=== PATIENT | female | born 1930 | race Caucasian/White ===

== ENCOUNTER 2016-11-30 08:00 | Outpatient (CLI) | payer MEDICARE, OTHER | END 2016-11-30 08:01 | disposition home or self-care (01) | DX: N39.0 Urinary tract infection, site not specified (principal) ==

== ENCOUNTER 2016-12-03 14:36 | Outpatient (CLI) | payer MEDICARE, OTHER ==
[2016-12-03] MEDS ORDERED: IOPAMIDOL-300 50 ML VIAL PO ONE (18:49)
[2016-12-03] MEDS ORDERED: IOPAMIDOL-300 100 ML VIAL IVP ONE (18:49)
== END 2016-12-03 14:37 | disposition home or self-care (01) ==
DX: R05 Cough (principal); R91.8 Other nonspecific abnormal finding of lung field; I70.0 Atherosclerosis of aorta; Z95.2 Presence of prosthetic heart valve
CPT/HCPCS: 36415; 71260; 82565; Q9967

== ENCOUNTER 2016-12-11 10:22 | Outpatient (CLI) | payer MEDICARE, OTHER | END 2016-12-11 10:23 | disposition home or self-care (01) | DX: I35.0 Nonrheumatic aortic (valve) stenosis (principal); Z95.2 Presence of prosthetic heart valve; I05.9 Rheumatic mitral valve disease, unspecified ==

== ENCOUNTER 2017-01-05 14:45 | Outpatient (CLI) | payer MEDICARE, OTHER | END 2017-01-05 14:46 | disposition home or self-care (01) | DX: I10 Essential (primary) hypertension (principal) ==

== ENCOUNTER 2017-12-02 08:00 | Outpatient (CLI) | payer MEDICARE, OTHER ==
[2017-12-02 21:05] LABS: CC,BF RBC 1528000 /mm^3; LYMPHOCYTES %,BODY FLUID 30; MONOCYTES %,BODY FLUID 10 %
[2017-12-02 21:06] LABS: BF COLOR BLOODY; BF SOURCE SYNOVIAL
== END 2017-12-02 08:01 | disposition home or self-care (01) ==
LOC: LAB.R 08:00
PROVIDERS: ATTEND Orthopaedic Surgery
DX: M25.552 Pain in left hip (principal)
CPT/HCPCS: 89051

== ENCOUNTER 2017-12-02 13:14 | Outpatient (CLI) | payer MEDICARE, OTHER ==
[2017-12-02] MEDS ORDERED: IOTHALAMATE MEGLUMINE 50 ML VIAL ONE (13:53)
[2017-12-02] MEDS ORDERED: LIDOCAINE 1% 10 ML MDV ONE (13:54)
[2017-12-02] MEDS ORDERED: BUFFERED LIDOCAINE 10 ML SYRINGE IU ONE (15:14)
[2017-12-02] MEDS ORDERED: IOTHALAMATE MEGLUMINE 50 ML VIAL IVP ONE (15:14)
--- NOTE | 2017-12-02 16:47 | XRAY Report ---
DATE OF SERVICE: 12/02/2017 LEFT HIP ASPIRATION: 12/02/2017 COMPARISON: None. INDICATION: Left hip pain. TOTAL FLUORO TIME: 1 MINUTE 36 SECONDS. TOTAL IMAGES: ONE. TOTAL DOSE: NOT RECORDED. TECHNIQUE=FINDINGS: Risks and benefits of the procedure were discussed with the patient and she desired to proceed. A standard timeout was performed, which verified the patient's name, date of , and the left hip as the correct joint. The patient was prepped and draped in normal sterile fashion. 10 mL of buffered lidocaine were injected into the soft tissues for local anesthesia. A 20-gauge spinal needle was introduced into the joint and 0.25 mL of contrast were injected into the joint to confirm placement. Minimal aspirate was obtained. There was no blood loss during the procedure. No complications. Aspirated contents were injected into a purple top tube and sent to the laboratory for analysis. IMPRESSION: SUCCESSFUL PLACEMENT OF THE NEEDLE WITHIN THE LEFT HIP. MINIMAL ASPIRATE SENT TO THE LABORATORY. TD: 12/02/2017 17:36 CHRISTY
== END 2017-12-02 13:15 | disposition home or self-care (01) ==
LOC: DI 13:14
PROVIDERS: ATTEND Orthopaedic Surgery
DX: M25.552 Pain in left hip (principal)
CPT/HCPCS: 20610; 77002; 89051; Q9961

== ENCOUNTER 2018-01-26 08:28 | Outpatient (CLI) | payer MEDICARE, OTHER ==
[2018-01-26 13:44] LABS: CALCIUM 9.6 mg/dL (8.5-10.3); CREATININE 1.1 mg/dL (0.4-1.0)
== END 2018-01-26 08:29 | disposition home or self-care (01) ==
LOC: LAB.WCP 08:28
PROVIDERS: ATTEND Internal Medicine Cardiovascular Disease
DX: I35.0 Nonrheumatic aortic (valve) stenosis (principal)
CPT/HCPCS: 36415; 80048

== ENCOUNTER 2018-01-31 08:00 | Outpatient (CLI) | payer MEDICARE, OTHER | END 2018-01-31 08:01 | disposition home or self-care (01) | LOC: LAB.WCP 08:00 | PROVIDERS: ATTEND Family Medicine | DX: R39.11 Hesitancy of micturition (principal) | CPT/HCPCS: 87086 ==

== ENCOUNTER 2018-04-29 09:53 | Emergency (ER) | payer MEDICARE, OTHER ==
--- NOTE | 2018-04-29 10:56 | ED Physician Documentation ---
History of Present Illness - Stated complaint Stated Complaint: HEAD PX - Chief complaint Chief Complaint: Neuro - Additonal information Additional information: hx from pt 87 y/o f 5 days s/p L hip surgery on plavix and wearing thigh high compression hoes yesterday Am stood up and felt weak and fell and hit her head on bedside table no LOC but per SO was very sleepy all morning now she is more alert but still has a severe ESCALANTE denies fever baseline cough no CP no leg swelling noted to be tachy 126 in ER Review of Systems Constitutional: denies: Fever, Chills Throat: denies: Sore throat Cardiac: denies: Chest pain / pressure Respiratory: reports: Cough (not new). denies: Dyspnea Musculoskeletal: reports: Joint pain (recent hip surgery). denies: Neck pain, Extremity swelling Neurologic: reports: Generalized weakness, Headache, Head injury Endocrine: reports: Easy bruising / bleeding PD PAST MEDICAL HISTORY - Past Medical History Cardiovascular: Hypertension, High cholesterol, Murmur, Valve disorder Respiratory: Other Musculoskeletal: Osteoarthritis Derm: None - Past Surgical History Past Surgical History: Yes /[employer]ER: Hysterectomy, Mastectomy Cardiovascular: Valve replacement HEENT: Cataracts, Tonsil/Adenoidectomy - Present Medications Home Medications: Ambulatory Orders Medication Instructions Recorded Confirmed Aspirin Chewable [[place] 81 02/06/14 02/06/14 Aspirin] Atenolol 02/06/14 02/06/14 Clopidogrel [Plavix] 02/06/14 02/06/14 Rosuvastatin Calcium [Crestor] 02/06/14 02/06/14 Telmisartan 20 mg DAILY PM 04/29/18 04/29/18 - Allergies Allergies/Adverse Reactions: Allergies Allergy/AdvReac Type Severity Reaction Status Date / Time Sulfa (Sulfonamide Allergy Intermediate Rash Verified 04/29/18 10:14 Antibiotics) hydrocodone AdvReac Nausea Verified 04/29/18 10:14 - Social History Does the pt smoke?: No Smoking Status: Never smoker Does the pt drink ETOH?: No - Immunizations Immunizations are current?: Yes PD ED PE NORMAL - Vitals Vital signs reviewed: Yes (intiial HR 126 now 73) - General General: Alert and oriented X 3 - HEENT HEENT: PERRL, Other (TTP right parietal no lac or hematoma) - Neck Neck: No bony TTP - Cardiac Cardiac: RRR - Respiratory Respiratory: No respiratory distress, Clear bilaterally - Abdomen Abdomen: Soft, Non tender - Derm Derm: Normal color, Other (no erythema around incision) - Extremities Extremities: No tenderness to palpate, No edema - Neuro Neuro: Alert and oriented X 3, edge drummer 2-12 intact, No motor deficit, No sensory deficit, Normal speech Eye Opening: Spontaneous Motor: Obeys Commands Verbal: Oriented GCS Score: 15 Results - Vitals Vitals: Vital Signs - 24 hr 04/29/18 04/29/18 04/29/18 10:07 12:30 14:20 Temperature 36.4 C L Heart Rate 73 76 79 Respiratory 18 18 16 Rate Blood Pressure 213/67 H 175/84 H 217/106 H O2 Saturation 99 100 100 04/29/18 15:03 Temperature Heart Rate 83 Respiratory 18 Rate Blood Pressure 184/67 H O2 Saturation 95 Oxygen O2 Source [] Room air O2 Source Room air - EKG (time done) 1122 Rate: Rate (enter#) Rhythm: NSR Sears: Normal Intervals: Normal CA QRS: LVH, Poor R wave progression Ischemia: ST elevation c/w repol (diffuse and concave up - and trop neg with sx since yesterday AM) - Labs Labs: Laboratory Tests 04/29/18 04/29/18 04/29/18 10:40 10:40 10:40 WBC 11.7 H RBC 3.81 L Hgb 11.3 L Hct 33.0 L MCV 86.5 MCH 29.7 MCHC 34.3 RDW 14.8 Plt Count 178 MPV 8.9 Neut # (Auto) 9.3 H Lymph # (Auto) 1.2 L [place] # (Auto) 0.8 Eos # (Auto) 0.3 Baso # (Auto) 0.1 Absolute Nucleated RBC 0.00 Nucleated RBC % 0.0 Manual Slide Review Indicated Platelet Estimate NORMAL (130-450,000) Sodium 132 L Potassium 4.1 Chloride 95 L Carbon Dioxide 26 Anion Gap 11.0 BUN 17 Creatinine 0.9 Estimated GFR (MDRD) 60 L Glucose 137 H Calcium 8.7 Troponin I < 0.04 Urine Color Urine Clarity Urine pH Ur Specific [place] Urine Protein Urine Glucose (UA) Urine Ketones Urine Occult Blood Urine Nitrite Urine Bilirubin Urine Urobilinogen Ur Leukocyte Esterase Ur Microscopic Review Urine Culture Comments 04/29/18 11:05 WBC RBC Hgb Hct MCV MCH MCHC RDW Plt Count MPV Neut # (Auto) Lymph # (Auto) [place] # (Auto) Eos # (Auto) Baso # (Auto) Absolute Nucleated RBC Nucleated RBC % Manual Slide Review Platelet Estimate Sodium Potassium Chloride Carbon Dioxide Anion Gap BUN Creatinine Estimated GFR (MDRD) Glucose Calcium Troponin I Urine Color YELLOW Urine Clarity CLEAR Urine pH 6.0 Ur Specific [place] 1.010 Urine Protein NEGATIVE Urine Glucose (UA) NEGATIVE Urine Ketones NEGATIVE Urine Occult Blood NEGATIVE Urine Nitrite NEGATIVE Urine Bilirubin NEGATIVE Urine Urobilinogen 0.2 (NORMAL) Ur Leukocyte Esterase NEGATIVE Ur Microscopic Review NOT INDICATED Urine Culture Comments NOT INDICATED - Rads (name of study) CTH Radiology: See rad report (STS no fx no ICH) CT CS Radiology: See rad report (no acute) CXR Radiology: See rad report (NACPD - stable sternotomy wires, airtic valve, L masectomy, cardiomegaly, scarring) doppler Radiology: See rad report (no DVT) PD MEDICAL DECISION MAKING - ED course ED course: pt felt weak and fell CTH and CS neg for injury work up for weakness reassuring - no infection based on exam UA CXR, not anemic post op, EKG not normal but trop neg and sx occurred yesterday BP high pt needs to take her micardis - non formulary at [facility] - will dc to take at home Departure - Departure Disposition: 01 Home, Self Care Clinical Impression: Fall Qualifiers: Encounter type: initial encounter Qualified Code(s): W19.XXXA - Unspecified fall, initial encounter Head injury Qualifiers: Encounter type: initial encounter Qualified Code(s): S09.90XA - Unspecified injury of head, initial encounter High blood pressure Qualifiers: Hypertension type: unspecified Qualified Code(s): I10 - Essential (primary) hypertension Condition: Good Instructions: ED Head Injury Closed Follow-Up: Margret Christianson DO [Primary Care Provider] - Dylon Ward DO [Physician No Access] - Comments: All your tests came back fine There was no skull or spine fracture and no brain bleeding We ran tests to see why you were weak - you are not anemic, there is no infection such as pneumonia or a UTI, and the blood test for heart problems was negative I think it is OK for you to go home Your blood pressure was getting high here - we do not have your kind of blood pressure medication here at the hospital so you need to take your medication as soon as your get home. Then rest and take it easy for the rest of the weekend Discharge Date/Time: 04/29/18 15:12
[2018-04-29 10:57] LABS: BASOPHILS # (AUTO) 0.1 10^3/uL (0.0-0.1); BASOPHILS % (AUTO) 0.5 %; EOSINOPHILS # (AUTO) 0.3 10^3/uL (0.0-0.7); EOSINOPHILS % (AUTO) 2.8 %; HGB - HEMOGLOBIN 11.3 g/dL (12.0-16.0); LYMPHOCYTES # (AUTO) 1.2 10^3/uL (1.5-3.5); LYMPHOCYTES % (AUTO) 10.5 %; MEAN CORPUSCULAR HEMOGLOBIN 29.7 pg (27.0-31.0); MEAN CORPUSCULAR HGB CONC 34.3 g/dL (32.0-36.0); MEAN CORPUSCULAR VOLUME 86.5 fL (81.0-99.0); MEAN PLATELET VOLUME 8.9 fL (7.9-10.8); MONOCYTES # (AUTO) 0.8 10^3/uL (0.0-1.0); MONOCYTES % (AUTO) 6.5 %; NEUTROPHILS # (AUTO) 9.3 10^3/uL (1.5-6.6); NEUTROPHILS % (AUTO) 79.7 %; PLT - PLATELET COUNT 178 10^3/uL (130-450); RED BLOOD COUNT 3.81 10^6/uL (4.20-5.40); RED CELL DISTRIBUTION WIDTH 14.8 % (12.0-15.0); WHITE BLOOD COUNT 11.7 x10^3/uL (4.8-10.8)
[2018-04-29 11:12] LABS: BILIRUBIN,URINE NEGATIVE (NEGATIVE); GLUCOSE, URINE (UA) NEGATIVE (NEGATIVE); KETONES,URINE (UA) NEGATIVE (NEGATIVE); LEUKOCYTE ESTERASE, URINE NEGATIVE (NEGATIVE); NITRITE,URINE NEGATIVE (NEGATIVE); OCCULT BLOOD,URINE NEGATIVE (NEGATIVE); PROTEIN,URINE NEGATIVE (NEGATIVE); UROBILINOGEN,URINE 0.2 (NORMAL) E.U./dL (NORMAL)
[2018-04-29 11:13] LABS: CLARITY,URINE CLEAR (CLEAR)
[2018-04-29 11:15] LABS: PLATELET ESTIMATE, MANUAL NORMAL (130-450,000) (NORMAL)
[2018-04-29 11:26] LABS: CALCIUM 8.7 mg/dL (8.5-10.3); CREATININE 0.9 mg/dL (0.4-1.0)
--- NOTE | 2018-04-29 12:15 | XRAY Preliminary Report ---
Exam: XR CHEST 1 VIEW X-RAY IMPRESSION: No acute cardiopulmonary process [facility] SITE ID: [id number]
--- NOTE | 2018-04-29 12:15 | XRAY Report ---
EXAM: CHEST RADIOGRAPHY EXAM DATE: 04/29/2018 11:33 AM. CLINICAL HISTORY: Near syncope tachy s/p surgery. COMPARISON: Chest radiographs of 11/18/2016, and 06/06/2016. Correlation made with chest CT of 2016. TECHNIQUE: 1 view. FINDINGS: Lungs/Pleura: Stable mild bibasilar predominant interstitial opacities most consistent with scarring/ fibrosis. No pleural effusion or pneumothorax. Mediastinum: Heart size upper limits of normal, stable. Stable median sternotomy wires and prosthetic aortic valve. Other: Prior left mastectomy IMPRESSION: No acute cardiopulmonary process [facility] Referring Provider Line: [phone] SITE ID: [id number]
--- NOTE | 2018-04-29 13:11 | CT Report ---
EXAM: CT HEAD EXAM DATE: 04/29/2018 12:02 PM. CLINICAL HISTORY: Fall HI on plavix. COMPARISON: Head CT of 02/06/2014. TECHNIQUE: Multiaxial CT images were obtained from the foramen magnum to the vertex. Reformats: Coron al. IV contrast: None. In accordance with CT protocol optimization, one or more of the following dose reduction techniques w ere utilized for this exam: automated exposure control, adjustment of mA and/or KV based on patient s ize, or use of iterative reconstructive technique. FINDINGS: Parenchyma: No intraparenchymal hemorrhage. No evidence of mass, midline shift,. Unchanged encephalom alacia in the right frontoparietal lobe. Enriquez-white differentiation is distinct. Extraaxial Spaces: Normal for age. No subdural or epidural collections identified. Ventricles: Stable mild ex vacuo ventricular dilatation related to mild generalized cerebral volume l oss. Sinuses and Orbits: Imaged paranasal sinuses, orbits, and mastoids show prior ocular lens replacement s mild soft tissue swelling. Bones: No evidence of fracture or calvarial defect. Other: Mild right periorbital and right frontal scalp soft tissue swelling. Stable severe atheroscler osis of intracranial vessels and vertebral arteries. IMPRESSION: Mild right periorbital and right frontal scalp soft tissue swelling. No underlying acute intracrania l abnormality on noncontrast CT. [facility] Referring Provider Line: [phone] SITE ID: [id number]
--- NOTE | 2018-04-29 13:11 | CT Preliminary Report ---
Exam: CT HEAD W/O IMPRESSION: Mild right periorbital and right frontal scalp soft tissue swelling. No underlying acute intracrania l abnormality on noncontrast CT. [facility] SITE ID: [id number]
--- NOTE | 2018-04-29 13:25 | Ultrasound Report ---
EXAM: LEFT LOWER EXTREMITY VENOUS ULTRASOUND EXAM DATE: 04/29/2018 12:38 PM. CLINICAL HISTORY: Near syncope and tachycardia after hip surgery. COMPARISON: None. TECHNIQUE: Real-time sonographic vascular imaging was performed by the nuclear plant instrument technician through the lower extremity utilizing both color-flow and Doppler spectral analysis. Multiple arborist representative static teena ges were saved for review. FINDINGS: Common Femoral Vein (CFV): Normal. CFV-GSV Junction: Normal. Profunda Femoral Vein (PFV): Normal. Femoral Vein (FV) Prox: Normal. Femoral Vein (FV) Mid: Normal. Femoral Vein (FV) Dist: Normal. Popliteal Vein: Normal. Posterior Tibial Veins: Normal. Peroneal Veins: Normal. Other: None. IMPRESSION: No evidence for deep venous thrombosis. [facility] Referring Provider Line: [phone] SITE ID: [id number]
--- NOTE | 2018-04-29 13:25 | Ultrasound Preliminary Report ---
Exam: US DUPLEX EXT VEINS LEFT IMPRESSION: No evidence for deep venous thrombosis. [facility] SITE ID: [id number]
--- NOTE | 2018-04-29 13:25 | CT Report ---
EXAM: CT CERVICAL SPINE WITHOUT CONTRAST DATE: 04/29/2018 12:02 PM. HISTORY: Fall , neck pain. COMPARISONS: Limited comparison made with head CTs of the today and 02/06/2014, chest CT of 7. Limited correlation with neck MRA of 07/26/2011.. TECHNIQUE: Thin-section axial images were acquired of the cervical spine without contrast. Post-proce ssing: Coronal and sagittal reformats. Other: None. In accordance with CT protocol optimization, one or more of the following dose reduction techniques w ere utilized for this exam: automated exposure control, adjustment of mA and/or KV based on patient s ize, or use of iterative reconstructive technique. FINDINGS: Alignment: Straightened in sagittal alignment. Bones: Osteopenic. No fracture. Interspace Levels/Facets: Severe degenerative disk disease C3-C4 through C6-C7. Bilateral facet osteoarthritis, severe at C2-C 3 through C6-C7. Bilateral uncovertebral osteoarthritis, most severe at C3-C4 through C6-C7. Musculature: Normal. No fatty atrophy. Other: The paravertebral and prevertebral soft tissues are unremarkable. Stable mild scarring at the right lung apex. IMPRESSION: No acute abnormality of the cervical spine. [facility] Referring Provider Line: [phone] SITE ID: [id number]
--- NOTE | 2018-04-29 13:25 | CT Preliminary Report ---
Exam: CT CERVICAL SPINE W/O IMPRESSION: No acute abnormality of the cervical spine. [facility] SITE ID: [id number]
[2018-04-29 15:03] VITALS: BP 184/67
== END 2018-04-29 15:12 | disposition home or self-care (01) ==
LOC: ED 09:53
DX: S09.90XA Unspecified injury of head, initial encounter (principal); W19.XXXA Unspecified fall, initial encounter; Z98.890 Other specified postprocedural states; I10 Essential (primary) hypertension; E78.00 Pure hypercholesterolemia, unspecified; M19.90 Unspecified osteoarthritis, unspecified site; I38 Endocarditis, valve unspecified; Z79.82 Long term (current) use of aspirin; Z79.02 Long term (current) use of antithrombotics/antiplatelets
CPT/HCPCS: 36415; 70450; 71045; 72125; 80048; 81001; 81003; 83605; 84484; 85025; 87040; 87086; 93005; 99283; 99284

== ENCOUNTER 2018-08-31 08:00 | Outpatient (CLI) | payer MEDICARE, OTHER ==
[2018-08-31 12:54] LABS: ALBUMIN/GLOBULIN RATIO 1.1 (1.0-2.2); ALKALINE PHOSPHATASE 120 IU/L (42-121); ALT ALANINE AMINOTRANSFERASE 18 IU/L (10-60); AST ASPARTATE AMINOTRANSFERASE 22 IU/L (10-42); BILIRUBIN,TOTAL 0.8 mg/dL (0.2-1.0); BUN - BLOOD UREA NITROGEN 9 mg/dL (6-20); CALCIUM 9.6 mg/dL (8.5-10.3); CARBON DIOXIDE - CO2 29 mmol/L (21-32); CHLORIDE 97 mmol/L (101-111); CHOL/HDL RATIO 2.8 (<4.4); CHOLESTEROL 139 mg/dL; CREATININE 0.9 mg/dL (0.4-1.0); GFR - MDRD 59 (>89); GLUCOSE 93 mg/dL (70-100); HDL CHOLESTEROL 50 mg/dL; LDL CHOLESTEROL,CALCULATED 72 mg/dL; LDL/HDL RATIO 1.4 (<4.4); SODIUM 136 mmol/L (135-145); TOTAL PROTEIN 7.7 g/dL (6.7-8.2); VLDL CHOLESTEROL 17 mg/dL
[2018-08-31 13:08] LABS: BASOPHILS # (AUTO) 0.1 10^3/uL (0.0-0.1); BASOPHILS % (AUTO) 1.1 %; EOSINOPHILS # (AUTO) 0.4 10^3/uL (0.0-0.7); EOSINOPHILS % (AUTO) 5.9 %; HGB - HEMOGLOBIN 12.5 g/dL (12.0-16.0); LYMPHOCYTES # (AUTO) 1.6 10^3/uL (1.5-3.5); LYMPHOCYTES % (AUTO) 24.7 %; MEAN CORPUSCULAR HEMOGLOBIN 29.4 pg (27.0-31.0); MEAN CORPUSCULAR HGB CONC 34.3 g/dL (32.0-36.0); MEAN CORPUSCULAR VOLUME 85.8 fL (81.0-99.0); MEAN PLATELET VOLUME 9.3 fL (7.9-10.8); MONOCYTES # (AUTO) 0.6 10^3/uL (0.0-1.0); NEUTROPHILS # (AUTO) 3.7 10^3/uL (1.5-6.6); NEUTROPHILS % (AUTO) 59.3 %; PLT - PLATELET COUNT 197 10^3/uL (130-450); RED BLOOD COUNT 4.24 10^6/uL (4.20-5.40); RED CELL DISTRIBUTION WIDTH 14.5 % (12.0-15.0); WHITE BLOOD COUNT 6.3 x10^3/uL (4.8-10.8)
== END 2018-08-31 08:01 | disposition home or self-care (01) ==
LOC: LAB.WCP 08:00
PROVIDERS: ATTEND Physician Assistant Medical
DX: I10 Essential (primary) hypertension (principal); E78.5 Hyperlipidemia, unspecified
CPT/HCPCS: 36415; 80053; 80061; 83721; 84443; 85025

== ENCOUNTER 2018-09-04 08:00 | Outpatient (CLI) | payer MEDICARE, OTHER | END 2018-09-04 08:01 | disposition home or self-care (01) | LOC: LAB.R 08:00 | PROVIDERS: ATTEND Nurse Practitioner | DX: R39.11 Hesitancy of micturition (principal) | CPT/HCPCS: 87077; 87086; 87181 ==

== ENCOUNTER 2018-11-19 20:06 | Observation (INO) | payer MEDICARE, OTHER ==
--- NOTE | 2018-11-19 20:26 | ED Physician Documentation ---
PD HPI DYSPNEA - Stated complaint Stated Complaint: SOA,WET COUGH FEVER - Chief complaint Chief Complaint: Resp - History obtained from History obtained from: Patient, Family () - History of Present Illness Timing - onset: Other (She is 6 days out from a right total knee. While she was in the hospital she started to develop a cough which is worsened since discharge yesterday. She also has a low-grade fever. There is no shortness of breath with it.) Review of Systems Constitutional: reports: Fever, Fatigue Cardiac: denies: Chest pain / pressure, Palpitations Respiratory: reports: Cough. denies: Dyspnea GI: denies: Abdominal Pain, Nausea, Vomiting PD PAST MEDICAL HISTORY - Past Medical History Cardiovascular: Hypertension, High cholesterol, Murmur, Valve disorder Respiratory: Other Musculoskeletal: Osteoarthritis Derm: None - Past Surgical History Past Surgical History: Yes Ortho: Hip replacement /[employer]: Hysterectomy, Mastectomy Cardiovascular: Valve replacement HEENT: Cataracts, Tonsil/Adenoidectomy - Present Medications Home Medications: Ambulatory Orders Medication Instructions Recorded Confirmed Clopidogrel [Plavix] 02/06/14 02/06/14 RX: Aspirin Chewable [[place] 81 02/06/14 02/06/14 Aspirin] RX: Atenolol 02/06/14 02/06/14 Rosuvastatin Calcium [Crestor] 02/06/14 02/06/14 RX: Telmisartan 20 mg DAILY PM 04/29/18 04/29/18 - Allergies Allergies/Adverse Reactions: Allergies Allergy/AdvReac Type Severity Reaction Status Date / Time Sulfa (Sulfonamide Allergy Intermediate Rash Verified 11/19/18 20:15 Antibiotics) hydrocodone AdvReac Nausea Verified 11/19/18 20:15 - Social History Does the pt smoke?: No Smoking Status: Never smoker Does the pt drink ETOH?: No - Immunizations Immunizations are current?: Yes PD ED PE NORMAL - Vitals Vital signs reviewed: Yes - General General: Alert and oriented X 3, No acute distress, Other (Frequent bronchitic cough) - Neck Neck: Supple, no meningeal sign, No bony TTP - Cardiac Cardiac: RRR, Other (3 out of 6 decrescendo systolic murmur) - Respiratory Respiratory: No respiratory distress, Other (Rhonchorous) - Abdomen Abdomen: Non tender - Back Back: No CVA TTP, No spinal TTP - Derm Derm: Normal color, Warm and dry - Extremities Extremities: Other (RLE in compression stocking, Mild LLD edema.) - Neuro Neuro: Alert and oriented X 3, Normal speech - Psych Psych: Normal mood, Normal affect Results - Vitals Vitals: Vital Signs - 24 hr 11/19/18 20:10 Temperature 37.2 C Heart Rate 77 Respiratory 20 Rate Blood Pressure 147/100 H O2 Saturation 100 Oxygen O2 Source [With Activity] Room air O2 Source Room air - Labs Labs: Laboratory Tests 11/19/18 11/19/18 11/19/18 20:30 20:30 20:30 WBC 10.0 RBC 3.57 L Hgb 10.3 L Hct 31.1 L MCV 87.2 MCH 28.8 MCHC 33.1 RDW 14.7 Plt Count 215 MPV 8.2 Neut # (Auto) 7.1 H Lymph # (Auto) 1.1 L [place] # (Auto) 1.2 H Eos # (Auto) 0.6 Baso # (Auto) 0.1 Absolute Nucleated RBC 0.00 Nucleated RBC % 0.0 PT INR Sodium 128 L Potassium 4.4 Chloride 94 L Carbon Dioxide 25 Anion Gap 9.0 BUN 32 H Creatinine 1.0 Estimated GFR (MDRD) 53 L Glucose 127 H Calcium 8.7 Total Bilirubin 1.4 H AST 203 H ALT 175 H Alkaline Phosphatase 271 H B-Natriuretic Peptide Total Protein 7.4 Albumin 3.4 Globulin 4.0 Albumin/Globulin Ratio 0.9 L Lipase 28 Acetaminophen < 10 L 11/19/18 11/19/18 20:30 20:30 WBC RBC Hgb Hct MCV MCH MCHC RDW Plt Count MPV Neut # (Auto) Lymph # (Auto) [place] # (Auto) Eos # (Auto) Baso # (Auto) Absolute Nucleated RBC Nucleated RBC % PT 11.4 INR 1.0 Sodium Potassium Chloride Carbon Dioxide Anion Gap BUN Creatinine Estimated GFR (MDRD) Glucose Calcium Total Bilirubin AST ALT Alkaline Phosphatase B-Natriuretic Peptide 869 H Total Protein Albumin Globulin Albumin/Globulin Ratio Lipase Acetaminophen - Rads (name of study) 2v chest Radiology: EMP read contemporaneously (Chronic findings without acute pneumonia) abd sono Radiology: EMP read contemporaneously (Liver looks okay and there are no gallstones. She has a pancreatic cyst and possible right kidney lesion.) PD MEDICAL DECISION MAKING - ED course ED course: PE is considered given her postoperative status, however it is very inconsistent with her complaints which is a productive cough without shortness of breath and her vital signs. Her chest x-ray was clear. It is noted that on her labs she has elevated liver enzyme. This is a new phenomenon for her. She does not drink alcohol to any significance. We discussed how much Tylenol she is been taking. She is only had a couple of doses since leaving the hospital. She was on Tylenol in the hospital but I am sure they were not giving her more than 3-4 g/day. She has no right upper quadrant pain. I also checked a BNP because of the liver enzymes thinking it might be hepatic congestion and this was positive. Her aortic valve is 11 years old. She is never had any problems with CHF. I noticed a murmur, she was not familiar with anybody ever mentioning this in the past. Although I had previously thought PE was really not likely given hepatic congestion and evidence of right-sided heart failure this deserved further merits and a CT of the chest was done. The abdomen was included as well given the possible renal lesion on the ultrasound the ultrasound did not show any particular reason for the elevated liver enzymes. There is no Tylenol in her system. Spoke with Dr. Dinero for observation and she agrees the patient needs an echo and we need to see which way her liver enzymes are and she also like me to do blood cultures. She did note in chart review that in 2013 a loud murmur was documented so it may not be new. Departure - Departure Disposition: ED Place in Observation Clinical Impression: Congestive heart failure, Valvular disease, Elevated liver enzymes, Cough, Knee joint replacement status, Fever Condition: Serious Discharge Date/Time: 11/20/18 00:03
[2018-11-19 20:37] LABS: BASOPHILS # (AUTO) 0.1 10^3/uL (0.0-0.1); BASOPHILS % (AUTO) 0.7 %; EOSINOPHILS # (AUTO) 0.6 10^3/uL (0.0-0.7); EOSINOPHILS % (AUTO) 6.4 %; HGB - HEMOGLOBIN 10.3 g/dL (12.0-16.0); LYMPHOCYTES # (AUTO) 1.1 10^3/uL (1.5-3.5); LYMPHOCYTES % (AUTO) 10.6 %; MEAN CORPUSCULAR HEMOGLOBIN 28.8 pg (27.0-31.0); MEAN CORPUSCULAR HGB CONC 33.1 g/dL (32.0-36.0); MEAN CORPUSCULAR VOLUME 87.2 fL (81.0-99.0); MEAN PLATELET VOLUME 8.2 fL (7.9-10.8); MONOCYTES # (AUTO) 1.2 10^3/uL (0.0-1.0); MONOCYTES % (AUTO) 11.9 %; NEUTROPHILS # (AUTO) 7.1 10^3/uL (1.5-6.6); NEUTROPHILS % (AUTO) 70.4 %; PLT - PLATELET COUNT 215 10^3/uL (130-450); RED BLOOD COUNT 3.57 10^6/uL (4.20-5.40); RED CELL DISTRIBUTION WIDTH 14.7 % (12.0-15.0)
[2018-11-19 20:50] LABS: ALBUMIN 3.4 g/dL (3.2-5.5); ALBUMIN/GLOBULIN RATIO 0.9 (1.0-2.2); BILIRUBIN,TOTAL 1.4 mg/dL (0.2-1.0); CALCIUM 8.7 mg/dL (8.5-10.3); TOTAL PROTEIN 7.4 g/dL (6.7-8.2)
--- NOTE | 2018-11-19 21:06 | XRAY Report ---
Reason: cough Procedure Date: 11/19/2018 Accession Number: [id number] / [id number] Procedure: XR - Chest 2 View X-Ray CPT Code: 75296 FULL RESULT: EXAM: CHEST RADIOGRAPHY EXAM DATE: 11/19/2018 08:52 PM. CLINICAL HISTORY: Cough. COMPARISON: CHEST 2 VIEW PA/LAT 11/01/2018 9:46 AM CHEST 2 VIEW PA/LAT 06/06/2016 12:00 PM. TECHNIQUE: 2 views. FINDINGS: Lungs/Pleura: There are streaky bibasilar densities without significant change. There is linear density at the left lung base. Overall, lungs appear unchanged. No developing consolidation. Mediastinum: Heart size is normal. Trachea is midline. Previous sternotomy is noted. Other: None. IMPRESSION: 1. No significant change. No acute pneumonia. [facility]
[2018-11-19 21:51] LABS: PT - PROTHROMBIN TIME 11.4 secs (9.9-12.6)
[2018-11-19] MEDS ORDERED: IOVERSOL 320 100 ML VIAL IVP ONE ×2 (23:01→23:32)
--- NOTE | 2018-11-19 23:19 | Ultrasound Report ---
Reason: high liver enz Procedure Date: 11/19/2018 Accession Number: [id number] / [id number] Procedure: US - Abdomen Limited CPT Code: FULL RESULT: EXAM: ABDOMEN ULTRASOUND LIMITED, RUQ EXAM DATE: 11/19/2018 10:55 PM. CLINICAL HISTORY: High liver enz. COMPARISON: None. TECHNIQUE: Real-time scanning was performed with static images obtained. FINDINGS: Liver: Normal in size and echotexture. cm. Main portal vein flow: Hepatopetal. Gallbladder: Normal. No stones, wall thickening, or sonographic Medel's sign. Biliary System: CBD measures 4.7 mm. No intrahepatic or extrahepatic ductal dilatation. Other: The pancreas to the extent imaged is unremarkable. There is a cyst contiguous with the mid body of the pancreas which measures 13 mm x 12 mm x 15 mm. Right kidney is atrophic measuring 7 cm. The cortex is thin. There is increased echogenicity of the kidney. There is a questionable loculated mass measuring 18 mm along the inferior aspect of the right kidney. IMPRESSION: 1. Unremarkable liver. 2. No evidence for gallstones. 3. Cyst contiguous with the anterior body of the pancreas. 4. Questionable lesion involving the inferior pole of the right kidney. The right kidney is atrophic and the cortex is thinned. [facility]
[2018-11-19] MEDS ORDERED: SODIUM CHLORIDE FLUSH 0.9% 10 ML SYRINGE IVP PRN (23:32)
[2018-11-19] MEDS ORDERED: FUROSEMIDE 20 MG/2 ML VIAL IVP SCH (23:58)
--- NOTE | 2018-11-19 23:59 | CT Report ---
Reason: post op dyspnea Procedure Date: 11/19/2018 Accession Number: [id number] / [id number] Procedure: CT - Chest Angio (PE) CPT Code: FULL RESULT: EXAM: CT ANGIOGRAM CHEST EXAM DATE: 11/19/2018 11:45 PM. CLINICAL HISTORY: Post op dyspnea. COMPARISON: CHEST W/ 12/03/2016 4:45 PM. TECHNIQUE: Routine helical imaging was performed through the chest in the pulmonary arterial phase. IV Contrast: OPTIRAY 320 100mL. Reconstructions: Coronal 3-D MIP reconstructions.Sagittal and coronal. In accordance with CT protocol optimization, one or more of the following dose reduction techniques were utilized for this exam: automated exposure control, adjustment of mA and/or KV based on patient size, or use of iterative reconstructive technique. FINDINGS: Pulmonary Arteries: Diagnostic quality: Adequate through the segmental arteries. No evidence for acute or chronic pulmonary emboli. Respiratory motion limits evaluation of lower lobe subsegmental branches. RV/LV is within normal limits. There is no interventricular septal bowing. There is reflux of contrast material in the IVC. Lungs/Pleura: Bibasilar atelectasis. No effusion or pneumothorax. Mediastinum: Normal. No cardiac enlargement or adenopathy. Thoracic Aorta: Mild atherosclerotic calcification. Upper Abdomen: Please refer to separate CT. Other: None. IMPRESSION: Normal pulmonary CT angiogram. No pulmonary emboli. [facility]
--- NOTE | 2018-11-20 00:04 | CT Report ---
Reason: renal mass Procedure Date: 11/19/2018 Accession Number: [id number] / [id number] Procedure: CT - Abdomen W/ CPT Code: FULL RESULT: EXAM: CT ABDOMEN EXAM DATE: 11/19/2018 11:19 PM. CLINICAL HISTORY: Renal mass. COMPARISON: ABDOMEN LIMITED 11/19/2018 10:04 PM. TECHNIQUE: Routine helical CT imaging was performed through the abdomen. IV contrast: OPTIRAY 320 100mL Enteric contrast: No. Reconstruction: Coronal and sagittal. In accordance with CT protocol optimization, one or more of the following dose reduction techniques were utilized for this exam: automated exposure control, adjustment of mA and/or KV based on patient size, or use of iterative reconstructive technique. FINDINGS: Lung Bases: Please see separate CT. Liver: Normal. No masses. Gallbladder/Bile Ducts: Unremarkable. Spleen: Normal. Pancreas: Pancreatic atrophy. No focal sub-appreciated. Adrenal Glands: Normal. Kidneys: Atrophic right kidney, with cortical thinning. 2 cm enhancing nodule arising from the lower pole, suspicious for neoplasm. Unremarkable appearance of the left kidney. Normal enhancement of the right renal vein. Peritoneal Cavity/Bowel: Normal. No free fluid, free air or adenopathy. No masses or acute inflammatory process. The appendix is well visualized and normal. Vasculature: No aneurysms or other significant abnormality. Bones: No significant abnormality. Other: None. IMPRESSION: 2 cm enhancing nodule arising from the lower pole of the right kidney, suspicious for neoplasm. Right renal atrophy. Pancreatic atrophy. [facility]
[2018-11-20] MEDS ORDERED: TELMISARTAN 20 MG PO SCH (01:00)
[2018-11-20] MEDS: SODIUM CHLORIDE FLUSH 0.9% 10 ML SYRINGE IVP SCH ×2 (01:13→08:07)
[2018-11-20] MEDS ORDERED: LOSARTAN 50 MG TABLET PO SCH ×2 (01:14→21:00)
[2018-11-20] MEDS: ACETAMINOPHEN 325 MG TABLET PO PRN ×3 (01:34→12:50)
--- NOTE | 2018-11-20 01:40 | HISTORY & PHYSICAL EXAMINATION ---
DATE OF SERVICE: 11/19/2018 Physician: Jessica Dinero MD HISTORY OF PRESENT ILLNESS: This is an 88-year-old white female with a history of an aortic valve replacement with a bioprosthetic valve 11 years ago. She has a history of prior TIAs, was admitted here in 2013 for a TIA evaluation that showed multiple prior TIAs on brain imaging and an Echo was done that showed no intracardiac shunt or clot, but her aortic valve prosthesis had severe stenosis with a calculated valve area of 0.4 cm2 (and the murmur was labeled 4/6). It is not clear if there had been further intervention for that bioprosthetic stenotic valve. Two weeks ago, according to the , the patient underwent an Echo for preop clearance to undergo elective knee surgery and she had successful knee surgery six days ago. Postop in the hospital, she developed a cough and mild shortness of breath; and as she went home, she had fevers at home. She remembers that her "sodium was low an she was sent home on salt tablets". Today, she presented to the emergency room because of worsening shortness of breath. PAST MEDICAL HISTORY 1. 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 2. TIAs. 3. Recent knee replacement. ALLERGIES: SULFA AND HYDROCODONE. MEDICATIONS 1. Telmisartan 20 mg daily. 2. Crestor, unknown dose daily. 3. Plavix 75 mg daily. 4. Baby aspirin daily. 5. Atenolol, unknown dose daily. SOCIAL HISTORY: The patient is a nonsmoker, drinks no alcohol, uses no illicit drugs. FAMILY HISTORY: No inherited diseases. REVIEW OF SYSTEMS: The patient lives with her . The patient is active in her house. She was not seen by her PCP for the shortness of breath or fevers after arriving home from the knee replacement for which PT is scheduled. A comprehensive review of systems was performed and the pertinent positives are listed, the rest are negative. PHYSICAL EXAMINATION GENERAL: Elderly white female. She is in no respiratory distress at rest. VITAL SIGNS: Blood pressure 147/100, heart rate 77 in sinus rhythm, room air saturation 100%, temperature 37.2. HEENT: Unremarkable. NECK: Without JVD or carotid bruits. CHEST: Clear. HEART: Heart sounds have a 3-4/6 systolic murmur, heard best at the base. There is no gallop or RV heave. ABDOMEN: Soft, nontender. No organomegaly. No guarding or rebound. EXTREMITIES: No edema. NEUROLOGIC: Grossly intact. LABORATORY DATA: Sodium 128, potassium 4.4, BUN 32, creatinine 1.0 (The patient's baseline sodium is in the 130s and normal BUN). Bilirubin 1.4, AST 203, ALT 175, alkaline phosphatase 271 (She normally has normal liver tests). BNP 869. There is no prior BNP for comparison. Lipase level normal. White blood count 10.3 and her last one was 13. Platelet count normal at 215. INR 1.0. Serum acetaminophen level was not detected. IMAGING STUDIES: Chest x-ray: No active pulmonary disease, no pneumonia. There are streaky bibasilar densities, linear, in the left base, which have been there before. Abdominal ultrasound showed no evidence of gallstones, unremarkable liver exam, a cyst in the anterior pancreas and a lesion in the inferior pole of the right kidney. The right kidney is atrophic and the cortex is thinned. A CT of the chest and a CT of the abdomen are pending. IMPRESSION/DIAGNOSES 1. Shortness of breath. This may be from congestive heart failure given the high BNP, a viral syndrome since it was associated with fever, or it could be from hospital-acquired pneumonia, but this is not confirmed by chest x-ray or from a PE, for which she is being evaluated now, or from her new anemia. The most likely cause is CHF from taking new "salt tablets". 2. Fever. Possibly a viral syndrome, but could be a postoperative fever and even from a PE as well. 3. Elevated brain natriuretic peptide. This suggests CHF, although pulmonary edema is not seen on chest x-ray (except x-ray findings could lag behind the clinical picture). 4. Hyponatremia. This also suggests hemodilution, possibly from IV infusions during her knee replacement admission, but most likely from volume overload from CHF. 5. History of aortic valve replacement with a bioprosthetic valve. Four years ago already the gradient was elevated and it was deemed stenotic by Echo done here. The patient just had an Echo done for preop clearance; and presumably if this was stenotic, she would not have been cleared to undergo elective surgery with anesthesia. Therefore, to obtain this Echo report is important for comparison. 6. Loud systolic murmur. This could be exacerbated by her anemia, but it was noted in a 2014 hospital discharge summary and may not be new. It may change with HTN or volume overload. 7. Anemia. This is possibly from blood loss from the orthopedic surgery or hemodilution with volume overload with congestive heart failure. 8. Elevated liver function tests. This suggests passive congestion in the face of the elevated BNP. There appears to be no liver abnormality or obstructive problem to explain these elevated LFTs. 9. Elevated BUN. This is ironic because it suggests intravascular depletion; however, her BNP is elevated. This also could be a sign of gastrointestinal blood loss. 10. Recent total knee replacement. 11. Right renal mass, possible malignancy. The patient is not aware of this yet. This will need outpatient evaluation. PLAN 1. Place the patient in Observation status on telemetry. 2. Obtain sputum and blood cultures to evaluate for bacteremia. Especially concerning would be vegetations on the prosthetic valve, given the fever. 3. Give a trial of diuretics and follow her BNP, I's and O's and daily weights. 4. If PE is found by CT of the chest, then begin therapeutic anticoagulation. 5. Obtain the echo done two weeks ago for comparisons and get an echo here for LVEF and to evaluate the bioprosthetic valve and murmur. 6. Follow her CBC, as she may need a transfusion. 7. Guaiac her stool and obtain an iron panel. 8. Follow her electrolytes regarding her hyponatremia and we will start a low-salt diet, but also free water restriction. 8. The renal mass needs evaluation. DEEP VENOUS THROMBOSIS PROPHYLAXIS: Sequential compression devices unless pharmacotherapy is used if she has a PE. CODE STATUS: FULL CODE. ATTESTATION: The patient is expected to be discharged or transferred to another facility within 96 hours: Yes. TD: 11/20/2018 00:09 CHRISTY
[2018-11-20 05:16] LABS: BASOPHILS # (AUTO) 0.1 10^3/uL (0.0-0.1); BASOPHILS % (AUTO) 0.5 %; EOSINOPHILS # (AUTO) 0.4 10^3/uL (0.0-0.7); EOSINOPHILS % (AUTO) 4.4 %; HGB - HEMOGLOBIN 9.3 g/dL (12.0-16.0); LYMPHOCYTES # (AUTO) 1.4 10^3/uL (1.5-3.5); LYMPHOCYTES % (AUTO) 13.8 %; MEAN CORPUSCULAR HEMOGLOBIN 29.5 pg (27.0-31.0); MEAN CORPUSCULAR VOLUME 86.6 fL (81.0-99.0); MEAN PLATELET VOLUME 8.1 fL (7.9-10.8); MONOCYTES # (AUTO) 1.4 10^3/uL (0.0-1.0); MONOCYTES % (AUTO) 13.6 %; NEUTROPHILS # (AUTO) 6.8 10^3/uL (1.5-6.6); NEUTROPHILS % (AUTO) 67.7 %; PLT - PLATELET COUNT 192 10^3/uL (130-450); RED BLOOD COUNT 3.14 10^6/uL (4.20-5.40); RED CELL DISTRIBUTION WIDTH 14.1 % (12.0-15.0); WHITE BLOOD COUNT 10.1 x10^3/uL (4.8-10.8)
[2018-11-20 05:35] LABS: ALBUMIN/GLOBULIN RATIO 0.9 (1.0-2.2); BILIRUBIN,TOTAL 1.4 mg/dL (0.2-1.0); CALCIUM 8.4 mg/dL (8.5-10.3); CREATININE 0.9 mg/dL (0.4-1.0); MAGNESIUM 1.9 mg/dL (1.7-2.8); TOTAL PROTEIN 6.4 g/dL (6.7-8.2)
[2018-11-20] MEDS ORDERED: PANTOPRAZOLE 40 MG TABLET PO SCH (07:00)
[2018-11-20] MEDS ORDERED: CLOPIDOGREL 75 MG TABLET PO SCH (09:00)
[2018-11-20] MEDS ORDERED: ASPIRIN EC 81 MG TABLET PO SCH (09:00)
[2018-11-20] MEDS ORDERED: ATENOLOL 25 MG TABLET PO SCH (09:00)
[2018-11-20] MEDS ORDERED: POLYETHYLENE GLYCOL 3350 17 GM PACKET PO SCH (09:00)
[2018-11-20] MEDS ORDERED: SPIRONOLACTONE 25 MG TABLET PO SCH (13:35)
[2018-11-20 13:41] VITALS: BP 146/56
[2018-11-20] MEDS ORDERED: guaiFENesin 600 MG TABLET PO SCH (14:00)
[2018-11-20] MEDS ORDERED: METOPROLOL SUCCINATE 25 MG TABLET PO SCH (14:00)
--- NOTE | 2018-11-20 14:49 | Discharge Plan ---
Discharge Plan Disposition: Home, Self Care Condition: Good Prescriptions: Aspirin [Adult Aspirin Regimen] 81 mg PO DAILY #30 tablet. Cholecalciferol (Vitamin D3) [Vitamin D] 2,000 unit PO DAILY #30 capsule Clopidogrel [Plavix] 75 mg PO DAILY #30 tablet guaiFENesin [Mucinex] 600 mg PO BID PRN #30 tablet PRN Reason: Cough Metoprolol Succinate [Toprol Xl] 25 mg PO BIDWM #60 tablet Multivit,Calc,Mins/Folic Acid [One-A-Day Proactive 65 Plus Tb] 200 mcg PO DAILY #30 tablet Rosuvastatin Calcium [Crestor] 10 mg PO DAILY #30 tablet Spironolactone [Aldactone] 25 mg PO DAILY #30 tablet Telmisartan 40 mg PO DAILY #30 tablet Ubidecarenone [Coenzyme Q-10] 30 mg PO DAILY #30 capsule Diet: Cardiac Activity Restrictions: Activity as Tolerated Shower Restrictions: No Assistance Devices: Walker Additional Instructions or Follow Up instructions: You were admitted for shortness of breath, fever and a cough. Imaging showed NO infection (pneumonia). A walking oxygen study showed no need for home oxygen. I have given you something for your cough. Please use an incentive spirometer during every commercial at home or several times per hour until your cough concludes. Your cough will likely resolve as your fluid balance improves. Your liver enzymes were altered which was concerning for liver disease. Imaging including a abdominal CT with an ultrasound both studies showing a normal appearing liver. These elevated liver enzymes should be re-checked once your fluid status becomes better managed as these are expected to return to normal. This situation can be common in acute fluid overload or congestive heart failure exacerbation, which leads to a temporary impaired blood flow to the liver. Your sodium level was low (hyponatremia), which also indicated fluid overload. When there is too much liquid content in your vessels, it causes a dilution of the sodium electrolyte. Taking salt tablets is NOT indicated as this will only create too much fluid within your vessels thereby making your blood pressure too high and does not solve the problem. Over time this will lead to worsening heart function. To best manage your heart failure and preserve your current heart function the heart rate should stay steady, so I have changed your beta salome to Metoprolol Succinate (long acting). You were found to have pulmonary hypertension which caused abdominal girth edema, congestion into the lungs, and lower extremity edema. The first thing to rule out is any indication of sleep apnea as this is a fixable cause of the elevated right heart pressures. Please have your PCP order a sleep study, unless you have had one since November 2016. To best treat the pulmonary hypertension, you were started on Spironolactone. During the imaging studies, you were found to have a right kidney mass that will need follow up outpatient. Please consider cardiac rehab/pulmonary rehab of which you qualify. This is a good helping hand to prevent admissions and to catch fluid overload problems early. Many patient say that this is a great social outing! Your PCP will have to order this. Please STOP: Salt tablets Metoprolol tartrate Chlorthalidone Valsartan Atenolol Please see your PCP within one week. Your PCP will get a discharge summary as to the events, testing and conclusion from this hospital stay. Follow-Up Care: [facility] - Cardiac No Smoking: If you smoke, Please STOP! Call for help. Follow-up with: Margret Christianson DO [Primary Care Provider] -
--- NOTE | 2018-11-20 14:59 | DISCHARGE SUMMARY ---
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 Fever, unspecified (R50.9) resolved, low grade. Other specified abnormal findings of blood chemistry (R79.89) resolved. Hypo-osmolality and hyponatremia (E87.1) improved, likely due to fluid overload. 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 Cardiac murmur, unspecified (R01.1) chronic, stable. Anemia, unspecified (D64.9) chronic, stable. Abnormal results of liver function studies (R94.5) improved, likely due to liver congestion in the setting of this acute illness. Abnormal finding of blood chemistry, unspecified (R79.9) resolved. 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 Other specified disorders of kidney and ureter (N28.89) new on this admission, patient was told and given her imaging report. - HPI History of Present Illness: Georgina Wu is an 88-year old female with a past medical history of an aortic valve replacement 11 years ago. She has a history of prior TIAs, was admitted for a TIA evaluation that showed multiple TIAs on brain imaging and a echo was completed that showed no intracardiac shunt or clots. Two weeks ago the patient underwent a pre-op clearance and Dr. Tomas-Cardiology cleared her for surgery which she underwent this past Tuesday of a right knee repair. Her post op course was complicated with a cough and increased shortness of breath. She was found to be hyponatremic, and was sent home on salt tabs, but came to our ED with similar complaints only much worse shortness of breath. She was admitted for observation and records have been requested from her previous hospital stay. - HOSPITAL COURSE Hospital Course: The patient was given moderate doses of IV lasix that was changed to PO Spironolactone as she was found to have moderate to severe pulmonary HTN. She was taken off the salt tablets as this was thought to be making her fluid overload worse. She was changed to metoprolol succinate to better control her heart rates. Her medication list was simplified and new prescriptions were sent to the pharmacy. Preliminary echo results showed a normally functioning aortic valve and her right knee gave her no trouble while hospitalized with us. - ALLERGIES Allergies/Adverse Reactions: Allergies Allergy/AdvReac Type Severity Reaction Status Date / Time Sulfa (Sulfonamide Allergy Intermediate Rash Verified 11/19/18 20:15 Antibiotics) hydrocodone AdvReac Nausea Verified 11/19/18 20:15 - MEDICATIONS Home Medications: Ambulatory Orders Medication Instructions Recorded Confirmed Aspirin [Adult Aspirin Regimen] 81 mg PO DAILY #30 tablet. 11/20/18 Cholecalciferol (Vitamin D3) 2,000 unit PO DAILY #30 capsule 11/20/18 [Vitamin D] Clopidogrel [Plavix] 75 mg PO DAILY #30 tablet 11/20/18 Metoprolol Succinate [Toprol Xl] 25 mg PO BIDWM #60 tablet 11/20/18 Multivit,Calc,Mins/Folic Acid 200 mcg PO DAILY #30 tablet 11/20/18 [One-A-Day Proactive 65 Plus Tb] Rosuvastatin Calcium [Crestor] 10 mg PO DAILY #30 tablet 11/20/18 Spironolactone [Aldactone] 25 mg PO DAILY #30 tablet 11/20/18 Telmisartan 40 mg PO DAILY #30 tablet 11/20/18 Ubidecarenone [Coenzyme Q-10] 30 mg PO DAILY #30 capsule 11/20/18 guaiFENesin [Mucinex] 600 mg PO BID PRN #30 tablet 11/20/18 - PHYSICAL EXAM AT DISCHARGE General Appearance: positive: No acute distress, Alert Eyes Bilateral: positive: PERRL ENT: positive: Pharynx nml, No signs of dehydration Neck: positive: Thyroid nml, No JVD, Trachea midline Respiratory: positive: Chest non-tender, No respiratory distress, Rhonchi (bilateral low lobe crackles) Cardiovascular: positive: Regular rate & rhythm, No gallop, Systolic murmur, Decreased pulse(s) Peripheral Pulses: positive: 1+ Abdomen: positive: Non-tender, Nml bowel sounds, Other (rounded, soft) Skin: positive: No rash, Warm, Dry Extremities: positive: Non-tender, Full ROM, Pedal edema (chronic BLE edema, right knee-post op.), Joint swelling Neurologic/Psychiatric: positive: Oriented x3, CN's nml (2-12), Motor nml, Sensation nml, Mood/affect nml Reflexes: Bicep (R): 3+, Bicep (L): 3+, Ankle (R): 3+, Ankle (L): 3+ - LABS Result Diagrams: 11/20/18 05:00 11/20/18 05:00 - DIAGNOSTIC IMAGING Diagnostic Imaging Results: Final report reviewed - SEPSIS Current Stage of Sepsis: Ruled out - FOLLOW UP Follow Up: Disposition: Home, Self Care Prescriptions: Aspirin [Adult Aspirin Regimen] 81 mg PO DAILY #30 tablet. Cholecalciferol (Vitamin D3) [Vitamin D] 2,000 unit PO DAILY #30 capsule Clopidogrel [Plavix] 75 mg PO DAILY #30 tablet guaiFENesin [Mucinex] 600 mg PO BID PRN #30 tablet PRN Reason: Cough Metoprolol Succinate [Toprol Xl] 25 mg PO BIDWM #60 tablet Multivit,Calc,Mins/Folic Acid [One-A-Day Proactive 65 Plus Tb] 200 mcg PO DAILY #30 tablet Rosuvastatin Calcium [Crestor] 10 mg PO DAILY #30 tablet Spironolactone [Aldactone] 25 mg PO DAILY #30 tablet Telmisartan 40 mg PO DAILY #30 tablet Ubidecarenone [Coenzyme Q-10] 30 mg PO DAILY #30 capsule Additional Instructions or Follow Up instructions: You were admitted for shortness of breath, fever and a cough. Imaging showed NO infection (pneumonia). A walking oxygen study showed no need for home oxygen. I have given you something for your cough. Please use an incentive spirometer during every commercial at home or several times per hour until your cough concludes. Your cough will likely resolve as your fluid balance improves. Your liver enzymes were altered which was concerning for liver disease. Imaging including a abdominal CT with an ultrasound both studies showing a normal ap pearing liver. These elevated liver enzymes should be re-checked once your fluid status becomes better managed as these are expected to return to normal. This situation can be common in acute fluid overload or congestive heart failure exacerbation, which leads to a temporary impaired blood flow to the liver. Your sodium level was low (hyponatremia), which also indicated fluid overload. When there is too much liquid content in your vessels, it causes a dilution of the sodium electrolyte. Taking salt tablets is NOT indicated as this will only create too much fluid within your vessels thereby making your blood pressure too high and does not solve the problem. Over time this will lead to worsening heart function. To best manage your heart failure and preserve your current heart function the heart rate should stay steady, so I have changed your beta salome to Metoprolol Succinate (long acting). You were found to have pulmonary hypertension which caused abdominal girth edema, congestion into the lungs, and lower extremity edema. The first thing to rule out is any indication of sleep apnea as this is a fixable cause of the elevated right heart pressures. Please have your PCP order a sleep study, unless you have had one since November 2016. To best treat the pulmonary hypertension, you were started on Spironolactone. During the imaging studies, you were found to have a right kidney mass that will need follow up outpatient. Please consider cardiac rehab/pulmonary rehab of which you qualify. This is a good helping hand to prevent admissions and to catch fluid overload problems early. Many patient say that this is a great social outing! Your PCP will have to order this. Please STOP: Salt tablets Metoprolol tartrate Chlorthalidone Valsartan Atenolol Please see your PCP within one week. Your PCP will get a discharge summary as to the events, testing and conclusion from this hospital stay. - TIME SPENT Time Spent in Discharge (Minutes): 65
[2018-11-21] MEDS ORDERED: METOPROLOL SUCCINATE 25 MG TABLET PO SCH (09:00)
== END 2018-11-20 15:45 | disposition home or self-care (01) ==
LOC: ED 20:06 → OBS 23:32
PROVIDERS: ADMIT Internal Medicine; ATTEND Nurse Practitioner
DX: I11.0 Hypertensive heart disease with heart failure (principal); I50.813 Acute on chronic right heart failure; R50.82 Postprocedural fever; R05 Cough; R01.1 Cardiac murmur, unspecified; T50.905A Adverse effect of unspecified drugs, medicaments and biological substances, initial encounter; Y92.009 Unspecified place in unspecified non-institutional (private) residence as the place of occurrence of the external cause; I27.20 Pulmonary hypertension, unspecified; R74.8 Abnormal levels of other serum enzymes; E87.1 Hypo-osmolality and hyponatremia; D64.9 Anemia, unspecified; N28.89 Other specified disorders of kidney and ureter; Z96.651 Presence of right artificial knee joint; Z95.3 Presence of xenogenic heart valve; Z86.73 Personal history of transient ischemic attack (TIA), and cerebral infarction without residual deficits; Z79.899 Other long term (current) drug therapy; Z79.02 Long term (current) use of antithrombotics/antiplatelets
CPT/HCPCS: 36415; 71046; 71275; 74160; 76705; 80053; 82272; 83540; 83690; 83735; 83880; 84466; 85025; 85610; 87040; 87070; 87205; 93306; 94761; 96374; 99283; 99284; A9270; G0378; Q9967; 80307; 87275; 87276

== ENCOUNTER 2018-11-25 09:49 | Outpatient (CLI) | payer MEDICARE, OTHER ==
[2018-11-25 10:19] LABS: BASOPHILS # (AUTO) 0.1 10^3/uL (0.0-0.1); BASOPHILS % (AUTO) 0.9 %; EOSINOPHILS # (AUTO) 0.3 10^3/uL (0.0-0.7); EOSINOPHILS % (AUTO) 2.3 %; HGB - HEMOGLOBIN 9.6 g/dL (12.0-16.0); LYMPHOCYTES # (AUTO) 1.2 10^3/uL (1.5-3.5); LYMPHOCYTES % (AUTO) 10.9 %; MEAN CORPUSCULAR HEMOGLOBIN 28.9 pg (27.0-31.0); MEAN PLATELET VOLUME 7.4 fL (7.9-10.8); MONOCYTES # (AUTO) 1.2 10^3/uL (0.0-1.0); MONOCYTES % (AUTO) 11.3 %; NEUTROPHILS # (AUTO) 8.2 10^3/uL (1.5-6.6); NEUTROPHILS % (AUTO) 74.6 %; PLT - PLATELET COUNT 342 10^3/uL (130-450); RED BLOOD COUNT 3.33 10^6/uL (4.20-5.40); RED CELL DISTRIBUTION WIDTH 14.6 % (12.0-15.0)
[2018-11-25 10:33] LABS: ALBUMIN 3.6 g/dL (3.2-5.5); ALBUMIN/GLOBULIN RATIO 0.9 (1.0-2.2); CALCIUM 9.2 mg/dL (8.5-10.3); TOTAL PROTEIN 7.6 g/dL (6.7-8.2)
== END 2018-11-25 09:50 | disposition home or self-care (01) ==
LOC: LAB 09:49
PROVIDERS: ATTEND Nurse Practitioner
DX: I34.0 Nonrheumatic mitral (valve) insufficiency (principal); I10 Essential (primary) hypertension; Z95.2 Presence of prosthetic heart valve
CPT/HCPCS: 36415; 80053; 83880; 85025

== ENCOUNTER 2018-12-11 18:32 | Inpatient (IN) | payer MEDICARE, OTHER ==
[2018-12-11 19:33] LABS: BASOPHILS # (AUTO) 0.1 10^3/uL (0.0-0.1); BASOPHILS % (AUTO) 0.4 %; EOSINOPHILS # (AUTO) 0.1 10^3/uL (0.0-0.7); EOSINOPHILS % (AUTO) 0.5 %; HGB - HEMOGLOBIN 10.1 g/dL (12.0-16.0); LYMPHOCYTES # (AUTO) 0.7 10^3/uL (1.5-3.5); LYMPHOCYTES % (AUTO) 4.1 %; MEAN CORPUSCULAR HEMOGLOBIN 28.1 pg (27.0-31.0); MEAN CORPUSCULAR HGB CONC 32.5 g/dL (32.0-36.0); MEAN CORPUSCULAR VOLUME 86.3 fL (81.0-99.0); MEAN PLATELET VOLUME 7.6 fL (7.9-10.8); MONOCYTES % (AUTO) 6.1 %; NEUTROPHILS # (AUTO) 14.7 10^3/uL (1.5-6.6); NEUTROPHILS % (AUTO) 88.9 %; PLT - PLATELET COUNT 333 10^3/uL (130-450); RED BLOOD COUNT 3.59 10^6/uL (4.20-5.40); RED CELL DISTRIBUTION WIDTH 14.6 % (12.0-15.0); WHITE BLOOD COUNT 16.6 x10^3/uL (4.8-10.8)
[2018-12-11 19:45] LABS: ALBUMIN 3.8 g/dL (3.2-5.5); ALBUMIN/GLOBULIN RATIO 0.9 (1.0-2.2); BILIRUBIN,TOTAL 0.5 mg/dL (0.2-1.0); CALCIUM 9.1 mg/dL (8.5-10.3); CREATININE 1.1 mg/dL (0.4-1.0); TOTAL PROTEIN 8.2 g/dL (6.7-8.2)
[2018-12-11 20:02] LABS: BILIRUBIN,URINE NEGATIVE (NEGATIVE); GLUCOSE, URINE (UA) NEGATIVE (NEGATIVE); KETONES,URINE (UA) NEGATIVE (NEGATIVE); LEUKOCYTE ESTERASE, URINE MODERATE (NEGATIVE); NITRITE,URINE NEGATIVE (NEGATIVE); OCCULT BLOOD,URINE SMALL (NEGATIVE); PROTEIN,URINE 30 mg/dL (NEGATIVE); UROBILINOGEN,URINE 0.2 (NORMAL) E.U./dL (NORMAL)
[2018-12-11 20:05] LABS: CLARITY,URINE CLOUDY (CLEAR)
[2018-12-11 20:21] LABS: BACTERIA,URINE Moderate /HPF (None Seen); SQUAMOUS EPITHELIAL CELL,UR RARE Squamous (<= Few)
--- NOTE | 2018-12-11 20:30 | ED Physician Documentation ---
History of Present Illness - Stated complaint Stated Complaint: HIGH BLOOD PRESSURE - Chief complaint Chief Complaint: General - History obtained from History obtained from: Patient, Family - History of Present Illness Timing: Today Pain level max: 6 Pain level now: 3 Improved by: rest Worsened by: movement, palpation Associated symptoms: cough, abd/flank pain - Additonal information Additional information: c/o abdominal pain, RLQ. says this started today, patient says more like one week. She had shaking chills and then sweats this afternoon and evening. She also c/o high BP (230 SBP tonight). 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 Review of Systems Constitutional: reports: Chills, Sweats, Other (uncertain if fever: chills/sweats, but did not take temperature at home) Eyes: reports: Reviewed and negative Ears: reports: Reviewed and negative Nose: reports: Reviewed and negative Throat: reports: Reviewed and negative Cardiac: reports: Pedal edema (RLE (post-op swelling)). denies: Chest pain / pressure, Palpitations Respiratory: reports: Cough. denies: Dyspnea GI: reports: Abdominal Pain. denies: Nausea, Vomiting, Constipation, Diarrhea : reports: Frequency. 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 11/20/18 Cholecalciferol (Vitamin D3) 2,000 unit PO DAILY #30 capsule 11/20/18 [Vitamin D] Clopidogrel [Plavix] 75 mg PO DAILY #30 tablet 11/20/18 Metoprolol Succinate [Toprol Xl] 25 mg PO BIDWM #60 tablet 12/24/18 Multivit,Calc,Mins/Folic Acid 200 mcg PO DAILY #30 tablet 11/20/18 [One-A-Day Proactive 65 Plus Tb] Rosuvastatin Calcium [Crestor] 10 mg PO DAILY #30 tablet 11/20/18 Spironolactone [Aldactone] 25 mg PO DAILY #30 tablet 11/20/18 Telmisartan 40 mg PO DAILY #30 tablet 11/20/18 Ubidecarenone [Coenzyme Q-10] 30 mg PO DAILY #30 capsule 11/20/18 guaiFENesin [Mucinex] 600 mg PO BID PRN #30 tablet 11/20/18 - Allergies Allergies/Adverse Reactions: Allergies Allergy/AdvReac Type Severity Reaction Status Date / Time Sulfa (Sulfonamide Allergy Intermediate Rash Verified 11/19/18 20:15 Antibiotics) celecoxib [From Celebrex] Allergy Unknown Verified 12/07/18 10:58 pollen extracts Allergy Unknown Verified 12/07/18 10:58 propoxyphene [From Darvon] Allergy Unknown Verified 12/07/18 10:58 hydrocodone AdvReac Nausea Verified 11/19/18 20:15 - Social History Does the pt smoke?: No Smoking Status: Never smoker Does the pt drink ETOH?: No Does the pt have substance abuse?: No - Immunizations Immunizations are current?: Yes PD ED PE NORMAL - Vitals Vital signs reviewed: Yes - General General: Alert and oriented X 3, No acute distress, Well developed/nourished - HEENT HEENT: PERRL, EOMI, Moist mucous membranes - Neck Neck: Supple, no meningeal sign - Cardiac Cardiac: RRR - Respiratory Respiratory: No respiratory distress, Clear bilaterally - Abdomen Abdomen: Soft, Non distended, Other (RLQ tenderness without rebound or guarding) - Back Back: No CVA TTP - Derm Derm: Normal color, Warm and dry, No rash - Neuro Neuro: Alert and oriented X 3 PD ED PE EXPANDED - Cardiac Cardiac: Murmur Present (3/6 MANDEEP cardiac base) - Extremities Extremities: Swelling (right knee and distal to right knee is swollen. The right knee is swollen with mild increased warmth (compared to other knee) but no erythema, fluctuance, or discharge) Results - Vitals Vitals: Vital Signs - 24 hr 12/11/18 12/11/1812/11/19 18:48 19:28 20:54 Temperature 36.9 C Heart Rate 78 85 Respiratory 18 16 Rate Blood Pressure 150/88 H 162/56 H O2 Saturation 100 98 12/11/18 22:34 Temperature Heart Rate 87 Respiratory 18 Rate Blood Pressure 167/63 H O2 Saturation 99 Oxygen O2 Source [With Activity] Room air O2 Source Room air - Labs Labs: Laboratory Tests 12/11/18 12/11/18 12/11/18 19:29 19:29 19:42 WBC 16.6 H RBC 3.59 L Hgb 10.1 L Hct 31.0 L MCV 86.3 MCH 28.1 MCHC 32.5 RDW 14.6 Plt Count 333 MPV 7.6 L Neut # (Auto) 14.7 H Lymph # (Auto) 0.7 L [place] # (Auto) 1.0 Eos # (Auto) 0.1 Baso # (Auto) 0.1 Absolute Nucleated RBC 0.00 Nucleated RBC % 0.0 Sodium 123 L Potassium 5.5 H Chloride 93 L Carbon Dioxide 20 L Anion Gap 10.0 BUN 31 H Creatinine 1.1 H Estimated GFR (MDRD) 47 L Glucose 121 H Calcium 9.1 Total Bilirubin 0.5 AST 29 ALT 30 Alkaline Phosphatase 142 H Total Protein 8.2 Albumin 3.8 Globulin 4.4 H Albumin/Globulin Ratio 0.9 L Lipase 37 Urine Color YELLOW Urine Clarity CLOUDY Urine pH 7.0 Ur Specific [place] 1.015 Urine Protein 30 H Urine Glucose (UA) NEGATIVE Urine Ketones NEGATIVE Urine Occult Blood SMALL H Urine Nitrite NEGATIVE Urine Bilirubin NEGATIVE Urine Urobilinogen 0.2 (NORMAL) Ur Leukocyte Esterase MODERATE H Urine RBC 6-10 H Urine WBC >25 H Ur Squamous Epith Cells RARE Squamous Urine Bacteria Moderate H Ur Microscopic Review INDICATED Urine Culture Comments INDICATED - Rads (name of study) CT A/P Radiology: Prelim report reviewed, See rad report PD MEDICAL DECISION MAKING - ED course Complexity details: reviewed old records, reviewed results, re-evaluated patient, considered differential, d/w patient, d/w family ED course: (+) UA (c/w UTI) with findings on CT c/w pyelonephritis. She has significant leukocytosis as well as hyponatremia, mild hyperkalemia. Departure - Departure Disposition: ED Place in Observation Clinical Impression: Pyelonephritis, Hyponatremia Condition: Good Discharge Date/Time: 12/12/18 00:01
[2018-12-11] MEDS ORDERED: cefTRIAXone 1 GM in SODIUM CHLORIDE 0.9% MINIBAG 100 ML IV STA (20:51)
[2018-12-11] MEDS ORDERED: IOVERSOL 320 100 ML VIAL IVP ONE ×2 (21:11→21:16)
--- NOTE | 2018-12-11 22:26 | CT Report ---
Reason: RLQ pain Procedure Date: 12/11/2018 Accession Number: [id number] / [id number] Procedure: CT - Abdomen/Pelvis W/ CPT Code: FULL RESULT: EXAM: CT ABDOMEN AND PELVIS WITH CONTRAST. EXAM DATE: 12/11/2018 09:53 PM. CLINICAL HISTORY: Right lower quadrant pain. COMPARISONS: Abdomen with 11/19/2018 11:19 PM. TECHNIQUE: Routine helical CT imaging was performed through the abdomen and pelvis. IV contrast: 100 mL Optiray 320. Enteric contrast: No. Reconstructions: Coronal and sagittal. In accordance with CT protocol optimization, one or more of the following dose reduction techniques were utilized for this exam: automated exposure control, adjustment of mA and/or KV based on patient size, or use of iterative reconstructive technique. FINDINGS: Lung Bases: No significant findings. Liver: Normal. No masses. Gallbladder/Bile Ducts: Unremarkable. Spleen: Normal. Pancreas: Stable pancreatic atrophy and duct dilatation. No evidence of acute pancreatitis. Adrenal Glands: Normal. Kidneys: Atrophic right kidney with decreased enhancement at the lower pole at the previously described enhancing nodule. There is perinephric fluid and inflammatory stranding. No hydronephrosis. Peritoneal Cavity/Bowel: Normal. No free fluid, free air or adenopathy. No masses or acute inflammatory process. The appendix is well visualized and normal. Pelvic Organs: Normal. The bladder and visualized pelvic organs are within normal limits. Vasculature: Atherosclerotic aortoiliac disease without evidence of aneurysm. Bones: Multilevel lumbar spine disk and right hip degenerative changes. Other: None. IMPRESSION: 1. Atrophic right kidney with new inflammatory changes at the lower pole of the kidney consistent with pyelonephritis. This corresponds to the previously described enhancing nodule and clinical and imaging follow-up recommended as underlying tumor not excluded. RADIA
[2018-12-11] MEDS ORDERED: MORPHINE 2 MG/ML CARPUJECT IVP PRN (23:24)
[2018-12-11] MEDS ORDERED: ZOLPIDEM 5 MG TABLET PO PRN (23:24)
[2018-12-11] MEDS ORDERED: guaiFENesin 600 MG TABLET PO PRN (23:28)
--- NOTE | 2018-12-12 00:06 | HISTORY & PHYSICAL EXAMINATION ---
Chief Complaint - Chief Complaint Chief Complaint: Elevated blood pressure and right flank pain History of Present Illness - Admitted From Admitted From:: Emergency department - History Obtained From Records Reviewed: Emergency department records as well as previous hospital stay discharge conner History obtained from: Patient and Dr. Olea, ED physician Exam Limitations: None - History of Present Illness HPI Comment/Other: This patient is an 88-year-old female with a past medical history significant for recent TIAs, status post right knee replacement 3 weeks ago, who was recently discharged a few days postoperatively due to shortness of breath found to have hyponatremia and fluid overload. She presents today because she was feeling unwell, including flank pain, subjective fevers, and generally just feeling unwell so she took her blood pressure and found it to be 220/100. She brought herself to the emergency room to have this further evaluated thinking that her major problem was the hypertension. However, an initial urinalysis suggested a UTI, and due to the flank pain, a CT of the abdomen and pelvis was ordered which does show evidence of hydronephrosis as well as a possible inflammatory Changes in the right renal pole that had previously been found to suggest a kidney mass. In fact she has an appointment tomorrow to have this reevaluated with a follow-up CT scan. Due to the patient's comorbid conditions, the findings on the CT scan, the elevated white blood cell count that she has which is 16, a sodium level of 123 and a potassium of 5.5, Dr. Olea thought it would be best to place this patien t under observation for IV antibiotic treatment. He started a single dose of IV Rocephin prior to transferring to the hospitalist service.. 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 - Substance History Use: Uses substance without health or social issues: NONE - POLST Patient has POLST: Yes POLST Status: Full Code Meds/Allgy - Home Medications Home Medications: Ambulatory Orders Medication Instructions Recorded Confirmed Aspirin [Adult Aspirin Regimen] 81 mg PO DAILY #30 tablet. 11/20/18 Cholecalciferol (Vitamin D3) 2,000 unit PO DAILY #30 capsule 11/20/18 [Vitamin D] Clopidogrel [Plavix] 75 mg PO DAILY #30 tablet 11/20/18 Metoprolol Succinate [Toprol Xl] 25 mg PO BIDWM #60 tablet 11/20/18 Multivit,Calc,Mins/Folic Acid 200 mcg PO DAILY #30 tablet 11/20/18 [One-A-Day Proactive 65 Plus Tb] Rosuvastatin Calcium [Crestor] 10 mg PO DAILY #30 tablet 11/20/18 Spironolactone [Aldactone] 25 mg PO DAILY #30 tablet 11/20/18 Telmisartan 40 mg PO DAILY #30 tablet 11/20/18 Ubidecarenone [Coenzyme Q-10] 30 mg PO DAILY #30 capsule 11/20/18 guaiFENesin [Mucinex] 600 mg PO BID PRN #30 tablet 11/20/18 - Allergies Allergies/Adverse Reactions: Allergies Allergy/AdvReac Type Severity Reaction Status Date / Time Sulfa (Sulfonamide Allergy Intermediate Rash Verified 11/19/18 20:15 Antibiotics) celecoxib [From Celebrex] Allergy Unknown Verified 12/07/18 10:58 pollen extracts Allergy Unknown Verified 12/07/18 10:58 propoxyphene [From Darvon] Allergy Unknown Verified 12/07/18 10:58 hydrocodone AdvReac Nausea Verified 11/19/18 20:15 Review of Systems - Constitutional Constitutional: reports: Fatigue, Fever, Chills, Malaise, Weakness - Cardiovascular Cariovascular: denies: Irregular heart rate, Palpitations, Chest pain - Respiratory Respiratory: reports: Cough. denies: SOB at rest, SOB with exertion - Gastrointestinal Gastrointestinal: reports: Nausea. denies: Abdominal pain, Abdominal distention, Constipation, Diarrhea, Vomiting - Genitourinary Genitourinary: reports: Flank pain. denies: Dysuria, Frequency - Musculoskeletal Musculoskeletal: reports: Back pain, Joint pain (Right knee is moderately painful but consistent with a well healing and progressing right knee replacement) - Neurological Neurological: reports: General weakness. denies: Focal weakness - All Other Systems All Other Systems: reports: Reviewed and negative Prior Level of Functionality: Relatively independent Exam - Vital Signs Reviewed Vital Signs: Yes Vital Signs: Vital Signs x48h Temp Pulse Resp BP Pulse Ox 12/11/18 23:27 75 16 140/66 H 100 12/11/18 22:34 87 18 167/63 H 99 12/11/18 20:54 85 16 162/56 H 98 12/11/18 19:28 100 12/11/18 18:48 36.9 C 78 18 150/88 H Vital Signs - 24 hr 12/11/18 12/11/18 12/11/18 18:48 19:28 20:54 Temperature 36.9 C Heart Rate 78 85 Respiratory 18 16 Rate Blood Pressure 150/88 H 162/56 H O2 Saturation 100 98 12/11/18 12/11/18 22:34 23:27 Temperature Heart Rate 87 75 Respiratory 18 16 Rate Blood Pressure 167/63 H 140/66 H O2 Saturation 99 100 Oxygen O2 Source [With Activity] Room air O2 Source Room air - Physical Exam General Appearance: positive: No acute distress Eyes Bilateral: positive: Normal inspection ENT: positive: ENT inspection nml Neck: positive: Nml inspection Respiratory: positive: Chest non-tender, No respiratory distress, Breath sounds nml Cardiovascular: positive: Regular rate & rhythm, No murmur, No gallop Peripheral Pulses: positive: 2+ Abdomen: positive: Non-tender, No organomegaly Back: positive: CVA tenderness (R). negative: CVA tenderness (L) Skin: positive: Color nml, Other (There is moderate circumferential edema of the right knee without erythema. It is mildly warm to touch) Extremities: positive: Joint swelling (See above, some knee swelling consistent with recent knee replacement surgery) Sepsis Event Note (H) - Evaluation Current Stage of Sepsis: Ruled out Conclusion/Plan - Problem List (1) Pyelonephritis Conclusion/Plan: Patient CT scan most consistent with acute pyelonephritis which is fortunate given that this may help clarify the previous concern for a possible renal mass. In any case, I agree with Dr. Olea management and placing the patient in observation under IV fluid management, possibly pending clinical improvement versus final report on the urine culture for sensitivities. In the meantime, patient will continue IV fluids for gentle hydration, Rocephin IV, and close mo nitoring. (2) Hyponatremia Conclusion/Plan: Reviewing her chart demonstrates that the hyponatremia is relatively constant. She will receive gentle IV fluid hydration to help correct this however this is not presenting with any significant complications and it is unlikely she will benefit from rapid correction of the sodium level. (3) Hyperkalemia Conclusion/Plan: Mild hyperkalemia of 5.5 without any EKG changes or symptoms. Will provide IV fluid hydration and recheck in the morning (4) H/O aortic valve replacement Conclusion/Plan: History of aortic valve replacement but based on her very recent echocardiogram done last month, she does not have evidence of left heart failure. She does have some pulmonary hypertension and this may explain some of the fluid overload she recently had. We will continue her home medications and watch closely for any further sequelae. (5) Cough Conclusion/Plan: She states that she has a cough and her review of systems however her lung exam is normal. She is recently been seen for this and had a chest x-ray and since then she states that has been improving and responding pretty well to ov [id number] Mucinex. Given that she has a relatively benign exam, normal oxygen saturations, and she will be on IV antibiotics in any case for the UTI I will hold off on further imaging and would recommend only if she has any clinical changes tomorrow to pursue further chest imaging. (6) Knee joint replacement status Conclusion/Plan: Knee replacement seems to be healing well. There is no evidence of joint infection or other compromise. Qualifiers: Laterality: right Qualified Code(s): Z96.651 - Presence of right artificial knee joint - Lab Results Lab results reviewed: Yes Fish Bones: 12/11/18 19:29 12/11/18 19:29 - Diagnostic Imaging Results Diagnostic Imaging Results: positive: Final report reviewed Core Measures - Anticipated LOS I expect patient to be DC'd or transferred within 96 hours.: Yes - DVT/VTE - Prophylaxis VTE/DVT Device ordered at admit?: Yes
[2018-12-12] MEDS: ACETAMINOPHEN 325 MG TABLET PO PRN ×3 (01:26→20:56)
[2018-12-12] MEDS: SODIUM CHLORIDE FLUSH 0.9% 10 ML SYRINGE IVP SCH ×4 (01:51→23:49)
[2018-12-12] MEDS: SODIUM CHLORIDE 0.9% 1,000 ML IV SCH ×2 (01:51→14:04)
[2018-12-12] MEDS: oxyCODONE 5 MG TABLET PO PRN ×2 (02:00→20:55)
[2018-12-12] MEDS ORDERED: IOVERSOL 320 100 ML VIAL IVP ONE (05:08)
[2018-12-12 05:36] LABS: HGB - HEMOGLOBIN 9.4 g/dL (12.0-16.0); MEAN CORPUSCULAR HGB CONC 32.5 g/dL (32.0-36.0); MEAN CORPUSCULAR VOLUME 86.1 fL (81.0-99.0); MEAN PLATELET VOLUME 7.5 fL (7.9-10.8); RED BLOOD COUNT 3.35 10^6/uL (4.20-5.40); RED CELL DISTRIBUTION WIDTH 14.3 % (12.0-15.0); WHITE BLOOD COUNT 17.7 x10^3/uL (4.8-10.8)
[2018-12-12 05:43] LABS: CALCIUM 8.7 mg/dL (8.5-10.3); CREATININE 1.3 mg/dL (0.4-1.0)
[2018-12-12] MEDS: CLOPIDOGREL 75 MG TABLET PO SCH (08:33)
[2018-12-12] MEDS: METOPROLOL SUCCINATE 25 MG TABLET PO SCH ×2 (08:33→18:21)
[2018-12-12] MEDS: ASPIRIN EC 81 MG TABLET PO SCH (08:33)
[2018-12-12] MEDS: CHOLECALCIFEROL 1,000 UNIT TABLET PO SCH (08:33)
[2018-12-12] MEDS: POLYETHYLENE GLYCOL 3350 17 GM PACKET PO SCH (08:33)
[2018-12-12] MEDS ORDERED: NON FORMULARY MED (Rosuvastatin Calcium [Crestor] 10 MG) PO SCH (09:00)
[2018-12-12] MEDS ORDERED: TELMISARTAN 40 MG PO SCH (09:00)
[2018-12-12] MEDS ORDERED: LOSARTAN 50 MG TABLET PO SCH (09:00)
[2018-12-12] MEDS ORDERED: SPIRONOLACTONE 25 MG TABLET PO SCH (09:00)
[2018-12-12] MEDS: ONDANSETRON 4 MG/2 ML VIAL IVP PRN ×2 (16:17→22:34)
[2018-12-12] MEDS ORDERED: hydrALAZINE INJ 20 MG/ML VIAL IVP PRN (20:34)
[2018-12-12] MEDS: cefTRIAXone 1 GM in SODIUM CHLORIDE 0.9% MINIBAG 100 ML IV SCH (20:38)
[2018-12-12] MEDS ORDERED: ATORVASTATIN 40 MG TABLET PO SCH (21:00)
[2018-12-12] MEDS: SODIUM CHLORIDE FLUSH 0.9% 10 ML SYRINGE IVP PRN (22:41)
[2018-12-13] MEDS: SODIUM CHLORIDE 0.9% 1,000 ML IV SCH (04:06)
[2018-12-13 05:04] LABS: HGB - HEMOGLOBIN 8.6 g/dL (12.0-16.0); MEAN CORPUSCULAR HEMOGLOBIN 28.2 pg (27.0-31.0); MEAN CORPUSCULAR VOLUME 85.4 fL (81.0-99.0); MEAN PLATELET VOLUME 7.7 fL (7.9-10.8); RED BLOOD COUNT 3.05 10^6/uL (4.20-5.40); RED CELL DISTRIBUTION WIDTH 14.9 % (12.0-15.0); WHITE BLOOD COUNT 13.5 x10^3/uL (4.8-10.8)
[2018-12-13 05:11] LABS: CREATININE 1.7 mg/dL (0.4-1.0)
[2018-12-13] MEDS: METOPROLOL SUCCINATE 25 MG TABLET PO SCH ×2 (10:01→16:28)
[2018-12-13] MEDS: CLOPIDOGREL 75 MG TABLET PO SCH (10:01)
[2018-12-13] MEDS: CHOLECALCIFEROL 1,000 UNIT TABLET PO SCH (10:01)
[2018-12-13] MEDS: ASPIRIN EC 81 MG TABLET PO SCH (10:02)
[2018-12-13] MEDS: ACETAMINOPHEN 325 MG TABLET PO PRN ×2 (10:02→21:56)
[2018-12-13] MEDS: POLYETHYLENE GLYCOL 3350 17 GM PACKET PO SCH (10:02)
[2018-12-13] MEDS: MULTIVITAMIN TABLET PO SCH (10:02)
[2018-12-13] MEDS: oxyCODONE 5 MG TABLET PO PRN ×2 (10:02→21:56)
[2018-12-13] MEDS: SODIUM CHLORIDE FLUSH 0.9% 10 ML SYRINGE IVP SCH ×2 (10:03→17:38)
--- NOTE | 2018-12-13 10:04 | PROVIDER PROGRESS NOTE ---
Subjective - Prog Note Date Prog Note Date: 12/13/18 Prog Note Time: 10:03 - Subjective Pt reports feeling: Improved Subjective: Georgina worries about staying in the hospital as she has a dermatology appointment on . Her was at the bedside and they were updated about her worsening kidney function. She denies new symptoms such as chest pain, nausea, vomiting, diarrhea, a rash, a new cough, or shortness of breath. Current Medications - Current Medications Current Medications: Active Medications: Acetaminophen (Tylenol) 650 mg PO Q4HR PRN Aspirin (Ecotrin) 81 mg PO DAILY ADAM Atorvastatin Calcium (Lipitor) 40 mg PO QPM ADAM Calcium Carbonate/Glycine (Tums) 500 mg PO TID PRN Cholecalciferol (Vitamin D3) 2,000 unit PO DAILY ADAM Clopidogrel Bisulfate (Plavix) 75 mg PO DAILY ADAM Guaifenesin (Mucinex) 600 mg PO BID PRN Hydralazine HCl (Apresoline Inj) 10 mg IVP Q4H PRN Ceftriaxone Sodium 1 gm/ (Sodium Chloride) 100 mls @ 200 mls/hr IV Q24H ADAM Sodium Bicarbonate 100 meq/ (Dextrose) 1,100 mls @ 100 mls/hr IV .Q11H ADAM Metoprolol Succinate (Toprol Xl) 25 mg PO BIDWM ADAM Morphine Sulfate (Morphine (Carpuject)) 2 mg IVP Q2HR PRN Multivitamins (Theragran) 1 tab PO DAILYWM ADAM Ondansetron HCl (Zofran Inj) 4 mg IVP Q6HR PRN Oxycodone HCl (Roxicodone) 5 mg PO Q4HR PRN Pantoprazole Sodium (Protonix) 40 mg PO DAILY PRN Polyethylene Glycol (Miralax) 17 gm PO DAILY ADAM Zolpidem Tartrate (Ambien) 5 mg PO QPM PRN HOME meds: Metoprolol Succinate 50 mg PO BID 12/12/18 Pantoprazole [Protonix] 40 mg PO DAILY PRN 12/12/18 Objective - Vital Signs/Intake & Output Reviewed Vital Signs: Yes Vital Signs: Vital Signs x48h Temp Pulse Resp BP Pulse Ox 12/13/18 07:45 37.1 C 80 18 134/95 H 98 12/13/18 06:49 37.0 C 80 18 170/65 H 98 Intake & Output: Intake & Output 12/10/18 12/11/18 12/12/18 12/13/18 23:59 23:59 23:59 23:59 Intake Total 100 1886.25 1660 Output Total 210 200 Balance 100 1676.25 1460 - Objective General Appearance: positive: No acute distress, Alert Eyes Bilateral: positive: PERRL Eyes: OU Conjunctivae pale ENT: positive: Pharynx nml, No signs of dehydration Neck: positive: Thyroid nml, No JVD, Trachea midline Respiratory: positive: Chest non-tender, No respiratory distress, Breath sounds nml Cardiovascular: positive: Regular rate & rhythm, No gallop, Systolic murmur Peripheral Pulses: 1+ Radial (R), 1+ Radial (L) Abdomen: positive: Non-tender, Nml bowel sounds Back: positive: Nml inspection Skin: positive: No rash, Warm, Dry Extremities: positive: Non-tender, Full ROM, Pedal edema, Joint swelling Neurologic/Psychiatric: positive: Oriented x3, CN's nml (2-12), Motor nml, Sensation nml, Weakness, Depressed mood/affect Reflexes: Bicep (R): 3+, Bicep (L): 3+ - Lab Results Fish Bones: 12/13/18 04:35 12/13/18 12:55 Other Labs: Lab Results x24hrs 12/13/18 12/13/18 12/13/18 Range/Units 04:35 04:35 04:35 WBC 13.5 H (4.8-10.8) x10^3/uL RBC 3.05 L (4.20-5.40) 10^6/uL Hgb 8.6 L (12.0-16.0) g/dL Hct 26.0 L (37.0-47.0) % MCV 85.4 (81.0-99.0) fL MCH 28.2 (27.0-31.0) pg MCHC 33.0 (32.0-36.0) g/dL RDW 14.9 (12.0-15.0) % Plt Count 230 (130-450) 10^3/uL MPV 7.7 L (7.9-10.8) fL Sodium 125 L (135-145) mmol/L Potassium 5.6 H (3.5-5.0) mmol/L Chloride 99 L (101-111) mmol/L Carbon Dioxide 17 L (21-32) mmol/L Anion Gap 9.0 (6-13) BUN 35 H (6-20) mg/dL Creatinine 1.7 H (0.4-1.0) mg/dL Estimated GFR (MDRD) 28 L (>89) Glucose 128 H (70-100) mg/dL Calcium 8.0 L (8.5-10.3) mg/dL B-Natriuretic Peptide 2100 H (5-100) pg/mL ABX Reporting Has patient been on IV antibiotics over the past 48 hours?: Yes Sepsis Event Note (H) - Evaluation Current Stage of Sepsis: Ruled out Assessment/Plan - Problem List (1) AIDA (acute kidney injury) Impression: The patient has a baseline creatinine of 1.0 and on admission it was 1.1, thought to be due to dehydration, now 1.8. A nephrology phone consult was attempted by leaving [address] Abreu, and by contacting [facility]. Nursing reported that the patient was retaining 400-500 ml of urine which may be the cause of this kidney injury. Since lunch she has had 1150 out, which is much improved from the low urine noted via pure wick and incontinence. She has been on 75ml of NS, that has now been on hold to give sodium bi-carb. Her appetite has improved and she is thought to drastically improve after this urinary retention has been solved. Plan: Continue indwelling miller to prevent kidney injury, monitor labs, and await a call back from nephrology. (2) Pyelonephritis Impression: An abdominal CT scan was performed on admission as she had complaints of right flank pain and fevers. It is most consistent with acute pyelonephritis, although it is recommended that she be watched as her underlying right kidney nodule is now obscured with the inflammation of the kidney. She has been on IV rocephin and this is the appropriate treatment based on urine sensitivities. Plan: Continue IV rocephin, await nephrology call back. Consider re-imaging if no improvement. (3) Hyponatremia Impression: Reviewing her chart demonstrates that the hyponatremia is relatively constant. She started out at 123, then she went to 125, now 123 again. She complains of a dry mouth on exam. Her imaging confirmed acute pyelonephritis with her right kidney being the main culprit. She has been receiving gentle IV fluid hydration and her diuretics are on hold. Plan: Continue IV hydration, sodium bi-carb x 2 amps, routine labs. Await urine sodium, osmolality, and a call back from nephrology. (4) Hyperkalemia Impression: The patient had ongoing hyperkalemia of 5.6 that came down to 5.0 with continued IV fluids. She has not had any EKG changes or symptoms. A call to nephrology has been made to Dr. Abreu and now to [facility] with no sucess in a call back. Since this is improved, I will defer until tomorrow. Plan: Continue IV hydration and routine labs. (5) Urinary retention Impression: The patient had some inaccurate I/O charting, so a bladder scan revealed urinary retention with values of 400-500 ml of urine. An indwelling miller has been placed and she has since had 1150 out. This may be a symptom of her acute infection, or an ongoing problem. Plan: Continue miller, routine labs. (6) Nodule of kidney Impression: The patient was first noted to have a 2 cm enhancing nodule of her right kidney during her last stay on 11/19/18. On this admission, inflammatory changes can be seen, which may be distorting the appearance of the previously appreciated nodule. She will still need follow up imaging. It is doubtful that this acute illness may be caused by the nodule. Plan: Recommend out patient follow up. 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 She is prescribed metoprolol, Telimisartan, and spironolactone at home. Diuretics are on hold during this acute illness. Plan: Continue to monitor daily weights, I/O and routine labs.
[2018-12-13 13:51] LABS: ALBUMIN 3.1 g/dL (3.2-5.5); ALBUMIN/GLOBULIN RATIO 0.8 (1.0-2.2); BILIRUBIN,TOTAL 0.5 mg/dL (0.2-1.0); CREATININE 1.8 mg/dL (0.4-1.0); MAGNESIUM 1.9 mg/dL (1.7-2.8)
[2018-12-13] MEDS ORDERED: PANTOPRAZOLE 40 MG TABLET PO PRN (14:45)
[2018-12-13] MEDS: SODIUM BICARBONATE 100 MEQ in DEXTROSE 5% 1,000 ML IV SCH (16:39)
[2018-12-13] MEDS: PANTOPRAZOLE 40 MG VIAL IVP SCH (19:38)
[2018-12-13] MEDS: hydrALAZINE INJ 20 MG/ML VIAL IVP SCH (20:22)
[2018-12-13] MEDS: cefTRIAXone 1 GM in SODIUM CHLORIDE 0.9% MINIBAG 100 ML IV SCH (20:25)
[2018-12-13] MEDS: ONDANSETRON 4 MG/2 ML VIAL IVP PRN (21:23)
[2018-12-13] MEDS: SODIUM CHLORIDE FLUSH 0.9% 10 ML SYRINGE IVP PRN (21:24)
[2018-12-14] MEDS ORDERED: BENZOCAINE/MENTHOL LOZENGE MM PRN (01:26)
[2018-12-14] MEDS: hydrALAZINE INJ 20 MG/ML VIAL IVP SCH ×3 (01:53→14:56)
[2018-12-14] MEDS: SODIUM CHLORIDE FLUSH 0.9% 10 ML SYRINGE IVP SCH ×4 (01:53→23:53)
[2018-12-14] MEDS: CALCIUM CARBONATE CHEW 500 MG TABLET PO PRN ×2 (02:01→10:15)
[2018-12-14] MEDS: SODIUM BICARBONATE 100 MEQ in DEXTROSE 5% 1,000 ML IV SCH (04:58)
[2018-12-14 05:42] LABS: HGB - HEMOGLOBIN 8.7 g/dL (12.0-16.0); MEAN CORPUSCULAR HEMOGLOBIN 28.6 pg (27.0-31.0); MEAN CORPUSCULAR HGB CONC 33.8 g/dL (32.0-36.0); MEAN CORPUSCULAR VOLUME 84.4 fL (81.0-99.0); MEAN PLATELET VOLUME 7.9 fL (7.9-10.8); RED BLOOD COUNT 3.06 10^6/uL (4.20-5.40); RED CELL DISTRIBUTION WIDTH 15.2 % (12.0-15.0)
[2018-12-14 05:44] LABS: CALCIUM 8.1 mg/dL (8.5-10.3); CREATININE 1.6 mg/dL (0.4-1.0)
[2018-12-14] MEDS ORDERED: METOPROLOL SUCCINATE 25 MG TABLET PO SCH ×2 (09:15→17:00)
--- NOTE | 2018-12-14 09:17 | PROVIDER PROGRESS NOTE ---
Subjective - Prog Note Date Prog Note Date: 12/14/18 Prog Note Time: 09:15 - Subjective Pt reports feeling: Improved Subjective: Georgina complains of a new bloody nose that started this morning. She also has ongoing poor appetite, coarse breathing, mild nausea, and is now constipated. She denies chest pain, chest pressure, a new rash, a productive cough, or increased shortness of breath. Current Medications - Current Medications Current Medications: Active Medications: Acetaminophen (Tylenol) 650 mg PO Q4HR PRN Aspirin (Ecotrin) 81 mg PO DAILY [facility] Calcium Carbonate/Glycine (Tums) 500 mg PO TID PRN Cholecalciferol (Vitamin D3) 2,000 unit PO DAILY [facility] Clopidogrel Bisulfate (Plavix) 75 mg PO DAILY [facility] Docusate Sodium (Colace 250mg Capsule) 250 - 500 mg PO DAILY [facility] Guaifenesin (Mucinex) 600 mg PO BID PRN Hydralazine HCl (Apresoline Inj) 10 mg IVP Q6H [facility] Ceftriaxone Sodium 1 gm/ (Sodium Chloride) 100 mls @ 200 mls/hr IV Q24H [facility] Metoprolol Succinate (Toprol Xl) 50 mg PO BIDWM ADAM Morphine Sulfate (Morphine (Carpuject)) 2 mg IVP Q2HR PRN Multivitamins (Theragran) 1 tab PO DAILYWM [facility] Ondansetron HCl (Zofran Inj) 4 mg IVP Q6HR PRN Oxycodone HCl (Roxicodone) 5 mg PO Q4HR PRN Oxymetazoline HCl (Afrin) 2 sprays AVEL BID ADAM Pantoprazole Sodium (Protonix) 20 mg IVP BID [facility] Polyethylene Glycol (Miralax) 17 gm PO DAILY [facility] Senna (Senokot) 8.6 - 17.2 mg PO DAILY [facility] Throat Lozenges (Cepacol) 1 lozenge MM Q2HR PRN Objective - Vital Signs/Intake & Output Reviewed Vital Signs: Yes Vital Signs: Vital Signs x48h Temp Pulse Resp BP BP Pulse Ox 12/14/18 07:45 36.7 C 86 16 155/57 H 95 12/14/18 03:17 157/56 H 12/14/18 02:25 144/68 H 12/14/18 02:18 139/59 H 12/14/18 02:15 156/63 H Intake & Output: Intake & Output 12/11/18 12/12/18 12/13/18 12/14/18 23:59 23:59 23:59 23:59 Intake Total 100 1886.25 4296.667 873.333 Output Total 210 1450 450 Balance 100 1676.25 2846.667 423.333 - Objective General Appearance: positive: No acute distress, Alert Eyes Bilateral: positive: PERRL ENT: positive: Pharynx nml, No signs of dehydration Neck: positive: Thyroid nml, No JVD, Trachea midline Respiratory: positive: Chest non-tender, No respiratory distress, Wheezes (expiratory wheezes.) Cardiovascular: positive: Regular rate & rhythm, Tachycardia, Systolic murmur, Decreased pulse(s) Peripheral Pulses: 1+ Radial (R), 1+ Radial (L) Abdomen: positive: Non-tender, Nml bowel sounds, Other (soft, rounded) Back: positive: Nml inspection Skin: positive: No rash, Warm, Dry, Pallor Extremities: positive: Non-tender, Pedal edema (trace), Joint swelling, Other (right knee healing well, no open skin post surgical knee) Neurologic/Psychiatric: positive: Oriented x3, CN's nml (2-12), Motor nml, Sensation nml, Mood/affect nml Reflexes: Bicep (R): 3+, Bicep (L): 3+ - Lab Results Fish Bones: 12/14/18 05:20 12/14/18 05:20 Other Labs: Lab Results x24hrs 12/14/18 12/14/18 12/14/18 Range/Units 05:20 05:20 05:20 WBC 9.0 (4.8-10.8) x10^3/uL RBC 3.06 L (4.20-5.40) 10^6/uL Hgb 8.7 L (12.0-16.0) g/dL Hct 25.8 L (37.0-47.0) % MCV 84.4 (81.0-99.0) fL MCH 28.6 (27.0-31.0) pg MCHC 33.8 (32.0-36.0) g/dL RDW 15.2 H (12.0-15.0) % Plt Count 210 (130-450) 10^3/uL MPV 7.9 (7.9-10.8) fL Sodium 125 L (135-145) mmol/L Potassium 5.0 (3.5-5.0) mmol/L Chloride 91 L (101-111) mmol/L Carbon Dioxide 20 L (21-32) mmol/L Anion Gap 14.0 H (6-13) BUN 37 H (6-20) mg/dL Creatinine 1.6 H (0.4-1.0) mg/dL Estimated GFR (MDRD) 31 L (>89) Glucose 161 H (70-100) mg/dL Calcium 8.1 L (8.5-10.3) mg/dL Magnesium (1.7-2.8) mg/dL Total Bilirubin (0.2-1.0) mg/dL AST (10-42) IU/L ALT (10-60) IU/L Alkaline Phosphatase (42-121) IU/L B-Natriuretic Peptide 2082 H (5-100) pg/mL Total Protein (6.7-8.2) g/dL Albumin (3.2-5.5) g/dL Globulin (2.1-4.2) g/dL Albumin/Globulin Ratio (1.0-2.2) TSH (0.34-5.60) uIU/mL Urine Sodium mmol/L 12/13/18 12/13/18 12/13/18 Range/Units 14:35 12:55 12:55 WBC (4.8-10.8) x10^3/uL RBC (4.20-5.40) 10^6/uL Hgb (12.0-16.0) g/dL Hct (37.0-47.0) % MCV (81.0-99.0) fL MCH (27.0-31.0) pg MCHC (32.0-36.0) g/dL RDW (12.0-15.0) % Plt Count (130-450) 10^3/uL MPV (7.9-10.8) fL Sodium 123 L (135-145) mmol/L Potassium 5.0 (3.5-5.0) mmol/L Chloride 95 L (101-111) mmol/L Carbon Dioxide 18 L (21-32) mmol/L Anion Gap 10.0 (6-13) BUN 36 H (6-20) mg/dL Creatinine 1.8 H (0.4-1.0) mg/dL Estimated GFR (MDRD) 27 L (>89) Glucose 162 H (70-100) mg/dL Calcium 8.0 L (8.5-10.3) mg/dL Magnesium 1.9 (1.7-2.8) mg/dL Total Bilirubin 0.5 (0.2-1.0) mg/dL AST 79 H (10-42) IU/L ALT 64 H (10-60) IU/L Alkaline Phosphatase 148 H (42-121) IU/L B-Natriuretic Peptide (5-100) pg/mL Total Protein 7.0 (6.7-8.2) g/dL Albumin 3.1 L (3.2-5.5) g/dL Globulin 3.9 (2.1-4.2) g/dL Albumin/Globulin Ratio 0.8 L (1.0-2.2) TSH 2.89 (0.34-5.60) uIU/mL Urine Sodium 29.0 mmol/L ABX Reporting Has patient been on IV antibiotics over the past 48 hours?: No Sepsis Event Note (H) - Evaluation Current Stage of Sepsis: Ruled out Assessment/Plan - Problem List (1) AIDA (acute kidney injury) Impression: The patient has a baseline creatinine of 1.0 and on admission that became worse with a creatinine of 1.8. Today this has improved at 1.6. A nephrology phone consult with Dr. Abreu occurred on 12/13/18 who suggested maintaining the indwelling miller, gentle IV fluids, and keep holding diuretics. Her appetite has NOT improved, although states she generally feels improved. Plan: Continue indwelling miller to prevent kidney injury, monitor labs and hold IV fluids to day given respiratory congestion. (2) Pyelonephritis Impression: An abdominal CT scan was performed on admission as she had complaints of right flank pain and fevers. It is most consistent with acute pyelonephritis, although it is recommended that she be watched as her underlying right kidney nodule is now obscured with the inflammation of the kidney. She has been on IV rocephin and this is the appropriate treatment based on urine sensitivities. Plan: Continue IV rocephin, hold IV fluids today, maintain indwelling miller. (3) Hyponatremia Impression: Reviewing her chart demonstrates that the hyponatremia is relatively constant. Serum sodium today is 125, stable. Her imaging confirmed acute pyelonephritis with her right kidney being the main culprit. She now has no fluids running as she has become congested with expiratory wheezing. Dr. Abreu was contacted yesterday and noted that this hyponatremia is likely a long-standing problem and may reflect fluid status. Plan: Routine labs. Contact nephrology if further problems arise. (4) Hyperkalemia Impression: The patient had ongoing hyperkalemia of 5.6 that came down to 5.0. She has not had any EKG changes or symptoms. Plan: Routine labs and hold spironolactone. (5) Urinary retention Impression: The patient had high bladder scan residuals, so an indwelling miller was placed yesterday. This may be a symptom of her acute infection, or an ongoing problem. Plan: Continue miller, routine labs. (6) Nodule of kidney Impression: The patient was first noted to have a 2 cm enhancing nodule of her right kidney during her last stay on 11/19/18. On this admission, inflammatory changes can be seen, which may be distorting the appearance of the previously appreciated nodule. She will still need follow up imaging. It is doubtful that this acute illness may be caused by the nodule. Plan: Recommend out patient follow up. 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 She is prescribed metoprolol, Telimisartan, and spironolactone at home. Spironolactone and the ARB remain on hold during this acute illness and given her AIDA. Today, since being on fluids since admission, her exam reveals her to be slightly fluid overloaded. Her breathing is more labored, she has expiratory wheezing, and she may have increased abdominal edema. Plan: Continue to monitor daily weights, I/O, apply RENETTA hose, and routine labs. (8) Epistaxis Impression: The patient has a mild bloody nose as blood was noted on her towel. She states that this happens sometimes and takes daily Plavix. Plan: Afrin spray x6 doses and 3 days. Monitor for bleeding. (9) Left hip pain Impression: The patient notes left hip discomfort since the time of admission. She has previously had a Left TKA, but this was several years ago. She has had urinary retention and today complains of constipation, so this may be exacerbated by the extra bowel contents and a recent full bladder. She has been using a K-pad, wit h some relief. Plan: PT to evaluate, encourage ambulation. (10) Constipation Impression: The patient has been in bed for the majority of her stay, and today this is her primary complaint. She has been taking Miralax daily, with no results. On exam her abdomen is rounded, without masses and soft. She has good bowel tones. Plan: Encourage ambulation, give lactulose, or prune juice. Qualifiers: Constipation type: slow transit constipation Qualified Code(s): K59.01 - Slow transit constipation
[2018-12-14] MEDS: CHOLECALCIFEROL 1,000 UNIT TABLET PO SCH (10:14)
[2018-12-14] MEDS: POLYETHYLENE GLYCOL 3350 17 GM PACKET PO SCH (10:15)
[2018-12-14] MEDS: ASPIRIN EC 81 MG TABLET PO SCH (10:15)
[2018-12-14] MEDS: SENNA 8.6 MG TABLET PO SCH (10:15)
[2018-12-14] MEDS: MULTIVITAMIN TABLET PO SCH (10:16)
[2018-12-14] MEDS: OXYMETAZOLINE NASAL SPRAY NAS SCH ×2 (10:16→20:48)
[2018-12-14] MEDS: CLOPIDOGREL 75 MG TABLET PO SCH (10:16)
[2018-12-14] MEDS: PANTOPRAZOLE 40 MG VIAL IVP SCH (10:16)
[2018-12-14] MEDS: SODIUM CHLORIDE FLUSH 0.9% 10 ML SYRINGE IVP PRN ×4 (10:16→14:24)
[2018-12-14] MEDS: DOCUSATE SODIUM 250 MG CAPSULE PO SCH (10:16)
[2018-12-14] MEDS: ONDANSETRON 4 MG/2 ML VIAL IVP PRN (14:23)
[2018-12-14] MEDS: hydrALAZINE 10 MG TABLET PO SCH (17:11)
[2018-12-14] MEDS: METOPROLOL SUCCINATE 50 MG TABLET PO SCH (17:11)
[2018-12-14] MEDS: ACETAMINOPHEN 325 MG TABLET PO PRN (17:15)
[2018-12-14] MEDS: cefTRIAXone 1 GM in SODIUM CHLORIDE 0.9% MINIBAG 100 ML IV SCH (20:48)
[2018-12-14] MEDS ORDERED: SODIUM CHLORIDE FLUSH 0.9% 10 ML SYRINGE ONE (20:48)
[2018-12-15] MEDS: SODIUM CHLORIDE FLUSH 0.9% 10 ML SYRINGE IVP PRN ×2 (00:03→00:04)
[2018-12-15 05:18] LABS: BASOPHILS # (AUTO) 0.1 10^3/uL (0.0-0.1); BASOPHILS % (AUTO) 0.6 %; EOSINOPHILS # (AUTO) 0.2 10^3/uL (0.0-0.7); EOSINOPHILS % (AUTO) 2.2 %; HGB - HEMOGLOBIN 8.3 g/dL (12.0-16.0); LYMPHOCYTES # (AUTO) 1.3 10^3/uL (1.5-3.5); LYMPHOCYTES % (AUTO) 15.7 %; MEAN CORPUSCULAR HGB CONC 33.1 g/dL (32.0-36.0); MEAN CORPUSCULAR VOLUME 84.9 fL (81.0-99.0); MEAN PLATELET VOLUME 7.7 fL (7.9-10.8); MONOCYTES # (AUTO) 1.1 10^3/uL (0.0-1.0); MONOCYTES % (AUTO) 12.9 %; NEUTROPHILS # (AUTO) 5.7 10^3/uL (1.5-6.6); NEUTROPHILS % (AUTO) 68.6 %; PLT - PLATELET COUNT 235 10^3/uL (130-450); RED BLOOD COUNT 2.97 10^6/uL (4.20-5.40); RED CELL DISTRIBUTION WIDTH 15.1 % (12.0-15.0); WHITE BLOOD COUNT 8.3 x10^3/uL (4.8-10.8)
[2018-12-15 05:32] LABS: ALBUMIN 2.8 g/dL (3.2-5.5); ALBUMIN/GLOBULIN RATIO 0.8 (1.0-2.2); BILIRUBIN,TOTAL 0.6 mg/dL (0.2-1.0); CALCIUM 8.6 mg/dL (8.5-10.3); CREATININE 1.3 mg/dL (0.4-1.0); TOTAL PROTEIN 6.4 g/dL (6.7-8.2)
[2018-12-15] MEDS ORDERED: PANTOPRAZOLE 40 MG TABLET PO SCH (07:00)
[2018-12-15] MEDS: POLYETHYLENE GLYCOL 3350 17 GM PACKET PO SCH (08:21)
[2018-12-15] MEDS: SODIUM CHLORIDE FLUSH 0.9% 10 ML SYRINGE IVP SCH (08:21)
[2018-12-15] MEDS: SENNA 8.6 MG TABLET PO SCH (08:21)
[2018-12-15] MEDS: DOCUSATE SODIUM 250 MG CAPSULE PO SCH (08:21)
[2018-12-15] MEDS: hydrALAZINE 10 MG TABLET PO SCH (08:22)
[2018-12-15] MEDS: MULTIVITAMIN TABLET PO SCH (08:22)
[2018-12-15] MEDS: METOPROLOL SUCCINATE 50 MG TABLET PO SCH (08:22)
[2018-12-15] MEDS: ASPIRIN EC 81 MG TABLET PO SCH (08:22)
[2018-12-15] MEDS: CHOLECALCIFEROL 1,000 UNIT TABLET PO SCH (08:22)
[2018-12-15] MEDS: CLOPIDOGREL 75 MG TABLET PO SCH (08:22)
[2018-12-15] MEDS ORDERED: SPIRONOLACTONE 25 MG TABLET PO SCH (09:00)
--- NOTE | 2018-12-15 09:22 | DISCHARGE SUMMARY ---
Discharge Summary Admit Date: 12/11/18 Discharge Date: 12/15/18 Discharging Provider: MELANY Piña Primary Care Provider: Margret Christianson Code Status: Attempt Resuscitation Condition at Discharge: Good Discharge Disposition: Home, Self Care - DIAGNOSES Admission Diagnoses: Tubulo-interstitial nephritis, not spcf as acute or chronic (N12) Hypo-osmolality and hyponatremia (E87.1) Hyperkalemia (E87.5) Presence of prosthetic heart valve (Z95.2) Cough (R05) Presence of unspecified artificial knee joint (Z96.659) Discharge Diagnoses with Status of Each Condition: Pyelonephritis (N12) improved, now has clear appearing urine. Final urine culture sensitivities show several antibiotic choices, continue Augmentin at home x10 days. AIDA (acute kidney injury) (N17.9) improved, nearly at baseline. 1.3 on discharge. Will need labs on Tuesday12/18/18 to ensure a resolution of this condition. Indwelling miller will continue at home. Hyponatremia (E87.1) chronic, likely related to fluid status. Urinary retention (R33.9) now with an indwelling miller, will need urology follow up. Indwelling Miller catheter present (Z96.0) due to ongoing urinary retention with one failed voiding trial. Hyperkalemia (E87.5) resolved, restarted Spironolactone at 1/2 her usual dose. (12.5 mg daily) Nodule of kidney (N28.89) chronic, will still need further follow up since the inflammatory residual caused by this pyelonephritis likely obscured an accurate follow up imaging. Diastolic CHF with preserved left ventricular function, NYHA class 2 (I50.30) chronic, signs of fluid overload were seen as she had increased BLE/abdominal edema, expiratory wheezing and increased shortness of breath-all mild. Spironolactone resumed at 1/2 her home dose. Left hip pain (M25.552) chronic, likely due to prolonged bed rest related to her acute illness, now resolved. Constipation (K59.00) chronic, encouraged regular bowel patterns. Epistaxis (R04.0) resolved, continued on her home Plavix while inpatient. Dementia (F03.90) chronic, this was apparent in her ongoing short term memory loss and her delayed comprehension, stable. - HPI History of Present Illness: HPI per Dr. Oakes: This patient is an 88-year-old female with a past medical history significant for recent TIAs, status post right knee replacement 3 weeks ago, who was recently discharged a few days postoperatively due to shortness of breath found to have hyponatremia and fluid overload. She presents today because she was feeling unwell, including flank pain, subjective fevers, and generally just feeling unwell so she took her blood pressure and found it to be 220/100. She brought herself to the emergency room to have this further evaluated thinking that her major problem was the hypertension. However, an initial urinalysis sug gested a UTI, and due to the flank pain, a CT of the abdomen and pelvis was ordered which does show evidence of hydronephrosis as well as a possible inflammatory Changes in the right renal pole that had previously been found to suggest a kidney mass. In fact she has an appointment tomorrow to have this reevaluated with a follow-up CT scan. Due to the patient's comorbid conditions, the findings on the CT scan, the elevated white blood cell count that she has which is 16, a sodium level of 123 and a potassium of 5.5, Dr. Olea thought it would be best to place this patient under observation for IV antibiotic treatment. He started a single dose of IV Rocephin prior to transferring to the hospitalist service.. - CONSULTS | PROCEDURES Consultations: Dr. Abreu-nephrology - HOSPITAL COURSE Hospital Course: The patient was treated for her pyelonephritis with IV Rocephin, and was given Augmentin. By the next morning after her admission, her creatinine began to become worse at 1.3 (baseline creatinine was 1.1), reaching a max of 1.8, despite gentle IV fluids, and holding her telmisartan and spironolactone from home. Dr. Abreu with [facility] was called and he recommended exactly the course that was taken and was encouraged that she would continue to improve as long as urinary retention was treated with an indwelling miller. On the day of discharge her creatinine was down to 1.3, and she showed signs of liver congestion similar to her last admission, so she was started back on Spironolactone 12.5 mg daily. She failed a voiding trial with a post void residual ~250 ml after efforts on the toilet in which she felt as if she "emptied out". She was hypertensive during her stay, so was started on hydralazine as this was not nephrotoxic. I contacted her PCP, Eula Christianson and spoke with her directly to alert her of the medication changes, the need for follow up labs and the fact that she continued to retain urine and the miller was re-inserted. I explained/reviewed all the above with the patient and her , including giving them an updated med list. Nursing instructed both the patient and her , Caden on the proper home miller care. The patient was medically stable and anxious to return home. She had moved her bowels, was breathing well, did not require oxygen and new prescriptions were sent to the pharmacy. - ALLERGIES Allergies/Adverse Reactions: Allergies Allergy/AdvReac Type Severity Reaction Status Date / Time Sulfa (Sulfonamide Allergy Intermediate Rash Verified 11/19/18 20:15 Antibiotics) celecoxib [From Celebrex] Allergy Unknown Verified 12/07/18 10:58 pollen extracts Allergy Unknown Verified 12/07/18 10:58 propoxyphene [From Darvon] Allergy Unknown Verified 12/07/18 10:58 hydrocodone AdvReac Nausea Verified 11/19/18 20:15 - MEDICATIONS Home Medications: Ambulatory Orders Medication Instructions Recorded Confirmed Aspirin [Adult Aspirin Regimen] 81 mg PO DAILY #30 tablet. 11/20/18 12/12/18 Cholecalciferol (Vitamin D3) 2,000 unit PO DAILY #30 capsule 11/20/18 12/12/18 [Vitamin D3] Clopidogrel [Plavix] 75 mg PO DAILY #30 tablet 11/20/18 12/12/18 Multivit,Calc,Mins/Folic Acid 200 mcg PO DAILY #30 tablet 11/20/18 12/12/18 [One-A-Day Proactive 65 Plus Tb] Rosuvastatin Calcium [Crestor] 10 mg PO DAILY #30 tablet 11/20/18 12/12/18 Ubidecarenone [Coenzyme Q-10] 30 mg PO DAILY #30 capsule 11/20/18 12/12/18 guaiFENesin [Mucinex] 600 mg PO BID PRN #30 tablet 11/20/18 12/12/18 Pantoprazole [Protonix] 40 mg PO DAILY PRN 12/12/18 12/12/18 Amox/Clav 875/125 [Augmentin] 1 each PO Q12H #20 tablet 12/15/18 Metoprolol Succinate 25 mg PO BID #60 12/15/18 12/12/18 Saccharomyces Boulardii [Florastor] 250 mg PO BIDWM #60 capsule 12/15/18 Spironolactone [Aldactone] 12.5 mg PO DAILY #15 tablet 12/15/18 hydrALAZINE [Apresoline] 10 mg PO TIDWM #90 tablet 12/15/18 - PHYSICAL EXAM AT DISCHARGE General Appearance: positive: No acute distress, Alert Eyes Bilateral: positive: PERRL ENT: positive: Pharynx nml, No signs of dehydration Neck: positive: Thyroid nml, No JVD, Trachea midline Respiratory: positive: Chest non-tender, Breath sounds nml Cardiovascular: positive: Regular rate & rhythm, Systolic murmur Peripheral Pulses: positive: 1+ Abdomen: positive: Non-tender, Nml bowel sounds, Other (rounded, soft) Back: positive: Nml inspection Skin: positive: No rash, Warm, Dry, Pallor Extremities: positive: Non-tender, Pedal edema, Joint swelling Neurologic/Psychiatric: positive: Oriented x3, CN's nml (2-12), Motor nml, Sensation nml, Mood/affect nml Reflexes: Bicep (R): 3+, Bicep (L): 3+ - LABS Result Diagrams: 12/15/18 05:00 12/15/18 05:00 - DIAGNOSTIC IMAGING Diagnostic Imaging Results: Final report reviewed Diagnostic Imaging Results Comments: EXAM: CT ABDOMEN AND PELVIS WITH CONTRAST EXAM DATE: 12/11/2018 09:53 PM. IMPRESSION: 1. Atrophic right kidney with new inflammatory changes at the lower pole of the kidney consistent with pyelonephritis. This corresponds to the previously described enhancing nodule and clinical and imaging follow-up recommended as underlying tumor not excluded. - SEPSIS Current Stage of Sepsis: Ruled out - FOLLOW UP Follow Up: Disposition: Home Condition: Good Prescriptions: Amox/Clav 875/125 [Augmentin] 1 each PO Q12H #20 tablet hydrALAZINE [Apresoline] 10 mg PO TIDWM #90 tablet Saccharomyces Boulardii [Florastor] 250 mg PO BIDWM #60 capsule Spironolactone [Aldactone] 12.5 mg PO DAILY #15 tablet Additional Instructions or Follow Up instructions: You were admitted with a kidney infection based on imaging, your reports of fevers, chills, right flank/back pain and urinary symptoms. A urine sample was sent to the lab and was found to be positive for e. coli, which is a very common culprit. There were thankfully several sensitive antibiotics to continue treatment at home. Please continue Amoxicillin/clavulanate (Augmentin) for the next 10 days. This was chosen as it has the lease kidney toxic effects. Please continue with a probiotic for about a month to help replenish healthy gut bacteria. You were found to be having kidney dysfunction (failure) determined by labs. You were given IV fluids and your home Telmisartan, and Spironolactone was placed on hold. Dr. Abreu, Nephrology was contacted as to the best way to ensure a resolution of your kidney failure. He suggested to keep the bladder decompressed, keep up with gentle IV fluids, and watch how you are doing physically. You were found to have urinary retention, so an indwelling miller was inserted. You underwent a voiding trial, and were found to be retaining urine. A new catheter was placed and you are set up to see Dr. Christianson on Tuesday. Also, please make sure your bowels are regular and do not become constipated since this can cause bladder dysfunction. Your kidney labs are likely to improve after gentle IV fluids and holding some of your home medications. To control your blood pressure you were given a medication called Hydralazine, which has no effect on your kidneys and works by dilating your vessels to lower your blood pressure. Since you have had this injury to your kidneys, please STOP: Telmisartan and only take 1/2 of the Spironolactone. All other medications have been left the same. Please see your PCP for a blood draw on Tuesday12/18/18 @ 3pm- [address]. I spoke to Dr. Christianson and she is expecting you. You may need a urology follow up. Please report back to the ED if you have recurrent right back pain, or have more fevers or chills. I have given you a new medication list with the above changes. - TIME SPENT Time Spent in Discharge (Minutes): 50
[2018-12-15] MEDS: OXYMETAZOLINE NASAL SPRAY NAS SCH (10:10)
[2018-12-15 13:21] VITALS: BP 176/75
== END 2018-12-15 14:15 | disposition home or self-care (01) | DRG 690 ==
LOC: ED 18:32 → OBS 23:25 → OBSVTOIN 12-12 10:14 → MS2 12-12 14:27
PROVIDERS: ADMIT Nurse Practitioner; ATTEND Nurse Practitioner
DX: N12 Tubulo-interstitial nephritis, not specified as acute or chronic (principal); I10 Essential (primary) hypertension; E78.00 Pure hypercholesterolemia, unspecified; R01.1 Cardiac murmur, unspecified; E87.1 Hypo-osmolality and hyponatremia; I50.32 Chronic diastolic (congestive) heart failure; K21.9 Gastro-esophageal reflux disease without esophagitis; M19.90 Unspecified osteoarthritis, unspecified site; Z96.651 Presence of right artificial knee joint; Z96.649 Presence of unspecified artificial hip joint; Z90.710 Acquired absence of both cervix and uterus; Z90.10 Acquired absence of unspecified breast and nipple; E87.5 Hyperkalemia; N13.30 Unspecified hydronephrosis; Z88.2 Allergy status to sulfonamides; N17.9 Acute kidney failure, unspecified; Z79.82 Long term (current) use of aspirin; R33.9 Retention of urine, unspecified; I11.0 Hypertensive heart disease with heart failure; K59.01 Slow transit constipation; M25.552 Pain in left hip; N28.89 Other specified disorders of kidney and ureter; R04.0 Epistaxis; Z86.73 Personal history of transient ischemic attack (TIA), and cerebral infarction without residual deficits; Z95.2 Presence of prosthetic heart valve
CPT/HCPCS: 36415; 74177; 80048; 80053; 81001; 81003; 83690; 83735; 83880; 83930; 83935; 84300; 84443; 85025; 85027; 87077; 87086; 87181; 96365; 99284

== ENCOUNTER 2018-12-25 08:00 | Outpatient (CLI) | payer MEDICARE, OTHER ==
[2018-12-25 18:57] LABS: BASOPHILS # (AUTO) 0.1 10^3/uL (0.0-0.1); BASOPHILS % (AUTO) 0.9 %; EOSINOPHILS # (AUTO) 0.1 10^3/uL (0.0-0.7); EOSINOPHILS % (AUTO) 1.3 %; HGB - HEMOGLOBIN 9.5 g/dL (12.0-16.0); LYMPHOCYTES # (AUTO) 1.1 10^3/uL (1.5-3.5); LYMPHOCYTES % (AUTO) 13.9 %; MEAN CORPUSCULAR HEMOGLOBIN 28.1 pg (27.0-31.0); MEAN CORPUSCULAR HGB CONC 32.3 g/dL (32.0-36.0); MEAN PLATELET VOLUME 7.7 fL (7.9-10.8); MONOCYTES # (AUTO) 0.8 10^3/uL (0.0-1.0); MONOCYTES % (AUTO) 9.7 %; NEUTROPHILS # (AUTO) 6.1 10^3/uL (1.5-6.6); NEUTROPHILS % (AUTO) 74.2 %; PLT - PLATELET COUNT 362 10^3/uL (130-450); RED BLOOD COUNT 3.37 10^6/uL (4.20-5.40); RED CELL DISTRIBUTION WIDTH 16.1 % (12.0-15.0); WHITE BLOOD COUNT 8.2 x10^3/uL (4.8-10.8)
[2018-12-25 19:24] LABS: ALBUMIN 3.4 g/dL (3.2-5.5); ALBUMIN/GLOBULIN RATIO 0.9 (1.0-2.2); BILIRUBIN,TOTAL 0.7 mg/dL (0.2-1.0); CALCIUM 9.1 mg/dL (8.5-10.3); CREATININE 0.8 mg/dL (0.4-1.0); TOTAL PROTEIN 7.4 g/dL (6.7-8.2)
[2018-12-25 19:42] LABS: FERRITIN 137.9 ng/mL (11.0-306.8)
== END 2018-12-25 23:59 | disposition home or self-care (01) ==
LOC: LAB.WCP 08:00
PROVIDERS: ATTEND Family Medicine
DX: E87.1 Hypo-osmolality and hyponatremia (principal); D64.9 Anemia, unspecified
CPT/HCPCS: 36415; 80053; 82607; 82728; 83930; 84300; 85025

== ENCOUNTER 2019-01-07 18:01 | Outpatient (CLI) | payer MEDICARE, OTHER | END 2019-01-07 18:02 | disposition critical access hospital (66) | LOC: EMS 18:01 | PROVIDERS: ATTEND Surgery | DX: R47.89 Other speech disturbances (principal) | CPT/HCPCS: A0425; A0429 ==

== ENCOUNTER 2019-01-07 18:15 | Inpatient (IN) | payer MEDICARE, OTHER ==
[2019-01-07] MEDS ORDERED: niCARdipine 20 MG/200 ML 20 MG/200 ML BAG IV STA (18:32)
--- NOTE | 2019-01-07 18:33 | ED Physician Documentation ---
PD HPI FOCAL NEURO - Stated complaint Stated Complaint: SPEECH DIFFICULTY - HZ OF TIA'S - Chief complaint Chief Complaint: Neuro - History obtained from History obtained from: Patient - History of Present Illness Timing - onset: Other (This is an 88-year-old woman with history of hypertension and TIA is on both aspirin and Plavix whose had episodic garbled speech today without headache but some nausea. She is also noted to have very high blood pressures. She denies any other new weakness, numbness, or tingling. No chest pain.) Review of Systems Ten Systems: 10 systems reviewed and negative Constitutional: reports: Reviewed and negative Throat: reports: Reviewed and negative Cardiac: reports: Reviewed and negative PD PAST MEDICAL HISTORY - Past Medical History Past Medical History: Yes Cardiovascular: Hypertension, High cholesterol, Murmur, Valve disorder Respiratory: Other Neuro: TIA Endocrine/Autoimmune: None GI: None, GERD : None HEENT: Dental implants Psych: None Musculoskeletal: Osteoarthritis Derm: None - Past Surgical History Past Surgical History: Yes Ortho: Hip replacement, Knee replacement /[employer]: Hysterectomy, Mastectomy Cardiovascular: Valve replacement HEENT: Cataracts, Tonsil/Adenoidectomy Derm: Skin grafts, Skin cancer surgery - Present Medications Home Medications: Ambulatory Orders Medication Instructions Recorded Confirmed RX: Aspirin [Adult Aspirin Regimen] 81 mg PO DAILY #30 tablet. 11/20/18 01/07/19 RX: Multivit,Calc,Mins/Folic Acid 200 mcg PO DAILY #30 tablet 11/20/18 01/07/19 [One-A-Day Proactive 65 Plus Tb] RX: Rosuvastatin Calcium [Crestor] 10 mg PO DAILY #30 tablet 11/20/18 01/07/19 RX: Pantoprazole [Protonix] 40 mg PO DAILY PRN 12/12/18 01/07/19 RX: Metoprolol Succinate 25 mg PO BID #60 12/15/18 01/07/19 RX: Spironolactone [Aldactone] 12.5 mg PO DAILY #15 tablet 12/15/18 01/07/19 Saccharomyces Boulardii [Florastor] 250 mg PO BIDWM #60 capsule 12/15/18 01/07/19 RX: Telmisartan 20 mg PO DAILY 01/07/19 01/07/19 RX: hydrALAZINE [Apresoline] 20 mg PO TIDWM 01/07/19 01/07/19 - Allergies Allergies/Adverse Reactions: Allergies Allergy/AdvReac Type Severity Reaction Status Date / Time Sulfa (Sulfonamide Allergy Intermediate Rash Verified 01/07/19 20:11 Antibiotics) celecoxib [From Celebrex] Allergy Unknown Verified 01/07/19 20:11 pollen extracts Allergy Unknown Verified 01/07/19 20:11 propoxyphene [From Darvon] Allergy Unknown Verified 01/07/19 20:11 hydrocodone AdvReac Nausea Verified 01/07/19 20:11 - Social History Does the pt smoke?: No Smoking Status: Never smoker Does the pt drink ETOH?: No Does the pt have substance abuse?: No - Immunizations Immunizations are current?: Yes - POLST Patient has POLST: Yes POLST Status: Full Code PD ED PE NORMAL - Vitals Vital signs reviewed: Yes - General General: Alert and oriented X 3, No acute distress - HEENT HEENT: PERRL, EOMI - Neck Neck: Supple, no meningeal sign, No bony TTP - Cardiac Cardiac: RRR, No murmur - Respiratory Respiratory: No respiratory distress, Clear bilaterally - Abdomen Abdomen: Normal bowel sounds, Soft, Non tender - Back Back: No CVA TTP, No spinal TTP - Derm Derm: Normal color, Warm and dry - Extremities Extremities: No edema, No calf tenderness / cord - Neuro Neuro: Alert and oriented X 3, machine hand 2-12 intact, Normal speech Eye Opening: Spontaneous Motor: Obeys Commands Verbal: Oriented GCS Score: 15 NIHSS - Time Time: 18:30 - Level of Consciousness Level of consciousness: (0) Alert, Keenly responsive LOC Questions: (0) Answers both Q's correct LOC Commands: (0) Performs both correctly - Gaze Best Gaze: (0) Normal - Visual Visual: (0) No loss - Facial Palsy Facial Palsy: (0) Normal, symmetrical movement - Motor Arms (both separate) Motor Arm (right): (0) No drift Motor Arm (left): (0) No drift - Motor Legs (both separate) Motor Leg (right): (0) No drift Motor Leg (left): (0) No drift - Limb Ataxia Limb Ataxia: (0) Absent - Sensory Sensory: (0) Normal - Best Language Best Language: (0) No aphasia - Dysarthria Dysarthria: (0) Normal - Extinction and Inattention (formally neg Extinction and inattention: (0) No abnormality - Total Score/Results Total Score/Result: 0 Results - Vitals Vitals: Vital Signs - 24 hr 01/07/19 01/07/19 01/07/19 18:21 18:42 18:47 Temperature 36.6 C Heart Rate 90 86 87 Respiratory 14 23 18 Rate Blood Pressure 240/94 H 223/96 H 183/77 H O2 Saturation 97 98 100 01/07/19 01/07/19 01/07/19 18:53 18:57 19:04 Temperature Heart Rate 84 85 82 Respiratory 19 20 22 Rate Blood Pressure 176/64 H 159/67 H 163/83 H O2 Saturation 97 97 96 01/07/19 01/07/19 19:24 19:50 Temperature 36.6 C Heart Rate 85 92 Respiratory 18 18 Rate Blood Pressure 166/65 H 151/67 H O2 Saturation 96 97 Oxygen O2 Source [With Activity] Room air O2 Source Room air - EKG (time done) 1843 Rate: Rate (enter#) (81) Rhythm: NSR, LAE QRS: LVH Ischemia: Other (She has significant strain pattern with mild inferior ST elevation and anterior ST elevation with abnormal anterior Q waves. The morphology is similar to but worse than the last EKG on file dated April 29, 2018, likely because of her uncontrolled blood pressure.) Computer interpretation: Agree with computer - Labs Labs: Laboratory Tests 01/07/19 01/07/19 01/07/19 18:25 18:25 18:25 WBC 11.5 H RBC 3.35 L Hgb 9.3 L Hct 28.8 L MCV 85.9 MCH 27.9 MCHC 32.4 RDW 16.1 H Plt Count 359 MPV 7.6 L Neut # (Auto) 8.7 H Lymph # (Auto) 1.5 [place] # (Auto) 1.2 H Eos # (Auto) 0.1 Baso # (Auto) 0.1 Absolute Nucleated RBC 0.01 Nucleated RBC % 0.0 PT 11.3 INR 1.0 Sodium 124 L Potassium 5.0 Chloride 95 L Carbon Dioxide 19 L Anion Gap 10.0 BUN 36 H Creatinine 1.1 H Estimated GFR (MDRD) 47 L Glucose 117 H Calcium 8.9 Total Bilirubin 0.5 AST 72 H ALT 77 H Alkaline Phosphatase 119 Troponin I Total Protein 7.8 Albumin 3.8 Globulin 4.0 Albumin/Globulin Ratio 1.0 Lipase 40 01/07/19 18:25 WBC RBC Hgb Hct MCV MCH MCHC RDW Plt Count MPV Neut # (Auto) Lymph # (Auto) [place] # (Auto) Eos # (Auto) Baso # (Auto) Absolute Nucleated RBC Nucleated RBC % PT INR Sodium Potassium Chloride Carbon Dioxide Anion Gap BUN Creatinine Estimated GFR (MDRD) Glucose Calcium Total Bilirubin AST ALT Alkaline Phosphatase Troponin I < 0.04 Total Protein Albumin Globulin Albumin/Globulin Ratio Lipase - Rads (name of study) CT head Radiology: EMP read contemporaneously (Encephalomalacia in the right frontal lobe and right cerebellum similar to prior without acute disease) PD MEDICAL DECISION MAKING - ED course Complexity details: re-evaluated patient (Nurse called me into the room about 730 because she was having spasms in her buttock. She was tender in the left gluteus and had trouble straightening her hip because of it. Review of the labs shows prerenal azotemia and low sodium so this may be due to dehydration for which she was administered IV fluids and oxycodone.) ED course: This is an 88-year-old woman with history of TIAs and CVA who appears to be on fairly maximal medical therapy who seems to be having Waxing and waning crescendo TIAs today associated with malignant hypertension which is treated with a nicardipine drip. Spoke with Dr Wu for obs at 2004 While in the department she also developed some cough and had expiratory wheezing. Her pulse oximetries remained unchanged. A DuoNeb and chest x-ray were ordered. - Critical Care Time(min): 40 Time Includes: Direct patient care, Review records, Reassess patient, Document care, Coordinate care, Medical consult, Family consult for tx dec Data interpretation: Labs, Pulse ox Procedures included in critical care time: Peripheral IV Procedures excluded from critical care time: EKG Departure - Departure Disposition: ED Place in Observation Clinical Impression: H/O aortic valve replacement, TIA (transient ischemic attack), Malignant hypertension Condition: Serious
[2019-01-07 18:40] LABS: BASOPHILS # (AUTO) 0.1 10^3/uL (0.0-0.1); BASOPHILS % (AUTO) 0.8 %; EOSINOPHILS # (AUTO) 0.1 10^3/uL (0.0-0.7); EOSINOPHILS % (AUTO) 0.6 %; HGB - HEMOGLOBIN 9.3 g/dL (12.0-16.0); LYMPHOCYTES # (AUTO) 1.5 10^3/uL (1.5-3.5); LYMPHOCYTES % (AUTO) 12.6 %; MEAN CORPUSCULAR HEMOGLOBIN 27.9 pg (27.0-31.0); MEAN CORPUSCULAR HGB CONC 32.4 g/dL (32.0-36.0); MEAN CORPUSCULAR VOLUME 85.9 fL (81.0-99.0); MEAN PLATELET VOLUME 7.6 fL (7.9-10.8); MONOCYTES # (AUTO) 1.2 10^3/uL (0.0-1.0); MONOCYTES % (AUTO) 10.2 %; NEUTROPHILS # (AUTO) 8.7 10^3/uL (1.5-6.6); NEUTROPHILS % (AUTO) 75.8 %; PLT - PLATELET COUNT 359 10^3/uL (130-450); RED BLOOD COUNT 3.35 10^6/uL (4.20-5.40); RED CELL DISTRIBUTION WIDTH 16.1 % (12.0-15.0); WHITE BLOOD COUNT 11.5 x10^3/uL (4.8-10.8)
[2019-01-07 18:50] LABS: ALBUMIN 3.8 g/dL (3.2-5.5); BILIRUBIN,TOTAL 0.5 mg/dL (0.2-1.0); CALCIUM 8.9 mg/dL (8.5-10.3); CREATININE 1.1 mg/dL (0.4-1.0); TOTAL PROTEIN 7.8 g/dL (6.7-8.2)
[2019-01-07 19:04] LABS: PT - PROTHROMBIN TIME 11.3 secs (9.9-12.6)
[2019-01-07] MEDS ORDERED: SODIUM CHLORIDE 0.9% 1,000 ML IV ONE (19:39)
[2019-01-07] MEDS ORDERED: oxyCODONE 5 MG TABLET PO STA (19:39)
--- NOTE | 2019-01-07 19:45 | CT Report ---
Reason: TIA sx Procedure Date: 01/07/2019 Accession Number: [id number] / [id number] Procedure: CT - Head W/O CPT Code: FULL RESULT: EXAM: CT HEAD EXAM DATE: 01/07/2019 07:14 PM. CLINICAL HISTORY: Altered mental status. High blood pressure. COMPARISON: Head CT dated 04/29/2018. TECHNIQUE: Multiaxial CT images were obtained from the foramen magnum to the vertex. Reformats: Sagittal and coronal. IV contrast: None. In accordance with CT protocol optimization, one or more of the following dose reduction techniques were utilized for this exam: automated exposure control, adjustment of mA and/or KV based on patient size, or use of iterative reconstructive technique. FINDINGS: Parenchyma: No intraparenchymal hemorrhage. No evidence of mass, midline shift, or CT findings of infarction. Encephalomalacia in the right frontal lobe redemonstrated and similar to the prior examination. 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 Extraaxial Spaces: Normal for age. No subdural or epidural collections identified. Ventricles: Normal in size and position. Sinuses and Orbits: Imaged paranasal sinuses, orbits, and mastoids show no significant abnormality. Bones: No evidence of fracture or calvarial defect. Other: None. IMPRESSION: 1. No acute intracranial abnormality. 2. 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 RADIA
[2019-01-07] MEDS ORDERED: ONDANSETRON 4 MG/2 ML VIAL IVP PRN (20:05)
[2019-01-07] MEDS ORDERED: ONDANSETRON ODT 4 MG TABLET TL PRN (20:05)
[2019-01-07] MEDS ORDERED: PANTOPRAZOLE 40 MG TABLET PO PRN (20:08)
--- NOTE | 2019-01-07 20:28 | HISTORY & PHYSICAL EXAMINATION ---
Chief Complaint - Chief Complaint Chief Complaint: garbled speech and confusion off and on today History of Present Illness - Admitted From Admitted From:: Home/ER - History Obtained From Records Reviewed: [facility] History obtained from: , Dr. Rodriguez, [facility] Exam Limitations: her confusion - History of Present Illness HPI Comment/Other: This elderly female lives in her own home with her . She has a history of hypertension and previous evaluations for TIAs and is on aspirin but no longer on Plavix. She began having episodic garbled speech today without headache, focal deficits, ataxia, but did have nausea. She was noted to have a very high blood pressure. She denied chest pain, shortness of breath, edema. There is been no recent change in cardiovascular endurance. She was just admitted November 19 - November 20, 2018 for shortness of breath and fever after a knee replacement on 11/14/18. She received IV Lasix then changed to p.o. spironolactone because she had moderate to severe pulmonary hypertension. She was taken off salt tablets as this was making her fluid overload worse. She was changed to metoprolol succinate from metoprolol tartrate. Her echo at that point showed a normally functioning prosthetic valve in her right knee gave her no problems while hospitalized. She then returned December 12 - December 15, 2018 for right flank pain. Found to have pyelonephritis. She was again hyponatremic. Serum osmolality was 273. Urine osmolality was 380 and urine sodium was 29. She continued to have diastolic congestive heart failure with signs of fluid overload and was again tr eated with Lasix. With that admission CT the abdomen showed hydronephrosis as well as inflammatory changes in the right renal pole. There was suggestions of a possible kidney mass. Nephrology consult was done over the phone and he recommended holding her ARB and spironolactone temporarily. During that stay she was identified as being hypertensive and started hydralazine. At discharge the telmisartan was stopped and she was only to be on half of a spironolactone. She was also discharged on a Biggs catheter. She was seen by her primary care provider on December 18. Attempt at removing the Biggs catheter was done, but she could not urinate so it was reinserted and she was referred to urology. Her liver function studies were noted to be elevated, hyponatremia was noted. Dr. Christianson felt it could be from medication. She was also noted to have worsening anemia and had occult blood positive stools. She was referred to general surgery for colonoscopy. Her medication list was updated and the telmisartan was removed. The spironolactone and metoprolol were updated. There is no mention of hydralazine. She then called her primary care provider office on December 22, rather her husb and did. Blood pressure was often above 200 systolic, rarely below 155. She was strongly encouraged to go to the emergency room but she really did not want to go. She was then seen in the office December 25. She had 2 out of 3 cards were positive for fecal occult blood. Noted was an endoscopy with a Schatzki ring in 2016 at [facility] and a barium swallow. Because of her history of TIAs in the past she was on Plavix and aspirin and Plavix was stopped with aspirin continued. 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 Beltran. Because her blood pressures were between 170-180, her telmisartan was resumed. Hydralazine is now noted on her medical record as well as spironolactone and metoprolol. Repeat serum osmolality was 270. Repeat urine sodium was 85. The called the office on December 29 and said that his stopped taking all of her medications because she was nauseated. By then she had been seen by urology for the right kidney mass and urinary retention. They were able to complete a voiding trial in their office and she was given the prescription alfulsozine then. She was able to eat when she stopped taking her medication, and was able to sleep better at night. Blood pressure was noted to be at 187. So they talked her into going back on her medications except for the alfulsozine. By then she was struggling with right lower edema and continued high blood pressure. She was seen in the office January 02. She was reinstructed on her medications and her medications were reviewed in detail. In the office she was 124/70. She was supposed to follow-up with orthopedics as well January 03 for her right tota l knee replacement 6 weeks follow-up. She presented to the emergency room today and was seen by Dr. Rodriguez. Initial blood pressure was 240/94. She was afebrile, pulse rate of 98, 14 respiration, and 97% saturated on room air. Other than being an elderly lady, she has a negative Cardiologic and neurologic exam in the ER. EKG showed strain pattern with mild inferior ST elevation and anterior ST elevation with abnormal anterior Q waves. Similar to but worse in the last EKG April 29, 2018. She is chronic anemia of 9.3, chronic elevated white cell count of 11.5. Troponin is. Hyponatremia at 124, elevated liver enzymes with AST 72 and ALT 77. History - Past Medical History Cardiovascular: reports: Hypertension, High cholesterol, Atrial fibrillation (brief post op episode after AoVR), Murmur, Valve disorder (Aortic stenosis and mitral regurgitation. Last echocardiogram November 20, 2018. LVEF 60-65%. Grade 3 diastolic dysfunction. Right ventricle normal in size and function. Normally functioning bioprosthetic valve in the aortic position with peak velocity of less than 3 m/s. Moderately abnormal right heart pressures. RVSP at rest 61 mmHg.) Respiratory: reports: Asthma Neuro: reports: CVA, TIA (with carotid endarterectomy 1994. 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 dopplers done regularly and neg. N/V/dizziness 07/25/11. MRA w segmental stenosis,prox intradural segmet of right vertebral. 50%. Carotids open. MRI showed some old disease in crebellar hemispheres bilaterally as well as what was seen on CT. 02/07/14 weak LLE and admitted for TIA. MRI unchanged. Seen by Neurology 03/14/14 and no changed made. To be on Statin, ASA, Plavix. ), Other (Left lower quadrant hemianopsia and repeat MRI 10/20/11 compared to TIA MRI 06/2011 and no change) Endocrine/Autoimmune: reports: Other (Raynaud's phenomena) GI: reports: GERD (and dysphagia starting ~ 2010. Food stuck. Seen by [facility] Chris Barba MD. EGD 08/26/17 w sidely open patent Schatzki ring, Barium swallow w Z enker's diverticulum, small HH w prom B ring.), Hemorrhoids, Other (Fecal occult blood positive stools November 2018. 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 Mastecomy and AC chemo.) : reports: Other (Right renal mass associated with pyelonephritis November 2018) HEENT: reports: Chronic vision loss, Dental implants Psych: reports: None Musculoskeletal: reports: Osteoarthritis (Status post right total knee replacement November 14, 2018. Has also had total Left hip 2001 with failed joint, abcess 04/2018.), Rheumatoid arthritis (started . Worsened by 2015. Seen by Dr. Mueller ~2000, maybe tx w MTX. Managed w joint injections. then [facility] 04/2018. 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 Otherwise nml) Ortho: reports: Hip replacement, Knee replacement /SCHOOL CAFETERIA COOK: reports: Hysterectomy (and bso ), Mastectomy Cardiovascular: reports: Valve replacement (AoVR w 21 mm Serrato II porcine 10/23/07), Other (Stress Test 01/26/07: No defects. ECHO w severe . Mild TR. ) HEENT: reports: Cataracts (right eye 10/16/12), Tonsil/Adenoidectomy, Other (Blepharoplasty 11/25/15) Derm: reports: Skin grafts, Skin cancer surgery - Family & Social History Family History: Mother: , Father: Family History Comment/Other: Mom of complications of a stroke at the age of 94. She also had previous cardiac arrhythmia, and severe hypertension. Dad at 76 of pneumonia after getting the flu. Brother has high blood pressure and peripheral neuropathy but is otherwise healthy. 3 children. 2 daughters and a son. They are all completely healthy. Living arrangement: At home Living Situation: With spouse/s.o. Social History Notes: She was born in [place]. her after meeting him at the University. He is a banker. He was drafted to [email or web address] and she lived in [place] while he was in [facility]. 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 [place] moved to the [place] about [place] years ago and have been living in their own home in [place] since that time.They spend their canales in [facility] where a lot of her joint pain and asthma goes away. She never smoked. She rarely drinks alcohol. - Substance History Use: Uses substance without health or social issues: NONE Abuse: Recurrent use of substance despite neg consequences: NONE Dependence: Experiences withdrawal or developed tolerances: NONE - POLST Patient has POLST: No POLST Status: Full Code Meds/Allgy - Home Medications Home Medications: Ambulatory Orders Medication Instructions Recorded Confirmed Aspirin [Adult Aspirin Regimen] 81 mg PO DAILY #30 tablet. 11/20/18 01/07/19 Multivit,Calc,Mins/Folic Acid 200 mcg PO DAILY #30 tablet 11/20/18 01/07/19 [One-A-Day Proactive 65 Plus Tb] Rosuvastatin Calcium [Crestor] 10 mg PO DAILY #30 tablet 11/20/18 01/07/19 Pantoprazole [Protonix] 40 mg PO DAILY PRN 12/12/18 01/07/19 Metoprolol Succinate 25 mg PO BID #60 12/15/18 01/07/19 Saccharomyces Boulardii [Florastor] 250 mg PO BIDWM #60 capsule 12/15/18 01/07/19 Spironolactone [Aldactone] 12.5 mg PO DAILY #15 tablet 12/15/18 01/07/19 Telmisartan 20 mg PO DAILY 01/07/19 01/07/19 hydrALAZINE [Apresoline] 20 mg PO TIDWM 01/07/19 01/07/19 - Allergies Allergies/Adverse Reactions: Allergies Allergy/AdvReac Type Severity Reaction Status Date / Time Sulfa (Sulfonamide Allergy Intermediate Rash Verified 01/07/19 20:11 Antibiotics) celecoxib [From Celebrex] Allergy Unknown Verified 01/07/19 20:11 pollen extracts Allergy Unknown Verified 01/07/19 20:11 propoxyphene [From Darvon] Allergy Unknown Verified 01/07/19 20:11 hydrocodone AdvReac Nausea Verified 01/07/19 20:11 Review of Systems - Constitutional Constitutional: reports: Fatigue, Poor appetite. denies: Fever, Chills, Malaise, Weakness, Diaphoresis, Night sweats - Eyes Eyes: denies: Pain, Irritation, Amaurosis, Blurred vision, Spots in vision, Field loss, Vision loss - Ears, Nose & Throat Ears, Nose & Throat: reports: Hearing loss. denies: Ear pain, Hearing aids, Tinnitus, Vertigo, Nasal pain, Nasal discharge, Dentures, Sore throat, Hoarseness - Cardiovascular Cariovascular: reports: Edema (right leg There is been persistent since her right knee replacement, not seeming to get better.). denies: Irregular heart rate, Palpitations, Chest pain, Lightheadedness, Syncope, Exertional dyspnea - Respiratory Respiratory: reports: Wheezing (Does much worse on [facility]. When she is in she will plan for the summer, all of her joint pain, and her respiratory symptoms seem to go away. She has been wheezing off and on for the last 6 weeks.), SOB at rest (this last month), SOB with exertion (this last month). denies: Cough, Sputum production, Snoring, Hemoptysis, Orthopnea, Apnea, Stridor - Gastrointestinal Gastrointestinal: reports: Nausea, Reflux/heartburn, Poor appetite. denies: Abdominal pain, Abdominal distention, Constipation, Diarrhea, Change in bowel habits, Rectal bleeding, Vomiting, Bile emesis, Bloating - Genitourinary Genitourinary: reports: Incontinence. denies: Dysuria, Frequency, Urgency, Hematuria - Musculoskeletal Musculoskeletal: reports: Joint pain. denies: Muscle aches, Stiffness, Gout - Integumentary Integumentary: reports: Lesions (Being followed by dermatology because she has so many skin cancers). denies: Rash, Pruritis, Dryness, Lumps - Neurological Neurological: reports: General weakness, Memory problems, Slurred speech (Today). denies: Focal weakness, Headache, Dizziness, Numbness, Pre-existing deficit, Abnormal gait, Seizures - Psychiatric Psychiatric: denies: Depression, Anxiety, Suicidal - Endocrine Endocrine: denies: Polyuria, Polydypsia, Polyphagia - Hematologic/Lymphatic Hematologic/Lymphatic: reports: Anemia. denies: Bruising Prior Level of Functionality: She lives with her . She is still independent with activities of daily living and is able to dress herself, feed herself, but is relying more more on her . She occasionally uses a cane out of the house. She is about 6 or 7 steps to climb from the main living level up to their bedroom. She is able to do so independently. She has not driven for over a year since her left hip revision. She still pays her own bills, balances her own checkbook. Has not really cooks for over a month and a half because of her knee replacement. Exam - Vital Signs Reviewed Vital Signs: Yes Vital Signs: Vital Signs x48h Temp Pulse Resp BP Pulse Ox 01/07/19 19:50 92 18 151/67 H 97 01/07/19 19:24 36.6 C 85 18 166/65 H 96 01/07/19 19:04 82 22 163/83 H 96 01/07/19 18:57 85 20 159/67 H 97 01/07/19 18:53 84 19 176/64 H 97 01/07/19 18:47 87 18 183/77 H 100 01/07/19 18:42 86 23 223/96 H 98 01/07/19 18:21 36.6 C 90 14 240/94 H 97 - Physical Exam General Appearance: positive: No acute distress, Mild distress, Other (Elderly, slightly vague white female who looks stated age, and has mild increased respiratory effort throughout the entire exam. Cheeks are red and flushed.) Eyes Bilateral: positive: PERRL, EOMI ENT: positive: Pharynx nml, Dry mucous membranes (She has to constantly be drinking water during the exam because her mouth is so dry.) Neck: positive: No JVD. negative: Stiff neck, Carotid bruit Respiratory: positive: Chest non-tender, Wheezes, Other (Mild increased respiratory effort while talking to me. Able to complete full sentences but has to take a gasping breath in between. No use of accessory muscles.). negative: Rales, Rhonchi Cardiovascular: positive: Regular rate & rhythm, Systolic murmur, Other (Chest wall with changes of breast cancer treatment left breast). negative: Gallop/S4, Friction rub Peripheral Pulses: positive: 1+ Abdomen: positive: Non-tender, No organomegaly, Nml bowel sounds, No distention Skin: positive: Warm, Dry. negative: No rash, Diaphoresis, Pallor Extremities: positive: Other (Right knee is slightly contracted. Still boggy around the kneecap. Her leg is diffusely mildly edematous from the knee all the way down to the right foot. Left leg is completely normal. There is no warmth, redness or heat to any joint.). negative: Nml appearance (She has metacarpal and proximal interphalangeal joint proximal mainly in the index fingers of both hands, right greater than left. Diffuse stiffness in the hips, shoulder joints. Not grossly deformed.) Neurologic/Psychiatric: positive: Oriented x3, Facial droop (The right side. Head wrinkles, right nasolabial fold much less prominent than on the left side. Eyelid closure is much weaker on the right than the left.). negative: CN's nml (2-12) (Slightly deaf with a facial droop), Motor nml (She has slight left arm and left hand weakness in comparison to the right. She says that is chronic from her previous stroke in 1993.) Reflexes: Bicep (R): 2+, Bicep (L): 1+, Knee (R): 0, Knee (L): 1+, Ankle (R): 0, Ankle (L): 0 Babinski Reflex: Right: Down, Left: Down Conclusion/Plan - Problem List (1) TIA (transient ischemic attack) Conclusion/Plan: This is an elderly woman who is had neurologic events dating all the way back to 1993. A stroke resulted in the right carotid endarterectomy. And is noted in her past medical history she has had several admissions for TIAs with multiple MRIs, multiple MR angiograms of head and neck, echocardiograms, CTs of the head. None of them have shown any new strokes. The only pathology I can see identified is vertebral artery stenosis of slightly greater than 50%. She is been seen by neurology. He did not recommend any new medication changes. It appears that we are dealing with ischemic disease and she is on maximal medical therapy. The only difference is that her Plavix was stopped in the last couple of weeks. The main current problem is hypertensive urgency As well as her garbled speech And from what I can tell is a slight right facial droop. At this point in time her speech problem has resolved.She has chronic left arm weakness from previous stroke. Plan: Observation in ICU because of Dagoberto ashton Frequent neuro checks I am dubious about this but another MRI would be in order I will not be ordering carotids or echo since all of these are up-to-date Resume Plavix Continue aspirin Continue statin (2) Malignant hypertension Conclusion/Plan: In a lady who has documented peripheral vascular disease. Could she have renal artery stenosis? Blood pressure seem to have been climbing over the last few months. Multiple medication changes have been difficult to follow through on when I read the medical record myself. I can only imagine how difficult it is for the patient and her . Plan: Renal artery Dopplers Reiterate the medication list to make sure she is compliant ICU placement because she she is on a Cardene drip and drips are not allowed on MedSurg or observation unit Resume oral medications as soon as possible. I had ordered medications to be taken from home but her went home and does not plan on coming back tonight. She has already started to respond so quickly that I wonder if comp liance is an issue even though she and her state that she is compliant. I would also recommend outpatient Nephrology opinion for control of her BP. (3) Diastolic CHF with preserved left ventricular function, NYHA class 2 Conclusion/Plan: Resume her usual spironolactone. She is dyspneic on exertion. Plan: Resume spironolactone in the morning BMP and BNP in the morning. (4) Renal mass, right Conclusion/Plan: Unknown nature. Although Dr. Christianson does note that the voiding issue was taken care of, there is no note about the renal mass issue. At this point in time there is no inpatient need for follow-up. She will follow-up with Dr. Christianson in urology for this issue. (5) Acute renal failure superimposed on stage 2 chronic kidney disease Conclusion/Plan: This is a woman who is having repeated barotrauma from hypertension. But she also had hydronephrosis with her pyelonephritis admission. Creatinine is currently elevated again. How much of visit due to diuretic effect or severe hypertension effect. Plan: IV fluids Follow through with outpatient renal consult for control of blood pressure and continued evaluation of renal artery hypertension if present Qualifiers: Acute renal failure type: unspecified Qualified Code(s): N17.9 - Acute kidney failure, unspecified; N18.2 - Chronic kidney disease, stage 2 (mild) (6) Iron deficiency anemia Conclusion/Plan: With fecal occult blood positive stool. Patient is in the process of being referred to general surgery for a colonoscopy. (7) Dysphagia Conclusion/Plan: Respiratory therapy saw her for her wheezing. And will giving her her nebulizer she noted the patient choking on water. She is already had a swallow evaluation and has been seen by ENT at [facility] in the fall 2017. It is not felt to be residual stroke. Plan: Speech therapy evaluation in the morning Qualifiers: Dysphagia type: pharyngoesophageal phase Qualified Code(s): R13.14 - Dysphagia, pharyngoesophageal phase (8) Wheezing Conclusion/Plan: In a patient who has reactive airways disease as well as diastolic congestive heart failure. I do not hear crackles, she does not have JVD, and she states that this is the wheezing she always has in the winter. But nevertheless, she i s wheezing in the face of severely elevated blood pressures.CT angiogram of the chest was done for postoperative dyspnea November 19, 2018. She had bibasilar atelectasis, no pulmonary emboli. Plan: Albuterol via nebulizer Inhaled long-acting bronchodilator to be started If no response, consider a short burst of steroids, I do not think antibiotics are necessary (9) Leg edema, right Conclusion/Plan: In a patient who has had a knee replacement dating to October. This is been chronic and presentation on physical exams here in the hospital as well as with her primary care provider office. Homans negative, no redness or tenderness in the calf or knee.The last venous Doppler ICA is on the left extremity because of near syncope and tachycardia after her hip surgery in April 2018. I do not see a venous Doppler for her right leg.Again, pulmonary angiogram was negative in October 2018 for PE. Plan: Venous Doppler right leg (10) Full code status Conclusion/Plan: Advance care planning conversation held under separate dictation (11) Elevated liver enzymes Conclusion/Plan: Abdominal ultrasound was done for the elevated liver enzymes November 19, 2018. Gallbladder was normal. No stones. Common bile duct was 4.7 mm. No intrahepatic or extrahepatic ductal dilatation. There was a cyst contiguous with the mid body of the pancreas. A questionable loculated mass along the inferior aspect of the right kidney. There was no evidence of fatty liver infiltration or cirrhosis. Because of pulmonary hypertension, she could have passive liver congestion. However she does not have bilateral leg edema. Her liver is not enlarged on exam.Primary care provider feels her elevated liver enzymes are due to medication. Plan: Acute hepatitis panel in the morning (12) Hyponatremia Conclusion/Plan: Her sodium was normal up until January 2018. Since then she has been persistently hyponatremic. She went to 133 in January 2018, was 128 by October 2018, 125 by November 2018 and 124 today. She is previously on salt tablets. Those were discontinued. In the past she was on chlorthalidone that was discontinued. Serum and urine osmolality have been done. Both have been low serum osmolality of 273 and 270 with urine osmolality being 29 December 13, and 85 December 25. She has not been on a serotonin reuptake inhibitor. She is on spironolactone. - Lab Results Fish Bones: 01/07/19 18:25 01/07/19 18:25 - Diagnostic Imaging Results Diagnostic Imaging Results: positive: Final report reviewed Diagnostic Imaging Results Comments: CHEST RADIOGRAPHY EXAM DATE: 01/07/2019 09:04 PM. CLINICAL HISTORY: Dyspnea COMPARISON: CHEST 2 VIEW 11/19/2018 8:46 PM. TECHNIQUE: 1 view. FINDINGS: Lungs/Pleura: There is perihilar reticular opacity. No evidence of lobar infiltrate or large effusion. No pneumothorax. Mediastinum: There is cardio mentally. Patient has undergone median sternotomy. There is thoracic aortic calcification. Other: None. IMPRESSION: 1. There is cardiomegaly. 2. Reticular opacity within the lungs could represent edema. 3. No evidence of lobar infiltrate or large effusion. 4. There is no evidence of pneumothorax. CT HEAD EXAM DATE: 01/07/2019 07:14 PM. CLINICAL HISTORY: Altered mental status. High blood pressure. COMPARISON: Head CT dated 04/29/2018. TECHNIQUE: Multiaxial CT images were obtained from the foramen magnum to the vertex. Reformats: Sagittal and coronal. IV contrast: None. In accordance with CT protocol optimization, one or more of the following dose reduction techniques were utilized for this exam: automated exposure control, adjustment of mA and/or KV based on patient size, or use of iterative reconstructive technique. FINDINGS: Parenchyma: No intraparenchymal hemorrhage. No evidence of mass, midline shift, or CT findings of infarction. Encephalomalacia in the right frontal lobe redemonstrated and similar to the prior examination. 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 Extraaxial Spaces: Normal for age. No subdural or epidural collections identified. Ventricles: Normal in size and position. Sinuses and Orbits: Imaged paranasal sinuses, orbits, and mastoids show no significant abnormality. Bones: No evidence of fracture or calvarial defect. Other: None. IMPRESSION: 1. No acute intracranial abnormality. 2. 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 EXAM: CT ABDOMEN AND PELVIS WITH CONTRAST. EXAM DATE: 12/11/2018 09:53 PM. CLINICAL HISTORY: Right lower quadrant pain. COMPARISONS: Abdomen with 11/19/2018 11:19 PM. TECHNIQUE: Routine helical CT imaging was performed through the abdomen and pelvis. IV contrast: 100 mL Optiray 320. Enteric contrast: No. Reconstructions: Coronal and sagittal. In accordance with CT protocol optimization, one or more of the following dose reduction techniques were utilized for this exam: automated exposure control, adjustment of mA and/or KV based on patient size, or use of iterative reconstructive technique. FINDINGS: Lung Bases: No significant findings. Liver: Normal. No masses. Gallbladder/Bile Ducts: Unremarkable. Spleen: Normal. Pancreas: Stable pancreatic atrophy and duct dilatation. No evidence of acute pancreatitis. Adrenal Glands: Normal. Kidneys: Atrophic right kidney with decreased enhancement at the lower pole at the previously described enhancing nodule. There is perinephric fluid and inflammatory stranding. No hydronephrosis. Peritoneal Cavity/Bowel: Normal. No free fluid, free air or adenopathy. No masses or acute inflammatory process. The appendix is well visualized and normal. Pelvic Organs: Normal. The bladder and visualized pelvic organs are within normal limits. Vasculature: Atherosclerotic aortoiliac disease without evidence of aneurysm. Bones: Multilevel lumbar spine disk and right hip degenerative changes. Other: None. IMPRESSION: 1. Atrophic right kidney with new inflammatory changes at the lower pole of the kidney consistent with pyelonephritis. This corresponds to the previously described enhancing nodule and clinical and imaging follow-up recommended as underlying tumor not excluded. - EKG Results EKG Interpreted Independently: No EKG Comparison: Unchanged from prior EKG Core Measures - Anticipated LOS I expect patient to be DC'd or transferred within 96 hours.: Yes - DVT/VTE - Prophylaxis VTE/DVT Device ordered at admit?: Yes
[2019-01-07] MEDS ORDERED: IPRATROPIUM/ALBUTEROL 3 ML NEB INH STA (20:52)
[2019-01-07] MEDS ORDERED: hydrALAZINE 10 MG TABLET PO SCH (21:00)
[2019-01-07] MEDS ORDERED: METOPROLOL SUCCINATE 25 MG TABLET PO SCH (21:00)
--- NOTE | 2019-01-07 21:24 | XRAY Report ---
Reason: wheezing Procedure Date: 01/07/2019 Accession Number: [id number] / [id number] Procedure: XR - Chest 1 View X-Ray CPT Code: 46811 FULL RESULT: EXAM: CHEST RADIOGRAPHY EXAM DATE: 01/07/2019 09:04 PM. CLINICAL HISTORY: Dyspnea COMPARISON: CHEST 2 VIEW 11/19/2018 8:46 PM. TECHNIQUE: 1 view. FINDINGS: Lungs/Pleura: There is perihilar reticular opacity. No evidence of lobar infiltrate or large effusion. No pneumothorax. Mediastinum: There is cardio mentally. Patient has undergone median sternotomy. There is thoracic aortic calcification. Other: None. IMPRESSION: 1. There is cardiomegaly. 2. Reticular opacity within the lungs could represent edema. 3. No evidence of lobar infiltrate or large effusion. 4. There is no evidence of pneumothorax. RADIA
[2019-01-07] MEDS: ACETAMINOPHEN 325 MG TABLET PO PRN (21:41)
[2019-01-07] MEDS: SODIUM CHLORIDE 0.9% 1,000 ML IV SCH (21:42)
[2019-01-07] MEDS: SODIUM CHLORIDE FLUSH 0.9% 10 ML SYRINGE IVP SCH (23:35)
[2019-01-07] MEDS ORDERED: niCARdipine 20 MG/200 ML 20 MG/200 ML BAG IV SCH (23:45)
--- NOTE | 2019-01-07 23:50 | ADVANCE CARE PLANNING NOTE ---
Advance Care Planning - Date/Time Date: 01/07/19 Time: 23:00 - Purpose of encounter Text: Patient would like to be full code. There has been no discussion regarding her wishes and I want to delineate if she understands her request - Parties in attendance Parties in attendance: Patient and hospitalist - Decisional capacity Decisional capacity of: Patient is intact. While she is vague at times, has occasional word finding problems, she is lucid and speech and desires and consistent in her story - Subjective/Patient's story Subjective/Patient's story: She was born in [place], and loves living in the part of [facility]. Met her while they were at University and has been for 65 years. For 5 years he was in [place], and [place]. [place] have lived here ever since and there [place] home in [place]. She says they have a view of [facility], the [facility], and she would live anywhere else. Her first taste of illness was in the when she was diagnosed with rheumatoid arthritis. She vaguely remembers seeing Dr. rizo and being on me thotrexate but thought she really did not need the treatment and did not seek treatment other than injections in various joints for the next 2 decades. She has had a left hip replacement, a right knee replacement, and started feeling like she was having more more joint complaints this last fall. The last time she remembers feeling really good was in September when they were like to land in the heat of the area really help. Once they return to the [place] by late September into October her joints have been painful ever since. She had a right knee replacement in October. And she just has not bounced back. The other thing that is been plaguing her is asthma. She is just been more dyspneic on exertion, more fatigued and wheezing much more. She has had several admissions in November.Some have been for pyelonephritis, others for TIAs, uncontrolled hypertension. The uncontrolled hypertension is resulted in some shortness of breath and diastolic heart failure. She has had several interventions and multiple specialty visits for urology, cardiology, and now is awaiting a referral to gastroenterology or general surgery for colonoscopy. She was relatively independent until her knee replacement. Her has been doing more more of the work. She feels like she just needs to get through this and she will be fine. Other than left hand weakness, she does not really think she has any neurological deficits. This dates back to a carotid endarterectomy 1993. 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 She is astounded because she feels like she has no deficits that are that severe as seen on MRI and CT of the head. Her main discomfort centers around joints. In her lungs. She otherwise feels like her heart, abdomen are in good condition. She loves living in her home in [place]. Also [place]. She is extremely proud of her children and grandchildren and could go on for "hours of talking them up" in her to light of them. Her daughter and son-in-law spent last week with her and they are wonderful cooks. She misses having them around. - Objective/Medical story Objective/Medical Story: This is a [place] lady who has hypertension, high cholesterol, and aortic valve repair, a carotid endarterectomy, rheumatoid arthritis, gastroesophageal reflux disease, and dysphagia. Most recently she has had a right knee replacement in October and has had multiple encounters with healthcare system. 5 days after knee replacement she was admitted for pulmonary hypertension with diastolic heart failure. Readmitted in November with pyelonephritis. Has had problems with urinary retention requiring a Biggs, revisions of her high blood pressure medication because of severely elevated blood pressure, new diagnosis of iron deficiency anemia, new diagnosis of a possible right kidney mass. She now presents today because she was short of breath, and blood pressure was over 200 systolic. Initial blood pressure was 240/94. She was afebrile, pulse rate of 98, 14 re spiration, and 97% saturated on room air. Other than being an elderly lady, she has a negative Cardiologic and neurologic exam in the ER. EKG showed strain pattern with mild inferior ST elevation and anterior ST elevation with abnormal anterior Q waves. Similar to but worse in the last EKG April 29, 2018. She is chronic anemia of 9.3, chronic elevated white cell count of 11.5. Troponin is. Hyponatremia at 124, elevated liver enzymes with AST 72 and ALT 77. - Goals of Care Goals of care determinations: At this point in time she feels like her baseline health status is acceptable to her. She wants to remain alive as long as possible as long as it is with his healthcare status. If she becomes ill, and gradually becomes more disabled and needs help, they have the finances that they can hire 24/7 care and still live in their own homes. She would like to live at home as long as possible for as long as possible. She does not foresee the need of ever having to live in a correction facility. Resuscitation was discussed. Chest compressions, intubation, cardioversion were all described to her. Survivability of such a event statistically was discussed with her. And if she were to survive the event, the disability that may follow was also described to her. Patient would still like to be a full code. If after resuscitation she is si gnificantly disabled and now bedbound and completely dependent on someone for her activities of late daily living she would like to be transition to palliative care and then hospice. - Plan Plan: Complete evaluation and treatment for this acute episode of care for a TIA and malignant hypertension. Her goal is to control her blood pressure, and return her home to independent living. With follow-up with her primary care provider. She is at maximal medical management with regards to statins, aspirin. We will will restart Plavix. Resume her usual antihypertensives. Make sure she is compliant. - Code Status Code Status: Attempt Resuscitation - Time Spent on Advance Care Planning Time spent on advance care plannin minutes
[2019-01-08] MEDS: oxyCODONE 5 MG TABLET PO PRN ×2 (00:03→18:38)
[2019-01-08] MEDS: ACETAMINOPHEN 325 MG TABLET PO PRN (02:43)
[2019-01-08] MEDS: ALBUTEROL NEB 2.5 MG/3 ML INH PRN ×3 (04:22→19:57)
[2019-01-08 05:29] LABS: CALCIUM 8.5 mg/dL (8.5-10.3); CREATININE 1.6 mg/dL (0.4-1.0); MAGNESIUM 2.1 mg/dL (1.7-2.8); PHOSPHORUS 3.8 mg/dL (2.5-4.6)
[2019-01-08] MEDS: FORMOTEROL FUMARATE NEB 20 MCG/2 ML INH SCH ×2 (07:37→19:57)
[2019-01-08] MEDS: SODIUM CHLORIDE 0.9% 1,000 ML IV SCH ×2 (07:59→09:22)
[2019-01-08] MEDS ORDERED: TELMISARTAN 20 MG PO SCH (09:00)
[2019-01-08] MEDS ORDERED: CLOPIDOGREL 75 MG TABLET PO SCH (09:00)
[2019-01-08] MEDS ORDERED: ASPIRIN EC 81 MG TABLET PO SCH (09:00)
[2019-01-08] MEDS ORDERED: NON FORMULARY MED (Rosuvastatin Calcium [Crestor] 10 MG) PO SCH (09:00)
[2019-01-08] MEDS ORDERED: ATORVASTATIN 40 MG TABLET PO SCH (09:00)
[2019-01-08] MEDS: TAMSULOSIN 0.4 MG CAPSULE PO SCH (09:19)
[2019-01-08 10:15] LABS: BILIRUBIN,URINE NEGATIVE (NEGATIVE); GLUCOSE, URINE (UA) NEGATIVE (NEGATIVE); KETONES,URINE (UA) NEGATIVE (NEGATIVE); LEUKOCYTE ESTERASE, URINE SMALL (NEGATIVE); NITRITE,URINE NEGATIVE (NEGATIVE); OCCULT BLOOD,URINE NEGATIVE (NEGATIVE); PROTEIN,URINE 30 mg/dL (NEGATIVE); UROBILINOGEN,URINE 0.2 (NORMAL) E.U./dL (NORMAL)
[2019-01-08 10:16] LABS: CLARITY,URINE HAZY (CLEAR)
[2019-01-08 10:48] LABS: BACTERIA,URINE Many /HPF (None Seen); CASTS, URINE 0-2 Hyaline Casts /LPF; RBC,URINE 0-5 /HPF (0-5); SQUAMOUS EPITHELIAL CELL,UR FEW Squamous (<= Few); WBC CLUMPS,URINE PRESENT; YEAST,URINE PRESENT
[2019-01-08 11:18] LABS: CREATININE,URINE 29.7 mg/dL; MICROALBUM/CREATININE RATIO,UR 831.6 ug/mg (<30.0); MICROALBUMIN,URINE 24.7 mg/dL (0-300.0)
[2019-01-08] MEDS: hydrALAZINE 25 MG TABLET PO SCH ×2 (12:54→17:09)
[2019-01-08] MEDS: SODIUM CHLORIDE FLUSH 0.9% 10 ML SYRINGE IVP SCH ×2 (12:55→18:57)
[2019-01-08] MEDS: SODIUM BICARBONATE 650 MG TABLET PO SCH ×2 (14:52→21:35)
[2019-01-08] MEDS: METHOCARBAMOL 500 MG TABLET PO PRN ×2 (15:58→21:47)
--- NOTE | 2019-01-08 16:22 | PROVIDER PROGRESS NOTE ---
Subjective - Prog Note Date Prog Note Date: 01/08/19 Prog Note Time: 16:12 - Subjective Pt reports feeling: Improved (Patient is adament that she is not confused has garbled speech only) Current Medications - Current Medications Current Medications: Active Medications Acetaminophen (Tylenol) 650 mg PO Q4HR PRN PRN Reason: Pain 1 to 4 Last Admin: 01/08/19 02:43 Dose: 650 mg Albuterol () 2.5 mg INH RTQ4H PRN PRN Reason: Wheezing Last Admin: 01/08/19 07:37 Dose: 2.5 mg Aspirin (Ecotrin) 81 mg PO DAILY [facility] Last Admin: 01/08/19 09:19 Dose: 81 mg Ferrous Sulfate (Feosol) 325 mg PO DAILYWM [facility] Formoterol Fumarate (Perforomist) 20 mcg INH RTBID [facility] Last Admin: 01/08/19 07:37 Dose: 20 mcg Hydralazine HCl (Apresoline) 50 mg PO TIDWM [facility] Last Admin: 01/08/19 12:54 Dose: 50 mg Sodium Chloride (Normal Saline 0.9%) 1,000 mls @ 75 mls/hr IV .[id number] [facility] Stop: 01/09/19 11:40 Last Admin: 01/08/19 09:22 Dose: 75 mls/hr Methocarbamol (Robaxin) 500 mg PO Q6HR PRN PRN Reason: Spasms Last Admin: 01/08/19 15:58 Dose: 500 mg Metoprolol Succinate (Toprol Xl) 25 mg PO BID [facility] Ondansetron HCl (Zofran Inj) 4 mg IVP Q6HR PRN PRN Reason: Nausea / Vomiting Last Admin: 01/07/19 23:35 Dose: 4 mg Ondansetron HCl (Zofran Odt) 4 mg TL Q6HR PRN PRN Reason: Nausea / Vomiting Oxycodone HCl (Roxicodone) 5 mg PO Q4HR PRN PRN Reason: Pain 5 to 7 Last Admin: 01/08/19 00:03 Dose: 5 mg Pantoprazole Sodium (Protonix) 40 mg PO DAILY PRN PRN Reason: Heartburn Sodium Bicarbonate (Sodium Bicarbonate) 650 mg PO TID [facility] Last Admin: 01/08/19 14:52 Dose: 650 mg Sodium Chloride (Normal Saline Flush 0.9%) 10 ml IVP 0100,0900,1700 [facility] Last Admin: 01/08/19 12:55 Dose: 10 ml Sodium Chloride (Normal Saline Flush 0.9%) 10 ml IVP PRN PRN PRN Reason: NEEDED PER PROVIDER ORDERS Tamsulosin HCl (Flomax) 0.4 mg PO DAILY [facility] Last Admin: 01/08/19 09:19 Dose: 0.4 mg Pantoprazole [Protonix] 40 mg PO DAILY PRN 12/12/18 Telmisartan 20 mg PO DAILY 01/07/19 hydrALAZINE [Apresoline] 20 mg PO TIDWM 01/07/19 Cholecalciferol (Vitamin D3) [Vitamin D] 2,000 unit PO DAILY 01/08/19 Ferrous Sulfate 325 mg PO DAILYWM 01/08/19 guaiFENesin [Guaifenesin] 400 mg PO Q4H PRN 01/08/19 Objective - Vital Signs/Intake & Output Reviewed Vital Signs: Yes Vital Signs: Vital Signs x48h Temp Pulse Resp BP Pulse Ox 01/08/19 15:00 74 23 159/72 H 99 01/08/19 13:00 37 C 71 16 133/81 H 99 01/08/19 12:00 66 11 L 168/73 H 99 01/08/19 11:00 75 15 98 01/08/19 10:00 28 H 147/96 H 97 01/08/19 09:00 37.3 C 77 17 150/75 H 99 01/08/19 08:46 74 18 109/52 L 95 Intake & Output: Intake & Output 01/05/19 01/06/19 01/07/19 01/08/19 23:59 23:59 23:59 23:59 Intake Total 1893.023 2283 Output Total 735 Balance 1207.561 3978 - Objective General Appearance: positive: No acute distress, Alert, Anxious Eyes Bilateral: positive: Normal inspection, PERRL, EOMI, Conjunctivae nml. negative: No scleral icterus ENT: positive: ENT inspection nml, Pharynx nml, No signs of dehydration Neck: positive: Nml inspection, Thyroid nml, No JVD, Trachea midline. negative: Thyromegaly, Carotid bruit Respiratory: positive: Chest non-tender, No respiratory distress, Breath sounds nml Cardiovascular: positive: Regular rate & rhythm, No murmur, No gallop. negative: Irregularly irregular, PMI displaced laterally, JVD present, Systolic murmur, Diastolic murmur, Gallop/S4 Peripheral Pulses: 2+ Dorsalis pedis (R), 2+ Dorsalis pedis (L) Abdomen: positive: Non-tender, No organomegaly, Nml bowel sounds, No distention. negative: Tenderness Skin: positive: Color nml, No rash, Warm Extremities: positive: Non-tender, Full ROM, Nml appearance, Pedal edema, Other (RLE edema). negative: Calf tenderness, Joint swelling, Isabella's sign/cords Neurologic/Psychiatric: positive: Oriented x3, CN's nml (2-12), Slurred/abnml speech. negative: Facial droop, Depressed mood/affect - Lab Results Fish Bones: 01/07/19 18:25 01/08/19 04:55 Other Labs: Lab Results x24hrs 01/08/19 01/08/19 01/08/19 Range/Units 09:45 09:45 04:55 WBC (4.8-10.8) x10^3/uL RBC (4.20-5.40) 10^6/uL Hgb (12.0-16.0) g/dL Hct (37.0-47.0) % MCV (81.0-99.0) fL MCH (27.0-31.0) pg MCHC (32.0-36.0) g/dL RDW (12.0-15.0) % Plt Count (130-450) 10^3/uL MPV (7.9-10.8) fL Neut # (Auto) (1.5-6.6) 10^3/uL Lymph # (Auto) (1.5-3.5) 10^3/uL [place] # (Auto) (0.0-1.0) 10^3/uL Eos # (Auto) (0.0-0.7) 10^3/uL Baso # (Auto) (0.0-0.1) 10^3/uL Absolute Nucleated RBC x10^3/uL Nucleated RBC % /100WBC PT (9.9-12.6) secs INR (0.8-1.2) Sodium (135-145) mmol/L Potassium (3.5-5.0) mmol/L Chloride (101-111) mmol/L Carbon Dioxide (21-32) mmol/L Anion Gap (6-13) BUN (6-20) mg/dL Creatinine (0.4-1.0) mg/dL Estimated GFR (MDRD) (>89) Glucose (70-100) mg/dL Uric Acid 5.8 (2.6-7.2) mg/dL Calcium (8.5-10.3) mg/dL Phosphorus (2.5-4.6) mg/dL Magnesium (1.7-2.8) mg/dL Total Bilirubin (0.2-1.0) mg/dL AST (10-42) IU/L ALT (10-60) IU/L Alkaline Phosphatase (42-121) IU/L Troponin I (<0.49) ng/mL B-Natriuretic Peptide (5-100) pg/mL Total Protein (6.7-8.2) g/dL Albumin (3.2-5.5) g/dL Globulin (2.1-4.2) g/dL Albumin/Globulin Ratio (1.0-2.2) Lipase (22-51) U/L Urine Color YELLOW Urine Clarity HAZY (CLEAR) Urine pH 6.0 (5.0-7.5) PH Ur Specific [place] 1.010 (1.002-1.030) Urine Protein 30 H (NEGATIVE) mg/dL Urine Glucose (UA) NEGATIVE (NEGATIVE) mg/dL Urine Ketones NEGATIVE (NEGATIVE) mg/dL Urine Occult Blood NEGATIVE (NEGATIVE) Urine Nitrite NEGATIVE (NEGATIVE) Urine Bilirubin NEGATIVE (NEGATIVE) Urine Urobilinogen 0.2 (NORMAL) (NORMAL) E.U./dL Ur Leukocyte Esterase SMALL H (NEGATIVE) Urine RBC 0-5 (0-5) /HPF Urine WBC >25 H (0-5) /HPF Urine WBC Clumps PRESENT Ur Squamous Epith Cells FEW Squamous (<= Few) Urine Bacteria Many H (None Seen) /HPF Urine Casts 0-2 Hyaline Casts /LPF Urine Yeast PRESENT Urine Culture Comments INDICATED Urine Creatinine 29.7 mg/dL Urine Microalbumin 24.7 (0-300.0) mg/dL Microalb/Creat Ratio 831.6 H (<30.0) ug/mg MRSA Surveill Initial (NEGATIVE) 01/08/19 01/08/19 01/08/19 Range/Units 04:55 04:55 04:55 WBC (4.8-10.8) x10^3/uL RBC (4.20-5.40) 10^6/uL Hgb (12.0-16.0) g/dL Hct (37.0-47.0) % MCV (81.0-99.0) fL MCH (27.0-31.0) pg MCHC (32.0-36.0) g/dL RDW (12.0-15.0) % Plt Count (130-450) 10^3/uL MPV (7.9-10.8) fL Neut # (Auto) (1.5-6.6) 10^3/uL Lymph # (Auto) (1.5-3.5) 10^3/uL [place] # (Auto) (0.0-1.0) 10^3/uL Eos # (Auto) (0.0-0.7) 10^3/uL Baso # (Auto) (0.0-0.1) 10^3/uL Absolute Nucleated RBC x10^3/uL Nucleated RBC % /100WBC PT (9.9-12.6) secs INR (0.8-1.2) Sodium 127 L (135-145) mmol/L Potassium 5.8 H (3.5-5.0) mmol/L Chloride 100 L (101-111) mmol/L Carbon Dioxide 17 L (21-32) mmol/L Anion Gap 10.0 (6-13) BUN 37 H (6-20) mg/dL Creatinine 1.6 H (0.4-1.0) mg/dL Estimated GFR (MDRD) 31 L (>89) Glucose 139 H (70-100) mg/dL Uric Acid (2.6-7.2) mg/dL Calcium 8.5 (8.5-10.3) mg/dL Phosphorus 3.8 (2.5-4.6) mg/dL Magnesium 2.1 (1.7-2.8) mg/dL Total Bilirubin (0.2-1.0) mg/dL AST (10-42) IU/L ALT (10-60) IU/L Alkaline Phosphatase (42-121) IU/L Troponin I 0.04 (<0.49) ng/mL B-Natriuretic Peptide 3024 H (5-100) pg/mL Total Protein (6.7-8.2) g/dL Albumin (3.2-5.5) g/dL Globulin (2.1-4.2) g/dL Albumin/Globulin Ratio (1.0-2.2) Lipase (22-51) U/L Urine Color Urine Clarity (CLEAR) Urine pH (5.0-7.5) PH Ur Specific [place] (1.002-1.030) Urine Protein (NEGATIVE) mg/dL Urine Glucose (UA) (NEGATIVE) mg/dL Urine Ketones (NEGATIVE) mg/dL Urine Occult Blood (NEGATIVE) Urine Nitrite (NEGATIVE) Urine Bilirubin (NEGATIVE) Urine Urobilinogen (NORMAL) E.U./dL Ur Leukocyte Esterase (NEGATIVE) Urine RBC (0-5) /HPF Urine WBC (0-5) /HPF Urine WBC Clumps Ur Squamous Epith Cells (<= Few) Urine Bacteria (None Seen) /HPF Urine Casts /LPF Urine Yeast Urine Culture Comments Urine Creatinine mg/dL Urine Microalbumin (0-300.0) mg/dL Microalb/Creat Ratio (<30.0) ug/mg MRSA Surveill Initial (NEGATIVE) 01/07/19 01/07/19 01/07/19 Range/Units 21:30 18:25 18:25 WBC (4.8-10.8) x10^3/uL RBC (4.20-5.40) 10^6/uL Hgb (12.0-16.0) g/dL Hct (37.0-47.0) % MCV (81.0-99.0) fL MCH (27.0-31.0) pg MCHC (32.0-36.0) g/dL RDW (12.0-15.0) % Plt Count (130-450) 10^3/uL MPV (7.9-10.8) fL Neut # (Auto) (1.5-6.6) 10^3/uL Lymph # (Auto) (1.5-3.5) 10^3/uL [place] # (Auto) (0.0-1.0) 10^3/uL Eos # (Auto) (0.0-0.7) 10^3/uL Baso # (Auto) (0.0-0.1) 10^3/uL Absolute Nucleated RBC x10^3/uL Nucleated RBC % /100WBC PT (9.9-12.6) secs INR (0.8-1.2) Sodium 124 L (135-145) mmol/L Potassium 5.0 (3.5-5.0) mmol/L Chloride 95 L (101-111) mmol/L Carbon Dioxide 19 L (21-32) mmol/L Anion Gap 10.0 (6-13) BUN 36 H (6-20) mg/dL Creatinine 1.1 H (0.4-1.0) mg/dL Estimated GFR (MDRD) 47 L (>89) Glucose 117 H (70-100) mg/dL Uric Acid (2.6-7.2) mg/dL Calcium 8.9 (8.5-10.3) mg/dL Phosphorus (2.5-4.6) mg/dL Magnesium (1.7-2.8) mg/dL Total Bilirubin 0.5 (0.2-1.0) mg/dL AST 72 H (10-42) IU/L ALT 77 H (10-60) IU/L Alkaline Phosphatase 119 (42-121) IU/L Troponin I < 0.04 (<0.49) ng/mL B-Natriuretic Peptide (5-100) pg/mL Total Protein 7.8 (6.7-8.2) g/dL Albumin 3.8 (3.2-5.5) g/dL Globulin 4.0 (2.1-4.2) g/dL Albumin/Globulin Ratio 1.0 (1.0-2.2) Lipase 40 (22-51) U/L Urine Color Urine Clarity (CLEAR) Urine pH (5.0-7.5) PH Ur Specific [place] (1.002-1.030) Urine Protein (NEGATIVE) mg/dL Urine Glucose (UA) (NEGATIVE) mg/dL Urine Ketones (NEGATIVE) mg/dL Urine Occult Blood (NEGATIVE) Urine Nitrite (NEGATIVE) Urine Bilirubin (NEGATIVE) Urine Urobilinogen (NORMAL) E.U./dL Ur Leukocyte Esterase (NEGATIVE) Urine RBC (0-5) /HPF Urine WBC (0-5) /HPF Urine WBC Clumps Ur Squamous Epith Cells (<= Few) Urine Bacteria (None Seen) /HPF Urine Casts /LPF Urine Yeast Urine Culture Comments Urine Creatinine mg/dL Urine Microalbumin (0-300.0) mg/dL Microalb/Creat Ratio (<30.0) ug/mg MRSA Surveill Initial NEGATIVE (NEGATIVE) 01/07/19 01/07/19 Range/Units 18:25 18:25 WBC 11.5 H (4.8-10.8) x10^3/uL RBC 3.35 L (4.20-5.40) 10^6/uL Hgb 9.3 L (12.0-16.0) g/dL Hct 28.8 L (37.0-47.0) % MCV 85.9 (81.0-99.0) fL MCH 27.9 (27.0-31.0) pg MCHC 32.4 (32.0-36.0) g/dL RDW 16.1 H (12.0-15.0) % Plt Count 359 (130-450) 10^3/uL MPV 7.6 L (7.9-10.8) fL Neut # (Auto) 8.7 H (1.5-6.6) 10^3/uL Lymph # (Auto) 1.5 (1.5-3.5) 10^3/uL [place] # (Auto) 1.2 H (0.0-1.0) 10^3/uL Eos # (Auto) 0.1 (0.0-0.7) 10^3/uL Baso # (Auto) 0.1 (0.0-0.1) 10^3/uL Absolute Nucleated RBC 0.01 x10^3/uL Nucleated RBC % 0.0 /100WBC PT 11.3 (9.9-12.6) secs INR 1.0 (0.8-1.2) Sodium (135-145) mmol/L Potassium (3.5-5.0) mmol/L Chloride (101-111) mmol/L Carbon Dioxide (21-32) mmol/L Anion Gap (6-13) BUN (6-20) mg/dL Creatinine (0.4-1.0) mg/dL Estimated GFR (MDRD) (>89) Glucose (70-100) mg/dL Uric Acid (2.6-7.2) mg/dL Calcium (8.5-10.3) mg/dL Phosphorus (2.5-4.6) mg/dL Magnesium (1.7-2.8) mg/dL Total Bilirubin (0.2-1.0) mg/dL AST (10-42) IU/L ALT (10-60) IU/L Alkaline Phosphatase (42-121) IU/L Troponin I (<0.49) ng/mL B-Natriuretic Peptide (5-100) pg/mL Total Protein (6.7-8.2) g/dL Albumin (3.2-5.5) g/dL Globulin (2.1-4.2) g/dL Albumin/Globulin Ratio (1.0-2.2) Lipase (22-51) U/L Urine Color Urine Clarity (CLEAR) Urine pH (5.0-7.5) PH Ur Specific [place] (1.002-1.030) Urine Protein (NEGATIVE) mg/dL Urine Glucose (UA) (NEGATIVE) mg/dL Urine Ketones (NEGATIVE) mg/dL Urine Occult Blood (NEGATIVE) Urine Nitrite (NEGATIVE) Urine Bilirubin (NEGATIVE) Urine Urobilinogen (NORMAL) E.U./dL Ur Leukocyte Esterase (NEGATIVE) Urine RBC (0-5) /HPF Urine WBC (0-5) /HPF Urine WBC Clumps Ur Squamous Epith Cells (<= Few) Urine Bacteria (None Seen) /HPF Urine Casts /LPF Urine Yeast Urine Culture Comments Urine Creatinine mg/dL Urine Microalbumin (0-300.0) mg/dL Microalb/Creat Ratio (<30.0) ug/mg MRSA Surveill Initial (NEGATIVE) - Diagnostic Imaging Diagnostic Imaging Results: positive: Final report reviewed ABX Reporting Has patient been on IV antibiotics over the past 48 hours?: No Assessment/Plan - Problem List (1) Acute lacunar stroke Impression: Hx TIA's in past. Would continue with ASA at 325 mg po daily and would hold Plavix due to GIB. MRI brain has confirmed a 3mm punctuate ischemic area at the left precentral gyrus. Would convert to inpatient and keep for possible rehab. BP control with hydralazine and metoprolol to avoid precipitous drops in BP to prevent "watershed" effects, statin to continue. PT/OT to follow. (2) Diastolic CHF with preserved left ventricular function, NYHA class 2 Impression: CXR shows some mild pulmonary edema and currently non-hypoxemic. Last echo done per her primary industry analyst. Would continue with med mgmt for now. EF preserved with an elevated BNP with pulmonary HTN. Afterload reduction indicated. Would hold off on diuretics for now. (3) Acute renal failure superimposed on stage 2 chronic kidney disease Impression: Acute renal insufficiency as it pertains to her diuretic use with pre-renal azotemia. Correct lytes, DON NOT give ARB, KEREN-inh, NSAIDS, or Aldactone or any nephrotoxic agents for now, perfuse kidneys with gentle diuresis. Obtain BESSIE and arterial kidney doppler to evaluate for MARCE in the setting of refractory HTN. Qualifiers: Acute renal failure type: unspecified Qualified Code(s): N17.9 - Acute kidney failure, unspecified; N18.2 - Chronic kidney disease, stage 2 (mild) (4) H/O aortic valve replacement Impression: Bioprostheic valve which does not require AC, and is allowed to perform MRI study. (5) Hyponatremia Impression: Hypervolemic Hyponatremia with elevated BNP, low serum osmolality, and with hx Diastolic HF. Would fluid restrict but will hold off as she would need to recover renal function first. (6) Iron deficiency anemia Impression: Hx GIB and iron def anemia, check occult blood, iron studies to follow and may give IV iron or epo if indicated. Relative contraindication for ASA, but currently with CVA and would benefit more due to increase risk of future CVA if not given antiplatelet agent. Qualifiers: Iron deficiency anemia type: unspecified iron deficiency Qualified Code(s): D50.9 - Iron deficiency anemia, unspecified (7) Leg edema, right Impression: US to evaluate Right DVT which unlikely. (8) Malignant hypertension Impression: Controlled now with the uptitration of hydralazine and maintaining Toprol XL at 25 mg po bid with parameters. Evaluation of MARCE pending. Alternatively may w/u secondary causes such pheochromocytoma as a differential if she fails current regimen and Arterial Kidney study is unremarkable. 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 May add lorrie, currently with FC to gravity. (10) Hyperkalemia Impression: Sec to diuretics Aldactone and being on an ARB (Telmisartan) along with some mild metabolic acidosis. Would continue gentle hydration with IVF's and avoid K- sparing diuretics. May give Kayexelate, insulin, or albuterol +/- calcium gluconate with dextrose if continues to increase>6.0 and hyperacute T-waves are seen.
--- NOTE | 2019-01-08 16:25 | MRI Report ---
Reason: new r facial droop, garbled speech, htn Procedure Date: 01/08/2019 Accession Number: [id number] / [id number] Procedure: MRI - Brain W/O CPT Code: FULL RESULT: EXAM: MRI BRAIN WITHOUT CONTRAST EXAM DATE: 01/08/2019 02:38 PM. CLINICAL HISTORY: Facial droop. COMPARISON: MRI brain 02/07/2014. CT head 01/07/2019. TECHNIQUE: Multiplanar, multisequence T1-weighted and fluid-sensitive MR sequences of the brain were performed. Sequences optimized for routine evaluation. Other: None. IV Contrast: None. FINDINGS: Encephalomalacia and gliosis are seen involving the precentral and postcentral gyrus on the right in the distribution of posterior division right MCA. There are subcortical and deep white matter FLAIR hyperintensities in the cerebral hemisphere white matter bilaterally. No ventriculomegaly is seen. Small T2 hyperintensities are seen in each cerebellum. These are greater in size and number on the right. There is an expected flow void in the major intracranial vessels at the skull base. There is an infected flow void in the superior sagittal sinus. No abnormal magnetic susceptibility is present in the brain parenchyma. No mass is present in either orbit. The superior ophthalmic vein on the right is enlarged relative to the left. This could reflect anatomic variation. IMPRESSION: 1. A tiny acute infarct is seen in the precentral gyrus on the left 2. Encephalomalacia and gliosis is seen from a prior remote right partial MCA distribution infarct. 3. Small vessel ischemic change is seen throughout the cerebral hemisphere white matter. 4. Remote infarcts are seen in each cerebellum. 5. No intracranial mass is identified. [facility] The call report notification system was initiated by Dr. Meek Frias at 04:11 PM on 01/08/2019. The above findings were discussed with Dr. Benz by Dr. Meek Frias at 04:22 PM on 01/08/2019.
[2019-01-08 17:48] LABS: % IRON SATURATION 7 % (20-50); IRON 26 ug/dL (28-170); TOTAL IRON BINDING CAPACITY 351 ug/dL (250-450); TRANSFERRIN 251 mg/dL (192-382)
--- NOTE | 2019-01-08 17:51 | Ultrasound Report ---
Reason: right leg edema after knee replacement Procedure Date: 01/08/2019 Accession Number: [id number] / [id number] Procedure: US - Duplex Ext Veins Right CPT Code: FULL RESULT: EXAM: RIGHT LOWER EXTREMITY VENOUS ULTRASOUND EXAM DATE: 01/08/2019 05:13 PM. CLINICAL HISTORY: Right leg edema after knee replacement. COMPARISON: None. TECHNIQUE: Real-time sonographic vascular imaging was performed by the charge coordinator through the lower extremity utilizing both color-flow and Doppler spectral analysis. Multiple real estate representative static images were saved for review. FINDINGS: Common Femoral Vein (CFV): Normal. CFV-GSV Junction: Normal. Profunda Femoral Vein (PFV): Normal. Femoral Vein (FV) Prox: Normal. Femoral Vein (FV) Mid: Normal. Femoral Vein (FV) Dist: Normal. Popliteal Vein: Normal. Posterior Tibial Veins: Normal. Peroneal Veins: Normal. Other: None. IMPRESSION: No evidence for deep venous thrombosis. [facility]
[2019-01-08] MEDS: guaiFENesin 600 MG TABLET PO PRN (19:20)
--- NOTE | 2019-01-08 20:36 | Ultrasound Report ---
Reason: new renal failure and K of 5.6 Procedure Date: 01/08/2019 Accession Number: [id number] / [id number] Procedure: US - Retroperitoneal CPT Code: FULL RESULT: EXAM: RENAL ULTRASOUND. EXAM DATE: 01/08/2019 04:04 PM. CLINICAL HISTORY: New renal failure and K of 5.6. COMPARISON: Abdomen/pelvis with 12/11/2018 9:30 PM. TECHNIQUE: Real-time scanning was performed with static images obtained. FINDINGS: Right Kidney: 7.2 x 3.4 x 3.5 cm. Hyperechoic echotexture. There is a 10 mm simple cyst at the upper pole. No lower pole mass seen corresponding to previously described CT abnormality. There are no perinephric fluid collections. Left Kidney: 10.8 x 4.4 x 5.1 cm. Lobulated contours. No stone, mass or hydronephrosis. Overall echotexture is normal. Bladder: Decompressed noting Biggs balloon catheter. Other: None. IMPRESSION: 1. Atrophic, hyperechoic right kidney. No hydronephrosis. Lower pole abnormality described on the comparison CT not visualized by ultrasound. 2. Normal left kidney. [facility]
--- NOTE | 2019-01-08 20:40 | Ultrasound Report ---
Reason: severe hypertension difficult to control Procedure Date: 01/08/2019 Accession Number: [id number] / [id number] Procedure: US - Arterial Visceral Complete CPT Code: FULL RESULT: EXAM: RENAL ARTERY DOPPLER ULTRASOUND. EXAM DATE: 01/08/2019 04:18 PM. CLINICAL HISTORY: Severe hypertension difficult to control. COMPARISON: 01/08/2019 renal ultrasound. TECHNIQUE: Real-time sonographic vascular imaging was performed by the skelp processor through the renal arterial system with a linear transducer utilizing color-flow, Doppler flow, and spectral analysis. Multiple district representative static images were saved for review. FINDINGS: Atrophic right kidney measuring 7.2 x 3.4 x 3.5 cm. The left kidney measures 10.8 x 4.4 x 5.1 cm. No hydronephrosis. Right renal vasculature not examined and there is limited assessment of the left renal artery due to patient factors. Prox Aorta PSV: 118 cm/sec. RRV Patent: Yes. Left Kidney: 10.8 x 4.4 x 5.1 cm. Echotexture: Within normal limits. Left Segmental Artery: Upper pole: PSV 33 cm/sec, RI 0.81. Mid pole: PSV 14 cm/sec, RI 0.78. Lower pole: PSV 15 cm/sec, RI 0.76. Left Renal Artery: Mid: PSV 95 cm/sec, RA/AO 0.8. Distal: PSV 62 cm/sec, RA/AO 0.5. LRV Patent: Yes. IMPRESSION: 1. Suboptimal visualization of the origin and proximal left renal artery. No significant stenosis distally. 2. Right renal vessels not evaluated. [facility]
[2019-01-08] MEDS: METOPROLOL SUCCINATE 25 MG TABLET PO SCH (21:35)
[2019-01-09] MEDS: SODIUM CHLORIDE FLUSH 0.9% 10 ML SYRINGE IVP SCH ×3 (01:33→22:23)
[2019-01-09] MEDS: SODIUM CHLORIDE 0.9% 1,000 ML IV SCH (01:35)
[2019-01-09 05:39] LABS: BASOPHILS % (AUTO) 0.4 %; EOSINOPHILS % (AUTO) 0.3 %; LYMPHOCYTES # (AUTO) 0.8 10^3/uL (1.5-3.5); LYMPHOCYTES % (AUTO) 9.6 %; MEAN CORPUSCULAR HEMOGLOBIN 28.3 pg (27.0-31.0); MEAN CORPUSCULAR HGB CONC 32.7 g/dL (32.0-36.0); MEAN CORPUSCULAR VOLUME 86.5 fL (81.0-99.0); MEAN PLATELET VOLUME 7.5 fL (7.9-10.8); MONOCYTES # (AUTO) 0.8 10^3/uL (0.0-1.0); MONOCYTES % (AUTO) 8.6 %; NEUTROPHILS # (AUTO) 7.1 10^3/uL (1.5-6.6); NEUTROPHILS % (AUTO) 81.1 %; PLT - PLATELET COUNT 269 10^3/uL (130-450); RED BLOOD COUNT 2.82 10^6/uL (4.20-5.40); RED CELL DISTRIBUTION WIDTH 16.2 % (12.0-15.0); WHITE BLOOD COUNT 8.8 x10^3/uL (4.8-10.8)
[2019-01-09 05:53] LABS: CHOL/HDL RATIO 2.8 (<4.4); CHOLESTEROL 128 mg/dL; HDL CHOLESTEROL 46 mg/dL; LDL CHOLESTEROL,CALCULATED 72 mg/dL; LDL/HDL RATIO 1.6 (<4.4); VLDL CHOLESTEROL 10 mg/dL
[2019-01-09 06:02] LABS: ALBUMIN 3.4 g/dL (3.2-5.5); CALCIUM 8.6 mg/dL (8.5-10.3); CREATININE 1.9 mg/dL (0.4-1.0); PHOSPHORUS 4.5 mg/dL (2.5-4.6)
[2019-01-09] MEDS: SODIUM BICARBONATE 650 MG TABLET PO SCH ×3 (06:12→22:23)
[2019-01-09] MEDS: ALBUTEROL NEB 2.5 MG/3 ML INH PRN ×3 (07:42→21:25)
[2019-01-09] MEDS: FORMOTEROL FUMARATE NEB 20 MCG/2 ML INH SCH ×2 (07:42→21:25)
[2019-01-09] MEDS ORDERED: INSULIN REGULAR HUMAN 100 UNIT/1 ML 10 ML MDV IVP STA (07:57)
[2019-01-09] MEDS ORDERED: DEXTROSE 50% ABBOJECT 25 GM/50 ML SYRINGE IVP ONE (07:58)
[2019-01-09] MEDS ORDERED: FERROUS SULFATE 325 MG TABLET PO SCH (08:00)
[2019-01-09] MEDS: hydrALAZINE 25 MG TABLET PO SCH ×3 (08:45→17:56)
[2019-01-09] MEDS: METOPROLOL SUCCINATE 25 MG TABLET PO SCH ×2 (08:46→22:23)
[2019-01-09] MEDS: ASPIRIN EC 325 MG TABLET PO SCH (08:46)
[2019-01-09] MEDS: CHOLECALCIFEROL 1,000 UNIT TABLET PO SCH (08:46)
[2019-01-09] MEDS: TAMSULOSIN 0.4 MG CAPSULE PO SCH (08:54)
[2019-01-09] MEDS: POLYETHYLENE GLYCOL 3350 17 GM PACKET PO SCH (10:13)
[2019-01-09] MEDS: guaiFENesin 600 MG TABLET PO PRN (11:18)
[2019-01-09 11:47] LABS: CALCIUM 8.8 mg/dL (8.5-10.3); CREATININE 1.7 mg/dL (0.4-1.0)
[2019-01-09] MEDS: SODIUM CHLORIDE FLUSH 0.9% 10 ML SYRINGE IVP PRN ×2 (12:27→17:58)
--- NOTE | 2019-01-09 12:28 | PROVIDER PROGRESS NOTE ---
Assessment/Plan - Problem List (1) Acute lacunar stroke Assessment/Plan: MRI confirmed a L lacunar stroke. Prior CVAs also seen. Patient to start PT today and may want PT after DCh. She wants explanation reg arding PT with Home Health. She describes that she never really finished PT after the elective R knee surgery done 6 weeks ago. Allow permissive HTN, BPs in 170's - 180's, to perfuse the brain. She just had Echo and carotid Dopplers recently without findings that need intervention. Continue ASA daily. Plavix is on hold due to suspicion for GI blood loss anemia. (2) Acute renal failure superimposed on stage 2 chronic kidney disease Qualifiers: Acute renal failure type: unspecified Qualified Code(s): N17.9 - Acute kidney failure, unspecified; N18.2 - Chronic kidney disease, stage 2 (mild) Assessment/Plan: Imaging for MARCE showed that the R kidney is atrophic, therefore she is probably working with 1 kidney, the L one. She was getting iv fluids at 75 cc/hr, which need to be stopped due to SOB and pleural effusion, by clinical exam. I had a long discussion with the patient and her at bedside, regarding needing Nephrology evaluation and management after Dch. I will ask for records from the Urologist who she saw once, and was told she had urinary retention vs obstruction. Will adjust diet to low K. Follow BMP daily. (3) Urinary retention Assessment/Plan: The details of this are unclear. She describes needing a Biggs for 1 week as an outpatient until she was seen by Urology, Dr Knight at [facility]. Apparently he put her on 2 meds, one of which caused N/V, the other is Flomax, and she has a F/U appointment to him in 1 week. Neithrr she nor the know what her diagnosis was. I will request the office visit notes to be FAXed here to determine what the Impression and Plan were. Plan to remove Biggs as soon as is possible, unless she needs it again for urinary bladder decompression due to an obstruction, perhaps. (4) Hyperkalemia Assessment/Plan: K was 5 at admission >> 5.8 >> 6 today. Will treat with Insulin iv and D50. Continue po Bicarb dosing. Follow serum potassium more frequently. Continue telemetry. (5) Malignant hypertension Assessment/Plan: BP improved. Her ARB and Spironolactone were stopped due to AIDA on CKD. Hydralazine and Amlodipine are keeping BP 170's. (6) Diastolic CHF with preserved left ventricular function, NYHA class 2 Assessment/Plan: She has mikld leg edema, a R pleural effusion by exam and is Hyponatremic. Will stop iv saline at 75 cc/hr and start free water restriction. (7) H/O aortic valve replacement Assessment/Plan: The bioprosthetic aortic valve has normal function, despite a loud murmur, when it was checked just by Echo 1-2 mos ago. (8) Hyponatremia Assessment/Plan: This has been a recurrent problem for this patient. About 2 mos ago, it was treated with salt tablets at another hospital which led to volume overload. Currently she is volume overloaded by exam. Will stop iv saline hydration at 75 cc/hr and start Free Water restriction. Monitor BMP daily. (9) Iron deficiency anemia Qualifiers: Iron deficiency anemia type: unspecified iron deficiency Qualified Code(s): D50.9 - Iron deficiency anemia, unspecified Assessment/Plan: The anemia may be adding to her SOB and the heart murmur. Labs show Iron deficiency with low Fe and TIBC. A guaic test of stool has been ordered and still pending. Ferrous sulfate was contimued from her home med list, but I will change it to Ferrous Gluconate, which is more readily absorbed and metabolized. Monitor CBC daily, as she may need a blood transfusion if Hgb <7 and she is SOB, symptomatic. (10) Knee joint replacement status Qualifiers: Laterality: right Qualified Code(s): Z96.651 - Presence of right artificial knee joint Assessment/Plan: The patient describes starting outpatient PT after the knee surgery (6 weeks ago), but was not able to benefit from it and finish due to frequent set backs like ER visits and hospitalizations. She still has some post-op pain there and takes pain meds. - Current Meds Current Meds: Current Medications Generic Name Dose Route Start Last Admin Trade Name Freq PRN Reason Stop Dose Admin Acetaminophen 650 mg 01/07/19 20:05 01/08/19 02:43 Tylenol PO 650 mg Q4HR PRN Administration Pain 1 to 4 Albuterol 2.5 mg 01/08/19 01:55 01/09/19 07:42 INH 2.5 mg RTQ4H PRN Administration Wheezing Aspirin 325 mg 01/09/19 09:00 01/09/19 08:46 Ecotrin PO 325 mg DAILY ADAM Administration Cholecalciferol 2,000 unit 01/09/19 09:00 01/09/19 08:46 Vitamin D3 PO 2,000 unit DAILY ADAM Administration Ferrous Sulfate 325 mg 01/09/19 08:00 01/09/19 08:45 Feosol PO 325 mg DAILYWM ADAM Administration Formoterol Fumarate 20 mcg 01/08/19 07:00 01/09/19 07:42 Perforomist INH 20 mcg RTBID ADAM Administration Guaifenesin 600 mg 01/08/19 16:34 01/09/19 11:18 Mucinex PO 600 mg BID PRN Administration CONGESTION Hydralazine HCl 50 mg 01/08/19 12:00 01/09/19 08:45 Apresoline PO 50 mg TIDWM ADAM Administration Methocarbamol 500 mg 01/08/19 06:47 01/08/19 21:47 Robaxin PO 500 mg Q6HR PRN Administration Spasms Metoprolol Succinate 25 mg 01/08/19 09:05 01/09/19 08:46 Toprol Xl PO 25 mg BID [facility] Administration Ondansetron HCl 4 mg 01/07/19 20:05 01/07/19 23:35 Zofran Inj IVP 4 mg Q6HR PRN Administration Nausea / Vomiting Oxycodone HCl 5 mg 01/07/19 20:05 01/08/19 18:38 Roxicodone PO 5 mg Q4HR PRN Administration Pain 5 to 7 Polyethylene Glycol 17 gm 01/09/19 10:00 01/09/19 10:13 Miralax PO 17 gm DAILY [facility] Administration Sodium Bicarbonate 650 mg 01/08/19 14:00 01/09/19 06:12 Sodium Bicarbonate PO 650 mg TID [facility] Administration Sodium Chloride 10 ml 01/08/19 01:00 01/09/19 10:14 Normal Saline Flush 0.9% IVP Not Given 0100,0900,1700 [facility] Tamsulosin HCl 0.4 mg 01/08/19 09:00 01/09/19 08:54 Flomax PO 0.4 mg DAILY ADAM Administration - Lab Result Fish Bone Diagrams: 01/09/19 04:48 01/09/19 11:36 - Additional Planning My Orders: My Active Orders 01/09/19 Social Work Consult [CONS] Routine Evaluate and Treat OT [OT] Routine Evaluate and Treat PT [PT] Routine 01/09/19 10:00 Polyethylene Glycol 3350 [Miralax] 17 gm PO DAILY 01/09/19 11:14 Transfer [Admit \ Transfer \ Status] [RC] .ONCE 01/10/19 05:00 BMP - BASIC METABOLIC PANEL [CHEM] DAILYLAB CBC - COMP BLD CT W/AUTO DIFF [HEME] DAILYLAB 01/11/19 05:00 BMP - BASIC METABOLIC PANEL [CHEM] DAILYLAB CBC - COMP BLD CT W/AUTO DIFF [HEME] DAILYLAB 01/12/19 05:00 BMP - BASIC METABOLIC PANEL [CHEM] DAILYLAB CBC - COMP BLD CT W/AUTO DIFF [HEME] DAILYLAB Subjective - Subjective Patient Reports: Feeling Better, Shortness of Breath Objective Vital Signs: Vital Signs - 24 hr 01/08/19 01/08/19 01/08/19 13:00 15:00 16:00 Temperature 37 C Heart Rate Heart Rate [ Activity] Heart Rate [ 71 74 75 Monitoring electrodes] Heart Rate [ Supine] Respiratory 16 23 14 Rate Blood Pressure [Activity] Blood Pressure 133/81 H 159/72 H 149/69 H [Right Brachial artery] Blood Pressure [Supine] O2 Saturation 99 99 96 01/08/19 01/08/19 01/08/19 17:00 18:00 19:00 Temperature Heart Rate Heart Rate [ Activity] Heart Rate [ 72 89 87 Monitoring electrodes] Heart Rate [ Supine] Respiratory 11 L 18 23 Rate Blood Pressure [Activity] Blood Pressure 141/55 H 157/72 H 164/70 H [Right Brachial artery] Blood Pressure [Supine] O2 Saturation 97 99 98 01/08/19 01/08/19 01/08/19 19:57 20:00 21:00 Temperature 36.7 C Heart Rate 87 Heart Rate [ Activity] Heart Rate [ 83 89 Monitoring electrodes] Heart Rate [ Supine] Respiratory 20 16 16 Rate Blood Pressure [Activity] Blood Pressure 160/75 H 158/74 H [Right Brachial artery] Blood Pressure [Supine] O2 Saturation 98 96 01/08/19 01/08/19 01/09/19 22:00 23:00 00:00 Temperature 36.8 C Heart Rate Heart Rate [ Activity] Heart Rate [ 84 72 73 Monitoring electrodes] Heart Rate [ Supine] Respiratory 14 14 13 Rate Blood Pressure [Activity] Blood Pressure 157/56 H 150/67 H 132/59 H [Right Brachial artery] Blood Pressure [Supine] O2 Saturation 95 96 96 01/09/19 01/09/19 01/09/19 01:00 02:00 03:00 Temperature Heart Rate Heart Rate [ Activity] Heart Rate [ 71 72 78 Monitoring electrodes] Heart Rate [ Supine] Respiratory 11 L 11 L 17 Rate Blood Pressure [Activity] Blood Pressure 132/70 H 128/65 144/60 H [Right Brachial artery] Blood Pressure [Supine] O2 Saturation 96 95 97 01/09/19 01/09/19 01/09/19 04:00 05:00 06:00 Temperature 36.7 C Heart Rate Heart Rate [ Activity] Heart Rate [ 80 75 71 Monitoring electrodes] Heart Rate [ Supine] Respiratory 19 15 11 L Rate Blood Pressure [Activity] Blood Pressure 150/64 H 178/70 H 160/83 H [Right Brachial artery] Blood Pressure [Supine] O2 Saturation 97 96 96 01/09/19 01/09/19 01/09/19 07:00 07:43 08:00 Temperature 36.8 C Heart Rate 81 Heart Rate [ Activity] Heart Rate [ 71 85 Monitoring electrodes] Heart Rate [ Supine] Respiratory 10 L 18 23 Rate Blood Pressure [Activity] Blood Pressure 157/83 H 180/76 H [Right Brachial artery] Blood Pressure [Supine] O2 Saturation 95 98 01/09/19 01/09/19 01/09/19 09:00 10:00 10:55 Temperature Heart Rate Heart Rate [ 100 Activity] Heart Rate [ 93 90 Monitoring electrodes] Heart Rate [ 94 Supine] Respiratory 19 20 Rate Blood Pressure 173/69 H [Activity] Blood Pressure 166/99 H 161/68 H [Right Brachial artery] Blood Pressure 161/68 H [Supine] O2 Saturation 98 01/09/19 01/09/19 01/09/19 11:00 12:00 12:15 Temperature 37.2 C Heart Rate Heart Rate [ Activity] Heart Rate [ 91 84 83 Monitoring electrodes] Heart Rate [ Supine] Respiratory 18 21 24 Rate Blood Pressure [Activity] Blood Pressure 167/65 H 180/77 H 180/77 H [Right Brachial artery] Blood Pressure [Supine] O2 Saturation 95 100 Oxygen O2 Source [With Activity] Room air O2 Source Room air I&O (Last 24 Hrs): Intake and Output Totals x24h 01/07/19 01/08/19 01/09/19 23:59 23:59 23:59 Intake Total 4699.112 8916 1321.25 Output Total 1080 750 Balance 8082.880 8909 571.25 General: Alert, Oriented x3 HEENT: Mucous membr. moist/pink, Other (R eye droop) Neck: Supple, No JVD Neuro: Other (Word finding difficulty, mild. R facial droop.) Cardiovascular: Regular rate, Other (3/6 syst murmur at base) Respiratory: Other (R base diminished and rales at mid lung field. L clear.) Abdomen: Normal bowel sounds, Soft Extremities: Other (1+ edema, R>L. R knee has recent clean scar.) - Results Results: Laboratory Results WBC 8.8 x10^3/uL (4.8-10.8) 01/09/19 04:48 RBC 2.82 10^6/uL (4.20-5.40) L 01/09/19 04:48 Hgb 8.0 g/dL (12.0-16.0) L 01/09/19 04:48 Hct 24.4 % (37.0-47.0) L 01/09/19 04:48 MCV 86.5 fL (81.0-99.0) 01/09/19 04:48 MCH 28.3 pg (27.0-31.0) 01/09/19 04:48 MCHC 32.7 g/dL (32.0-36.0) 01/09/19 04:48 RDW 16.2 % (12.0-15.0) H 01/09/19 04:48 Plt Count 269 10^3/uL (130-450) 01/09/19 04:48 MPV 7.5 fL (7.9-10.8) L 01/09/19 04:48 Neut # (Auto) 7.1 10^3/uL (1.5-6.6) H 01/09/19 04:48 Lymph # (Auto) 0.8 10^3/uL (1.5-3.5) L 01/09/19 04:48 Lake # (Auto) 0.8 10^3/uL (0.0-1.0) 01/09/19 04:48 Eos # (Auto) 0.0 10^3/uL (0.0-0.7) 01/09/19 04:48 Baso # (Auto) 0.0 10^3/uL (0.0-0.1) 01/09/19 04:48 Absolute Nucleated RBC 0.00 x10^3/uL 01/09/19 04:48 Nucleated RBC % 0.0 /100WBC 01/09/19 04:48 PT 11.3 secs (9.9-12.6) 01/07/19 18:25 INR 1.0 (0.8-1.2) 01/07/19 18:25 Sodium 128 mmol/L (135-145) L 01/09/19 11:36 Potassium 5.5 mmol/L (3.5-5.0) H 01/09/19 11:36 Chloride 104 mmol/L (101-111) 01/09/19 11:36 Carbon Dioxide 15 mmol/L (21-32) L 01/09/19 11:36 Anion Gap 9.0 (6-13) 01/09/19 11:36 BUN 43 mg/dL (6-20) H 01/09/19 11:36 Creatinine 1.7 mg/dL (0.4-1.0) H 01/09/19 11:36 Estimated GFR (MDRD) 28 (>89) L 01/09/19 11:36 Glucose 142 mg/dL (70-100) H 01/09/19 11:36 Uric Acid 5.8 mg/dL (2.6-7.2) 01/08/19 04:55 Calcium 8.8 mg/dL (8.5-10.3) 01/09/19 11:36 Phosphorus 4.5 mg/dL (2.5-4.6) 01/09/19 04:48 Magnesium 2.4 mg/dL (1.7-2.8) 01/09/19 00:01 Iron 26 ug/dL (28-170) L 01/08/19 04:55 TIBC 351 ug/dL (250-450) 01/08/19 04:55 % Saturation 7 % (20-50) L 01/08/19 04:55 Transferrin 251 mg/dL (192-382) 01/08/19 04:55 Total Bilirubin 0.5 mg/dL (0.2-1.0) 01/07/19 18:25 AST 72 IU/L (10-42) H 01/07/19 18:25 ALT 77 IU/L (10-60) H 01/07/19 18:25 Alkaline Phosphatase 119 IU/L (42-121) 01/07/19 18:25 Troponin I 0.04 ng/mL (<0.49) 01/08/19 04:55 B-Natriuretic Peptide 3024 pg/mL (5-100) H 01/08/19 04:55 Total Protein 7.8 g/dL (6.7-8.2) 01/07/19 18:25 Albumin 3.4 g/dL (3.2-5.5) 01/09/19 04:48 Globulin 4.0 g/dL (2.1-4.2) 01/07/19 18:25 Albumin/Globulin Ratio 1.0 (1.0-2.2) 01/07/19 18:25 Triglycerides 51 mg/dL (-149) 01/09/19 04:48 Cholesterol 128 mg/dL (-199) 01/09/19 04:48 LDL Cholesterol, Calc 72 mg/dL (-129) 01/09/19 04:48 VLDL Cholesterol 10 mg/dL 01/09/19 04:48 HDL Cholesterol 46 mg/dL (60-) L 01/09/19 04:48 LDL/HDL Ratio 1.6 (<4.4) 01/09/19 04:48 Cholesterol/HDL Ratio 2.8 (<4.4) 01/09/19 04:48 Lipase 40 U/L (22-51) 01/07/19 18:25 Urine Color YELLOW 01/08/19 09:45 Urine Clarity HAZY (CLEAR) 01/08/19 09:45 Urine pH 6.0 PH (5.0-7.5) 01/08/19 09:45 Ur Specific Mason 1.010 (1.002-1.030) 01/08/19 09:45 Urine Protein 30 mg/dL (NEGATIVE) H 01/08/19 09:45 Urine Glucose (UA) NEGATIVE mg/dL (NEGATIVE) 01/08/19 09:45 Urine Ketones NEGATIVE mg/dL (NEGATIVE) 01/08/19 09:45 Urine Occult Blood NEGATIVE (NEGATIVE) 01/08/19 09:45 Urine Nitrite NEGATIVE (NEGATIVE) 01/08/19 09:45 Urine Bilirubin NEGATIVE (NEGATIVE) 01/08/19 09:45 Urine Urobilinogen 0.2 (NORMAL) E.U./dL (NORMAL) 01/08/19 09:45 Ur Leukocyte Esterase SMALL (NEGATIVE) H 01/08/19 09:45 Urine RBC 0-5 /HPF (0-5) 01/08/19 09:45 Urine WBC >25 /HPF (0-5) H 01/08/19 09:45 Urine WBC Clumps PRESENT 01/08/19 09:45 Ur Squamous Epith Cells FEW Squamous (<= Few) 01/08/19 09:45 Urine Bacteria Many /HPF (None Seen) H 01/08/19 09:45 Urine Casts 0-2 Hyaline Casts /LPF 01/08/19 09:45 Urine Yeast PRESENT 01/08/19 09:45 Urine Culture Comments INDICATED 01/08/19 09:45 Urine Creatinine 29.7 mg/dL 01/08/19 09:45 Urine Microalbumin 24.7 mg/dL (0-300.0) 01/08/19 09:45 Microalb/Creat Ratio 831.6 ug/mg (<30.0) H 01/08/19 09:45 MRSA Surveill Initial NEGATIVE (NEGATIVE) 01/07/19 21:30 ABX Reporting Has patient been on IV antibiotics over the past 48 hours?: No
[2019-01-09] MEDS: DOCUSATE SODIUM 250 MG CAPSULE PO SCH (22:23)
--- NOTE | 2019-01-10 00:11 | XRAY Report ---
Reason: wheezing Procedure Date: 01/09/2019 Accession Number: [id number] / [id number] Procedure: XR - Chest 1 View X-Ray CPT Code: 92087 FULL RESULT: EXAM: CHEST RADIOGRAPHY EXAM DATE: 01/09/2019 11:49 PM. CLINICAL HISTORY: Wheezing. COMPARISON: CHEST 1 VIEW 01/07/2019 8:54 PM. TECHNIQUE: 1 view. FINDINGS: Lungs/Pleura: Interstitial opacities, similar to previous, likely representing edema. Trace right effusion. No pneumothorax. Mediastinum: Cardiomegaly and postoperative changes. Other: None. IMPRESSION: Cardiomegaly, with interstitial densities, likely representing pulmonary edema. Trace right effusion. RADIA
[2019-01-10] MEDS: SODIUM CHLORIDE FLUSH 0.9% 10 ML SYRINGE IVP SCH ×3 (00:44→16:41)
[2019-01-10 05:44] LABS: BASOPHILS % (AUTO) 0.4 %; EOSINOPHILS # (AUTO) 0.1 10^3/uL (0.0-0.7); EOSINOPHILS % (AUTO) 1.1 %; HGB - HEMOGLOBIN 7.9 g/dL (12.0-16.0); LYMPHOCYTES # (AUTO) 1.2 10^3/uL (1.5-3.5); LYMPHOCYTES % (AUTO) 14.4 %; MEAN CORPUSCULAR HEMOGLOBIN 27.8 pg (27.0-31.0); MEAN CORPUSCULAR HGB CONC 32.4 g/dL (32.0-36.0); MEAN CORPUSCULAR VOLUME 85.8 fL (81.0-99.0); MEAN PLATELET VOLUME 7.4 fL (7.9-10.8); MONOCYTES # (AUTO) 0.8 10^3/uL (0.0-1.0); MONOCYTES % (AUTO) 8.9 %; NEUTROPHILS # (AUTO) 6.3 10^3/uL (1.5-6.6); NEUTROPHILS % (AUTO) 75.2 %; PLT - PLATELET COUNT 249 10^3/uL (130-450); RED BLOOD COUNT 2.83 10^6/uL (4.20-5.40); WHITE BLOOD COUNT 8.4 x10^3/uL (4.8-10.8)
[2019-01-10 05:48] LABS: CALCIUM 8.5 mg/dL (8.5-10.3); CREATININE 1.5 mg/dL (0.4-1.0)
[2019-01-10] MEDS: SODIUM BICARBONATE 650 MG TABLET PO SCH ×3 (05:52→21:15)
[2019-01-10] MEDS: SENNA 8.6 MG TABLET PO SCH (08:34)
[2019-01-10] MEDS: FERROUS GLUCONATE 324 MG TABLET PO SCH (08:34)
[2019-01-10] MEDS: POLYETHYLENE GLYCOL 3350 17 GM PACKET PO SCH (08:35)
[2019-01-10] MEDS: TAMSULOSIN 0.4 MG CAPSULE PO SCH (08:35)
[2019-01-10] MEDS: ASPIRIN EC 325 MG TABLET PO SCH (08:35)
[2019-01-10] MEDS: hydrALAZINE 25 MG TABLET PO SCH ×3 (08:35→16:41)
[2019-01-10] MEDS: METOPROLOL SUCCINATE 25 MG TABLET PO SCH ×2 (08:35→21:15)
[2019-01-10] MEDS: CHOLECALCIFEROL 1,000 UNIT TABLET PO SCH (08:35)
[2019-01-10] MEDS: DOCUSATE SODIUM 250 MG CAPSULE PO SCH (08:35)
[2019-01-10] MEDS: guaiFENesin 600 MG TABLET PO PRN (10:10)
[2019-01-10] MEDS: ALBUTEROL NEB 2.5 MG/3 ML INH PRN ×2 (10:40→22:03)
[2019-01-10 14:17] LABS: HEPATITIS A IGM NON-REACTIVE (NON-REACTIVE); HEPATITIS B CORE ANTIBODY IGM NON-REACTIVE (NON-REACTIVE); HEPATITIS B SURFACE ANTIGEN NON-REACTIVE (NON-REACTIVE); HEPATITIS C ANTIBODY NON-REACTIVE (NON-REACTIVE)
--- NOTE | 2019-01-10 17:42 | PROVIDER PROGRESS NOTE ---
Assessment/Plan - Problem List (1) Acute lacunar stroke Assessment/Plan: Her speech improved. She is doing too well to need inpatient PT or Home Health PT. Will advise outpatient rehab to be resume, after DCh. Continue ASA. Her cholesterol panel showed an LDL of 72 and she was on a Crestor 10 mg at home. Will assure she is on substitute Lipitor 40 mg qhs while here. (2) Acute renal failure superimposed on stage 2 chronic kidney disease Qualifiers: Acute renal failure type: unspecified Qualified Code(s): N17.9 - Acute kidney failure, unspecified; N18.2 - Chronic kidney disease, stage 2 (mild) Assessment/Plan: Minimally better creat, and minimally neg fluid balance with po free water restriction. Start Lasix low dose and monitor BMP daily. (3) Urinary retention Assessment/Plan: The records from the Urology visit showed that she passed a voiding test, and t hat the reason for urinary retention was felt to be immobilized status from hospitalizations. Marcelino remove Biggs and watch urine output, especially since diuretic to be started. (4) Hyperkalemia Assessment/Plan: Resolved off Spironolactone and ARB. Those meds will not be used to control BP. (5) Malignant hypertension Assessment/Plan: Bp in 120-160's on cutrent meds. Will add diuretic. (6) Diastolic CHF with preserved left ventricular function, NYHA class 2 Assessment/Plan: The reported that the patient "tends to retain fluid" as an outpatient. Will start diuretic: Lasix 40 mg po on ,,Tue. (7) H/O aortic valve replacement Assessment/Plan: Stable (8) Hyponatremia Assessment/Plan: Persistent low Na, possibly from CKD and volume retention. (9) Iron deficiency anemia Qualifiers: Iron deficiency anemia type: unspecified iron deficiency Qualified Code(s): D50.9 - Iron deficiency anemia, unspecified Assessment/Plan: Iron replacement orally started and will be continued at discharge. (10) Knee joint replacement status Qualifiers: Laterality: right Qualified Code(s): Z96.651 - Presence of right artificial knee joint Assessment/Plan: PT and low doses of pain meds required. - Current Meds Current Meds: Current Medications Generic Name Dose Route Start Last Admin Trade Name Freq PRN Reason Stop Dose Admin Acetaminophen 650 mg 01/07/19 20:05 01/08/19 02:43 Tylenol PO 650 mg Q4HR PRN Administration Pain 1 to 4 Albuterol 2.5 mg 01/08/19 01:55 01/10/19 10:40 INH 2.5 mg RTQ4H PRN Administration Wheezing Aspirin 325 mg 01/09/19 09:00 01/10/19 08:35 Ecotrin PO 325 mg DAILY ADAM Administration Cholecalciferol 2,000 unit 01/09/19 09:00 01/10/19 08:35 Vitamin D3 PO 2,000 unit DAILY ADAM Administration Docusate Sodium 250 - 500 mg 01/09/19 21:00 01/10/19 08:35 Colace 250mg Capsule PO 250 mg DAILY ADAM Administration Ferrous Gluconate 324 mg 01/10/19 08:00 01/10/19 08:34 Fergon PO 324 mg DAILYWM ADAM Administration Guaifenesin 600 mg 01/08/19 16:34 01/10/19 10:10 Mucinex PO 600 mg BID PRN Administration CONGESTION Hydralazine HCl 50 mg 01/08/19 12:00 01/10/19 16:41 Apresoline PO 50 mg TIDWM ADAM Administration Methocarbamol 500 mg 01/08/19 06:47 01/08/19 21:47 Robaxin PO 500 mg Q6HR PRN Administration Spasms Metoprolol Succinate 25 mg 01/08/19 09:05 01/10/19 08:35 Toprol Xl PO 25 mg BID ADAM Administration Ondansetron HCl 4 mg 01/07/19 20:05 01/07/19 23:35 Zofran Inj IVP 4 mg Q6HR PRN Administration Nausea / Vomiting Oxycodone HCl 5 mg 01/07/19 20:05 01/08/19 18:38 Roxicodone PO 5 mg Q4HR PRN Administration Pain 5 to 7 Polyethylene Glycol 17 gm 01/09/19 10:00 01/10/19 08:35 Miralax PO 17 gm DAILY ADAM Administration Senna 8.6 - 17.2 mg 01/10/19 09:00 01/10/19 08:34 Senokot PO 8.6 mg DAILY ADAM Administration Sodium Bicarbonate 650 mg 01/08/19 14:00 01/10/19 13:05 Sodium Bicarbonate PO 650 mg TID ADAM Administration Sodium Chloride 10 ml 01/08/19 01:00 01/10/19 16:41 Normal Saline Flush 0.9% IVP 10 ml 0100,0900,1700 ADAM Administration Sodium Chloride 10 ml 01/07/19 20:05 01/09/19 17:58 Normal Saline Flush 0.9% IVP 10 ml PRN PRN Administration NEEDED PER PROVIDER ORDERS Tamsulosin HCl 0.4 mg 01/08/19 09:00 01/10/19 08:35 Flomax PO 0.4 mg DAILY ADAM Administration - Lab Result Fish Bone Diagrams: 01/10/19 05:30 01/10/19 05:30 - Additional Planning My Orders: My Active Orders 01/09/19 17:22 Telemetry (24 Hour) [RC] Q4HR 01/09/19 21:00 Docusate Sodium 250Mg Capsule [Colace 250Mg Capsule] 250 - 500 mg PO DAILY 01/10/19 08:00 Ferrous Gluconate [Fergon] 324 mg PO DAILYWM 01/10/19 09:00 Senna [Senokot] 8.6 - 17.2 mg PO DAILY 01/11/19 05:00 BMP - BASIC METABOLIC PANEL [CHEM] DAILYLAB CBC - COMP BLD CT W/AUTO DIFF [HEME] DAILYLAB 01/12/19 05:00 BMP - BASIC METABOLIC PANEL [CHEM] DAILYLAB CBC - COMP BLD CT W/AUTO DIFF [HEME] DAILYLAB Subjective - Subjective Patient Reports: Feeling Better, Resting Comfortably, Other (Less SOB, still has slight cough) Objective Vital Signs: Vital Signs - 24 hr 01/09/19 01/09/19 01/09/19 18:50 21:01 21:25 Temperature 36.6 C 36.7 C Heart Rate 86 Heart Rate [ 86 83 Monitoring electrodes] Respiratory 20 20 18 Rate Blood Pressure [Left Ankle] Blood Pressure [Right Ankle] Blood Pressure 174/68 H 178/68 H [Right Brachial artery] O2 Saturation 100 100 01/10/19 01/10/19 01/10/19 00:30 05:50 07:38 Temperature 36.8 C 36.7 C 36.7 C Heart Rate Heart Rate [ 81 77 75 Monitoring electrodes] Respiratory 16 18 16 Rate Blood Pressure [Left Ankle] Blood Pressure 178/64 H [Right Ankle] Blood Pressure 157/62 H 161/65 H [Right Brachial artery] O2 Saturation 98 96 95 01/10/19 01/10/19 01/10/19 10:40 13:00 16:01 Temperature 36.3 C L 36.6 C Heart Rate 76 Heart Rate [ 87 79 Monitoring electrodes] Respiratory 20 19 18 Rate Blood Pressure 122/93 H [Left Ankle] Blood Pressure [Right Ankle] Blood Pressure 182/66 H [Right Brachial artery] O2 Saturation 96 95 01/10/19 16:43 Temperature Heart Rate Heart Rate [ 77 Monitoring electrodes] Respiratory Rate Blood Pressure [Left Ankle] Blood Pressure [Right Ankle] Blood Pressure 175/66 H [Right Brachial artery] O2 Saturation Oxygen O2 Source [With Activity] Room air O2 Source Room air I&O (Last 24 Hrs): Intake and Output Totals x24h 01/08/19 01/09/19 01/10/19 23:59 23:59 23:59 Intake Total 3710 1970.00 480 Output Total 1080 1175 1250 Balance 2630 795.00 -770 General: Alert, Oriented x3 HEENT: Mucous membr. moist/pink Neck: Supple, No JVD Neuro: Other (Lid lag R, hands tremulous, word finding is better.) Cardiovascular: Regular rate, No murmurs Respiratory: Other (Slight rale R base) Abdomen: Soft Extremities: No edema - Results Results: Laboratory Results WBC 8.4 x10^3/uL (4.8-10.8) 01/10/19 05:30 RBC 2.83 10^6/uL (4.20-5.40) L 01/10/19 05:30 Hgb 7.9 g/dL (12.0-16.0) L 01/10/19 05:30 Hct 24.3 % (37.0-47.0) L 01/10/19 05:30 MCV 85.8 fL (81.0-99.0) 01/10/19 05:30 MCH 27.8 pg (27.0-31.0) 01/10/19 05:30 MCHC 32.4 g/dL (32.0-36.0) 01/10/19 05:30 RDW 16.0 % (12.0-15.0) H 01/10/19 05:30 Plt Count 249 10^3/uL (130-450) 01/10/19 05:30 MPV 7.4 fL (7.9-10.8) L 01/10/19 05:30 Neut # (Auto) 6.3 10^3/uL (1.5-6.6) 01/10/19 05:30 Lymph # (Auto) 1.2 10^3/uL (1.5-3.5) L 01/10/19 05:30 [place] # (Auto) 0.8 10^3/uL (0.0-1.0) 01/10/19 05:30 Eos # (Auto) 0.1 10^3/uL (0.0-0.7) 01/10/19 05:30 Baso # (Auto) 0.0 10^3/uL (0.0-0.1) 01/10/19 05:30 Absolute Nucleated RBC 0.00 x10^3/uL 01/10/19 05:30 Nucleated RBC % 0.0 /100WBC 01/10/19 05:30 PT 11.3 secs (9.9-12.6) 01/07/19 18:25 INR 1.0 (0.8-1.2) 01/07/19 18:25 Sodium 129 mmol/L (135-145) L 01/10/19 05:30 Potassium 5.8 mmol/L (3.5-5.0) H 01/10/19 05:30 Chloride 102 mmol/L (101-111) 01/10/19 05:30 Carbon Dioxide 18 mmol/L (21-32) L 01/10/19 05:30 Anion Gap 9.0 (6-13) 01/10/19 05:30 BUN 46 mg/dL (6-20) H 01/10/19 05:30 Creatinine 1.5 mg/dL (0.4-1.0) H 01/10/19 05:30 Estimated GFR (MDRD) 33 (>89) L 01/10/19 05:30 Glucose 124 mg/dL (70-100) H 01/10/19 05:30 Uric Acid 5.8 mg/dL (2.6-7.2) 01/08/19 04:55 Calcium 8.5 mg/dL (8.5-10.3) 01/10/19 05:30 Phosphorus 4.5 mg/dL (2.5-4.6) 01/09/19 04:48 Magnesium 2.0 mg/dL (1.7-2.8) 01/10/19 05:30 Iron 26 ug/dL (28-170) L 01/08/19 04:55 TIBC 351 ug/dL (250-450) 01/08/19 04:55 % Saturation 7 % (20-50) L 01/08/19 04:55 Transferrin 251 mg/dL (192-382) 01/08/19 04:55 Total Bilirubin 0.5 mg/dL (0.2-1.0) 01/07/19 18:25 AST 72 IU/L (10-42) H 01/07/19 18:25 ALT 77 IU/L (10-60) H 01/07/19 18:25 Alkaline Phosphatase 119 IU/L (42-121) 01/07/19 18:25 Troponin I 0.04 ng/mL (<0.49) 01/08/19 04:55 B-Natriuretic Peptide 3024 pg/mL (5-100) H 01/08/19 04:55 Total Protein 7.8 g/dL (6.7-8.2) 01/07/19 18:25 Albumin 3.4 g/dL (3.2-5.5) 01/09/19 04:48 Globulin 4.0 g/dL (2.1-4.2) 01/07/19 18:25 Albumin/Globulin Ratio 1.0 (1.0-2.2) 01/07/19 18:25 Triglycerides 51 mg/dL (-149) 01/09/19 04:48 Cholesterol 128 mg/dL (-199) 01/09/19 04:48 LDL Cholesterol, Calc 72 mg/dL (-129) 01/09/19 04:48 VLDL Cholesterol 10 mg/dL 01/09/19 04:48 HDL Cholesterol 46 mg/dL (60-) L 01/09/19 04:48 LDL/HDL Ratio 1.6 (<4.4) 01/09/19 04:48 Cholesterol/HDL Ratio 2.8 (<4.4) 01/09/19 04:48 Lipase 40 U/L (22-51) 01/07/19 18:25 Urine Color YELLOW 01/08/19 09:45 Urine Clarity HAZY (CLEAR) 01/08/19 09:45 Urine pH 6.0 PH (5.0-7.5) 01/08/19 09:45 Ur Specific [place] 1.010 (1.002-1.030) 01/08/19 09:45 Urine Protein 30 mg/dL (NEGATIVE) H 01/08/19 09:45 Urine Glucose (UA) NEGATIVE mg/dL (NEGATIVE) 01/08/19 09:45 Urine Ketones NEGATIVE mg/dL (NEGATIVE) 01/08/19 09:45 Urine Occult Blood NEGATIVE (NEGATIVE) 01/08/19 09:45 Urine Nitrite NEGATIVE (NEGATIVE) 01/08/19 09:45 Urine Bilirubin NEGATIVE (NEGATIVE) 01/08/19 09:45 Urine Urobilinogen 0.2 (NORMAL) E.U./dL (NORMAL) 01/08/19 09:45 Ur Leukocyte Esterase SMALL (NEGATIVE) H 01/08/19 09:45 Urine RBC 0-5 /HPF (0-5) 01/08/19 09:45 Urine WBC >25 /HPF (0-5) H 01/08/19 09:45 Urine WBC Clumps PRESENT 01/08/19 09:45 Ur Squamous Epith Cells FEW Squamous (<= Few) 01/08/19 09:45 Urine Bacteria Many /HPF (None Seen) H 01/08/19 09:45 Urine Casts 0-2 Hyaline Casts /LPF 01/08/19 09:45 Urine Yeast PRESENT 01/08/19 09:45 Urine Culture Comments INDICATED 01/08/19 09:45 Urine Creatinine 29.7 mg/dL 01/08/19 09:45 Urine Microalbumin 24.7 mg/dL (0-300.0) 01/08/19 09:45 Microalb/Creat Ratio 831.6 ug/mg (<30.0) H 01/08/19 09:45 Stl Occult Blood (IFOB) NEGATIVE (NEGATIVE) 01/09/19 16:00 Hepatitis A IgM Ab NON-REACTIVE (NON-REACTIVE) 01/08/19 04:55 Hep Bs Antigen NON-REACTIVE (NON-REACTIVE) 01/08/19 04:55 Hep B Core IgM Ab NON-REACTIVE (NON-REACTIVE) 01/08/19 04:55 Hepatitis C Antibody NON-REACTIVE (NON-REACTIVE) 01/08/19 04:55 Hep C Ab Signal/Cutoff 0.00 (<1.00) 01/08/19 04:55 MRSA Surveill Initial NEGATIVE (NEGATIVE) 01/07/19 21:30
[2019-01-10] MEDS: FUROSEMIDE 40 MG TABLET PO SCH (18:42)
[2019-01-10] MEDS ORDERED: ATORVASTATIN 10 MG TABLET PO SCH (21:00)
[2019-01-11] MEDS: SODIUM CHLORIDE FLUSH 0.9% 10 ML SYRINGE IVP SCH ×2 (04:59→08:27)
[2019-01-11] MEDS: FUROSEMIDE 40 MG TABLET PO SCH (06:00)
[2019-01-11] MEDS: SODIUM BICARBONATE 650 MG TABLET PO SCH (06:00)
[2019-01-11 06:11] LABS: BASOPHILS # (AUTO) 0.1 10^3/uL (0.0-0.1); EOSINOPHILS # (AUTO) 0.2 10^3/uL (0.0-0.7); EOSINOPHILS % (AUTO) 1.5 %; HGB - HEMOGLOBIN 8.5 g/dL (12.0-16.0); LYMPHOCYTES # (AUTO) 1.2 10^3/uL (1.5-3.5); LYMPHOCYTES % (AUTO) 11.9 %; MEAN CORPUSCULAR HEMOGLOBIN 28.3 pg (27.0-31.0); MEAN CORPUSCULAR HGB CONC 33.9 g/dL (32.0-36.0); MEAN CORPUSCULAR VOLUME 83.5 fL (81.0-99.0); MEAN PLATELET VOLUME 7.5 fL (7.9-10.8); MONOCYTES # (AUTO) 0.8 10^3/uL (0.0-1.0); MONOCYTES % (AUTO) 8.1 %; NEUTROPHILS # (AUTO) 8.1 10^3/uL (1.5-6.6); NEUTROPHILS % (AUTO) 77.5 %; PLT - PLATELET COUNT 275 10^3/uL (130-450); RED CELL DISTRIBUTION WIDTH 16.5 % (12.0-15.0); WHITE BLOOD COUNT 10.4 x10^3/uL (4.8-10.8)
[2019-01-11 06:13] LABS: CALCIUM 8.9 mg/dL (8.5-10.3); CREATININE 1.4 mg/dL (0.4-1.0)
[2019-01-11] MEDS ORDERED: LABETALOL 20 MG/4 ML SYRINGE IVP PRN (06:48)
--- NOTE | 2019-01-11 07:59 | Discharge Plan ---
Discharge Plan Disposition: Home, Self Care Condition: Stable Prescriptions: Aspirin EC [Ecotrin] 325 mg PO DAILY #30 tablet Furosemide [Lasix] 40 mg PO MOWEFR #15 tablet hydrALAZINE [Apresoline] 50 mg PO BID #60 tablet Metoprolol Succinate [Toprol Xl] 50 mg PO BID #60 tab.er.24h Sodium Bicarbonate 650 mg PO DAILY #30 tablet Diet: Low Sodium (also Low Potassium, Renal Diet) Activity Restrictions: Activity as Tolerated Shower Restrictions: No Assistance Devices: Walker Instruction Topics: Kidney Failure Self Care, Kidney Disease Take Iron Anemia, Kidney Disease Potassium, Kidney Disease Protein Amount, Kidney Disease Fluids, Kidney Disease Eat Less Sodium Additional Instructions or Follow Up instructions: You were admitted for a stroke, severely elevated blood pressure and worsening kidney failure. Your medications have been changed for blood pressure and kidney disease management. Please follow the new list of medications and the dietary recommendations. You should see your PCP in 5-7 days for a blood test of your potassium and kidney function and to get a referral to a Renal Specialist ([facility]). If you have new or worsening symptoms, come to the ER. No Smoking: If you smoke, Please STOP! Call for help. Follow-up with: Margret Christianson DO [Primary Care Provider] -
[2019-01-11] MEDS: ALBUTEROL NEB 2.5 MG/3 ML INH PRN (08:02)
[2019-01-11] MEDS: FERROUS GLUCONATE 324 MG TABLET PO SCH (08:26)
[2019-01-11] MEDS: TAMSULOSIN 0.4 MG CAPSULE PO SCH (08:26)
[2019-01-11] MEDS: POLYETHYLENE GLYCOL 3350 17 GM PACKET PO SCH (08:26)
[2019-01-11] MEDS: METOPROLOL SUCCINATE 25 MG TABLET PO SCH (08:26)
[2019-01-11] MEDS: CHOLECALCIFEROL 1,000 UNIT TABLET PO SCH (08:26)
[2019-01-11] MEDS: DOCUSATE SODIUM 250 MG CAPSULE PO SCH (08:26)
[2019-01-11] MEDS: SENNA 8.6 MG TABLET PO SCH (08:26)
[2019-01-11] MEDS: ASPIRIN EC 325 MG TABLET PO SCH (08:26)
[2019-01-11] MEDS: hydrALAZINE 25 MG TABLET PO SCH (08:26)
[2019-01-11] MEDS: guaiFENesin 600 MG TABLET PO PRN (08:26)
[2019-01-11 08:32] VITALS: BP 212/83
--- NOTE | 2019-01-11 19:52 | DISCHARGE SUMMARY ---
Physician: Jessica Dinero MD DATE OF ADMISSION: 01/08/2019 DATE OF DISCHARGE: 01/11/2019 HISTORY OF PRESENT ILLNESS: This is an 88-year-old white female with a history of hypertension, chronic diastolic heart failure, remote bioprosthetic aortic valve replacement, prior TIA and stroke, anxiety and depression, peripheral vascular disease with history of carotid endarterectomy. The patient has needed hospitalization 4 times in the past 6 weeks after she had elective surgery of the right knee. There were admissions for volume overload, worsening renal function, pyelonephritis with new abnormal finding on kidney imaging, also urinary retention, for which she saw a urologist, and even needed 1 week of an outpatient Biggs catheter bladder drainage. The patient presented this time with acute onset of inability to find words and was found to be severely hypertensive with systolic blood pressure of 240. She was first placed in observation but transferred to inpatient status for management of her diagnoses. HOSPITAL COURSE AND DISCHARGE DIAGNOSES 1. Acute lacunar stroke. At admission, the patient had a CT of the brain that showed old stroke findings. Then she underwent a brain MRI that showed a new lacunar stroke on the left. Her symptoms of word finding difficulty improved by the next day and nearly completely cleared by the second day of this hospitalization. Because she has had admissions for TIA workup in the last several months, has had Echos and carotid Dopplers, these were not repeated currently. Her hypertensive urgency was felt to be the etiology of the current problem. Her blood pressure was managed with medication changes, allowing for permissive hypertension in the range of 160-180 systolic in order to prevent cerebral hypoperfusion. The patient was seen by Physical Therapy and did report she still had poor strength from the knee replacement, but she was progressing well enough to not qualify for SNF physical therapy discharge or even home health PT. She was advised to resume her outpatient PT program for further improvement (see below). 2. Acute renal failure superimposed on stage 2 chronic kidney disease. Patient's baseline creatinine lately has been approximately 2.0. At admission, she had a BUN of 36 and creatinine of 1.1 which worsened, however, over several days to 46 and 1.9. She was put on gentle IV hydration at this point, and her nephrotoxic medicines were stopped (the ARB and spironolactone). After 1-2 days of hydration, the BUN was 43 with creatinine of 1.7, but she developed hyperkalemia that needed attention. Her blood pressure medications were therefore chosen for benefiting her renal function and were changed from her preadmission meds (see below). She also required sodium bicarbonate started here to benefit her renal function as well. The patient had repeat imaging of her kidneys along with ultrasound to look for renal artery stenosis. These findings showed nearly no perfusion to the right kidney, and atrophic right kidney. The day before discharge, she was put on intermittent oral Lasix (planned for Tuesday, Tuesday, Tuesday) to prevent volume overload, and this combination resulted in her discharge renal function to be at its best: BUN 46, creatinine 1.4. She was strongly advised to establish with a Head Strength And Conditioning Coach for further evaluation and management of her CKD and the abnormal right kidney. She was advised to have a low-salt diet in addition to a low potassium and low protein diet for renal benefit. 3. Urinary retention. The records showed that she had previous retention requiring discharge with 1 week of Biggs catheter in place and then had an outpatient urology appointment. Those records were obtained for review, and the Urologist thought that her retention was from being immobilized due to recent frequent hospitalizations. He had put her on Flomax ands she passed a voiding study in his office. On this presentation here, there was concern of urinary retention, and she had a Biggs in place for 3 days. It was removed after review of the urology records. She had no difficulty with passing urine or bladder distention. She was continued with the Flomax dosing. 4. Hyperkalemia. Potassium of 6.0 was treated with insulin IV and D50 amp IV push. The potassium improved to 5.8, then 5.5, and then hyperkalemia resolved as the spironolactone and ARB were stopped. 5. Malignant hypertension. At presentation, blood pressure was 240/94 and was in the 150s to 170s on subsequent measurements. She required ICU stay for an IV nicardipine drip. After this was stopped, she was transitioned to p.o. hydralazine and p.o. beta blockers for blood pressure control, and the day before discharge was started on Lasix. She was told to stop and not use the home tablets of spironolactone and losartan. Further HTN management with a Head Strength And Conditioning Coach is advised, and she is very interested in this. 6. Diastolic congestive heart failure with preserved left ventricular ejection fraction, [place] Heart Association class II, AHA stage B. On the last recent admission, the patient had an Echo showing LVH with preserved LV contractility and diastolic dysfunction present. The patient's reported that the patient "tends to retain fluid." She was therefore started on a diuretic using Lasix 40 mg p.o. planned for only on Tuesday, Tuesday, Tuesday. She knows about a low salt diet. 7. History of aortic valve replacement. On the last admission, the prosthetic aortic valve was found to be normally functioning by Echo. 8. Hyponatremia. This has been a chronic problem for the patient over several weeks and several admissions. Her sodium levels of 128-130 may have been from her spironolactone use or a sign of her chronic diastolic heart failure. With the change of medications for blood pressure as described above, her discharge sodium was 132. She also required sodium bicarbonate started here to benefit her renal function as well. 9. Iron deficiency anemia. Her admission CBC showed a hemoglobin of 9.3, which dropped to 8.0 and 7.9 after her gentle IV hydration early in the hospitalization. Stools were checked and were guaiac negative, but there was a remote history of GI bleed. Iron studies were done that showed iron deficiency with a total iron of 26, TIBC of 35 and percent saturation of only 7%. She had been on ferrous sulfate at home; here, she was on ferrous gluconate. She was advised to resume ferrous sulfate at discharge. 10. Knee joint replacement status on the right. Patient reports that she never had a complete course of physical therapy after the right knee surgery and there was intermittently some pain there. Continued outpatient rehab was advised for this. LABORATORY AND IMAGING: Reviewed and summarized above. ALLERGIES 1. SULFA. 2. CELECOXIB. 3. POLLEN EXTRACT. 4. DARVON. 5. ALFUZOSIN AND HYDROCODONE, WHICH CAUSE NAUSEA. MEDICATIONS AT THE TIME OF DISCHARGE 1. Vitamin D3 2000 units daily. 2. Iron sulfate 325 mg daily. 3. Guaifenesin 400 mg q.i.d. p.r.n. cough. 4. Protonix 40 mg daily. 5. Adult-dose aspirin daily (her baby aspirin dose was increased to adult dose; no Plavix was started because of the anemia with history of GI bleeds). 6. Lasix 40 mg p.o. on Tuesday, Tuesday, Tuesday. 7. Hydralazine 50 mg p.o. b.i.d. 8. Toprol-XL 50 mg p.o. b.i.d. 9. Multivitamin daily. 10. Crestor 10 mg every evening. 11. Sodium bicarbonate 650 mg p.o. daily. 12. Flomax 0.4 mg p.o. daily. CONDITION AT DISCHARGE: Stable. PHYSICAL EXAMINATION VITAL SIGNS: Blood pressure 185/74, heart rate 84 in sinus rhythm, afebrile, room air saturation 97%. HEENT: Revealed right-sided squinting of the eye or possible lid lag. Oral mucosa moist. NECK: Without JVD or carotid bruits. CHEST: Bibasilar crackles, only on the left. HEART: Heart sounds had normal S1, S2, and a 2-3/6 systolic murmur in the aortic area (old murmur). ABDOMEN: Soft and benign. No bruits. EXTREMITIES: Legs with trace pedal edema, right greater than left, and the right knee has a recent scar, clean and dry. NEUROLOGIC: She has a tremor intermittently of her hands. Her speech is normal. She does have the right eye squint or droop; no other focal findings. CODE STATUS: FULL CODE. FOLLOWUP: She was advised to see her PCP within a week for BUN and creatinine and potassium blood checks, intermittent hemoglobin checks, and for a referral to a Head Strength And Conditioning Coach for management of the atrophic right kidney and new chronic renal disease and hypertension. Time required to complete this entire discharge, chart review, dictation, discussion with patient and and answering their questions: 60 minutes. cc: Margret Christianson DO TD: 01/11/2019 19:10 CHRISTY
== END 2019-01-11 10:44 | disposition home or self-care (01) | DRG 65 ==
LOC: EDUNIT# → ED 18:15 → ICU 20:05 → OBSVTOIN 01-08 17:08 → MS2 01-09 17:51 → MS3 01-09 17:52 → MS2 01-09 17:53
PROVIDERS: ADMIT Family Medicine; ATTEND Internal Medicine
DX: G45.9 Transient cerebral ischemic attack, unspecified (principal); I63.81 Other cerebral infarction due to occlusion or stenosis of small artery; I13.0 Hypertensive heart and chronic kidney disease with heart failure and stage 1 through stage 4 chronic kidney disease, or unspecified chronic kidney disease; I50.32 Chronic diastolic (congestive) heart failure; N17.9 Acute kidney failure, unspecified; E87.1 Hypo-osmolality and hyponatremia; Z79.82 Long term (current) use of aspirin; Z79.02 Long term (current) use of antithrombotics/antiplatelets; R01.1 Cardiac murmur, unspecified; Z95.2 Presence of prosthetic heart valve; K21.9 Gastro-esophageal reflux disease without esophagitis; M19.90 Unspecified osteoarthritis, unspecified site; Z96.642 Presence of left artificial hip joint; Z86.73 Personal history of transient ischemic attack (TIA), and cerebral infarction without residual deficits; Z90.710 Acquired absence of both cervix and uterus; N18.2 Chronic kidney disease, stage 2 (mild); Z85.828 Personal history of other malignant neoplasm of skin; Z88.2 Allergy status to sulfonamides; Z96.651 Presence of right artificial knee joint; I16.0 Hypertensive urgency; D50.9 Iron deficiency anemia, unspecified; R33.9 Retention of urine, unspecified; R79.89 Other specified abnormal findings of blood chemistry; I48.91 Unspecified atrial fibrillation; I34.0 Nonrheumatic mitral (valve) insufficiency; J45.909 Unspecified asthma, uncomplicated; I73.00 Raynaud's syndrome without gangrene; Z85.3 Personal history of malignant neoplasm of breast; Z90.10 Acquired absence of unspecified breast and nipple; Z92.21 Personal history of antineoplastic chemotherapy; H54.7 Unspecified visual loss; M06.9 Rheumatoid arthritis, unspecified; R13.10 Dysphagia, unspecified; E87.5 Hyperkalemia; F41.9 Anxiety disorder, unspecified; F32.9 Major depressive disorder, single episode, unspecified; I73.9 Peripheral vascular disease, unspecified
CPT/HCPCS: 36415; 70450; 70551; 71045; 76770; 80048; 80053; 80061; 80069; 80074; 81001; 82043; 82274; 82570; 83540; 83690; 83721; 83735; 83880; 84100; 84466; 84484; 84550; 85025; 85610; 87086; 87150; 93005; 93975; 94640; 94664; 96361; 96365; 96366; 96375; 99285; 99291

== ENCOUNTER 2019-01-15 08:00 | Outpatient (CLI) | payer MEDICARE, OTHER ==
[2019-01-15 19:01] LABS: BASOPHILS # (AUTO) 0.1 10^3/uL (0.0-0.1); BASOPHILS % (AUTO) 0.6 %; EOSINOPHILS # (AUTO) 0.1 10^3/uL (0.0-0.7); EOSINOPHILS % (AUTO) 1.4 %; HGB - HEMOGLOBIN 9.1 g/dL (12.0-16.0); LYMPHOCYTES # (AUTO) 1.1 10^3/uL (1.5-3.5); LYMPHOCYTES % (AUTO) 11.6 %; MEAN CORPUSCULAR HEMOGLOBIN 28.3 pg (27.0-31.0); MEAN CORPUSCULAR HGB CONC 32.6 g/dL (32.0-36.0); MEAN CORPUSCULAR VOLUME 86.9 fL (81.0-99.0); MONOCYTES # (AUTO) 0.8 10^3/uL (0.0-1.0); MONOCYTES % (AUTO) 8.8 %; NEUTROPHILS # (AUTO) 7.1 10^3/uL (1.5-6.6); NEUTROPHILS % (AUTO) 77.6 %; PLT - PLATELET COUNT 249 10^3/uL (130-450); RED BLOOD COUNT 3.22 10^6/uL (4.20-5.40); RED CELL DISTRIBUTION WIDTH 16.2 % (12.0-15.0); WHITE BLOOD COUNT 9.1 x10^3/uL (4.8-10.8)
[2019-01-15 19:24] LABS: ALBUMIN 3.8 g/dL (3.2-5.5); BILIRUBIN,TOTAL 0.6 mg/dL (0.2-1.0); CALCIUM 8.9 mg/dL (8.5-10.3); TOTAL PROTEIN 7.5 g/dL (6.7-8.2)
== END 2019-01-15 23:59 | disposition home or self-care (01) ==
LOC: LAB.WCP 08:00
PROVIDERS: ATTEND Nurse Practitioner
DX: N18.3 Chronic kidney disease, stage 3 (moderate) (principal); D64.9 Anemia, unspecified
CPT/HCPCS: 36415; 80053; 85025

== ENCOUNTER 2019-01-29 08:00 | Outpatient (CLI) | payer MEDICARE, OTHER ==
[2019-01-29 20:37] LABS: CREATININE,URINE 22.9 mg/dL
[2019-01-29 20:38] LABS: TOTAL PROTEIN,URINE TIMED < 6 mg/dL
== END 2019-01-29 23:59 ==
LOC: LAB.WCP 08:00
PROVIDERS: ATTEND Internal Medicine Nephrology
DX: R80.9 Proteinuria, unspecified (principal)
CPT/HCPCS: 82570; 84156

== ENCOUNTER 2019-02-05 08:00 | Outpatient (CLI) | payer MEDICARE, OTHER ==
[2019-02-05 13:36] LABS: CALCIUM 9.1 mg/dL (8.5-10.3); CREATININE 0.9 mg/dL (0.4-1.0); PHOSPHORUS 3.6 mg/dL (2.5-4.6)
[2019-02-05 19:01] LABS: BASOPHILS # (AUTO) 0.1 10^3/uL (0.0-0.1); BASOPHILS % (AUTO) 1.1 %; EOSINOPHILS # (AUTO) 0.2 10^3/uL (0.0-0.7); EOSINOPHILS % (AUTO) 2.6 %; HGB - HEMOGLOBIN 9.9 g/dL (12.0-16.0); LYMPHOCYTES # (AUTO) 1.4 10^3/uL (1.5-3.5); LYMPHOCYTES % (AUTO) 20.8 %; MEAN CORPUSCULAR HEMOGLOBIN 27.3 pg (27.0-31.0); MEAN CORPUSCULAR HGB CONC 31.7 g/dL (32.0-36.0); MEAN CORPUSCULAR VOLUME 86.2 fL (81.0-99.0); MEAN PLATELET VOLUME 8.4 fL (7.9-10.8); MONOCYTES # (AUTO) 0.6 10^3/uL (0.0-1.0); MONOCYTES % (AUTO) 9.7 %; NEUTROPHILS # (AUTO) 4.3 10^3/uL (1.5-6.6); NEUTROPHILS % (AUTO) 65.8 %; PLT - PLATELET COUNT 243 10^3/uL (130-450); RED BLOOD COUNT 3.63 10^6/uL (4.20-5.40); RED CELL DISTRIBUTION WIDTH 16.9 % (12.0-15.0); WHITE BLOOD COUNT 6.6 x10^3/uL (4.8-10.8)
[2019-02-08 23:08] LABS: ALBUMIN 3.4 g/dL (3.8-4.8); ALPHA 1 GLOBULIN 0.4 g/dL (0.2-0.3); ALPHA 2 GLOBULIN 0.8 g/dL (0.5-0.9); BETA 1 GLOBULIN 0.5 g/dL (0.4-0.6); BETA 2 GLOBULIN 0.4 g/dL (0.2-0.5); GAMMA GLOBULIN 1.2 g/dL (0.8-1.7)
== END 2019-02-05 23:59 | disposition home or self-care (01) ==
LOC: LAB.WCP 08:00
PROVIDERS: ATTEND Internal Medicine Nephrology
DX: N05.9 Unspecified nephritic syndrome with unspecified morphologic changes (principal); I50.32 Chronic diastolic (congestive) heart failure; D70.9 Neutropenia, unspecified; D63.1 Anemia in chronic kidney disease; D47.2 Monoclonal gammopathy; E83.30 Disorder of phosphorus metabolism, unspecified; N25.81 Secondary hyperparathyroidism of renal origin
CPT/HCPCS: 36415; 80048; 81599; 83880; 83970; 84100; 84155; 84165; 85025; 86334

== ENCOUNTER 2019-03-20 10:11 | Outpatient (CLI) | payer MEDICARE, OTHER ==
--- NOTE | 2019-03-20 11:38 | XRAY Report ---
Reason: SHORTNESS OF BREATH/CHF Procedure Date: 03/20/2019 Accession Number: [id number] / [id number] Procedure: [facility]CP - Chest 2 View X-Ray CPT Code: 33594 FULL RESULT: EXAM: CHEST RADIOGRAPHY EXAM DATE: 03/20/2019 10:25 AM. CLINICAL HISTORY: Shortness of breath/CHF. COMPARISON: CHEST 1 VIEW 01/09/2019 11:36 PM. TECHNIQUE: 2 views. FINDINGS: Lungs/Pleura: No focal opacities evident. No pleural effusion. No pneumothorax. Prominent lung volumes with mild flattening of the diaphragms. Mediastinum: The patient is status post median sternotomy with coronary artery reanastomosis and prosthetic valve ring, possibly prior ascending aortic repair. The cardiac silhouette is otherwise stable including aortic arch calcifications and mild borderline cardiomegaly. Other: The bones are qualitatively osteopenic; this limits evaluation for underlying fractures or masses. IMPRESSION: No acute cardiopulmonary abnormality, overall radiographic stability. RADIA
== END 2019-03-20 10:12 | disposition home or self-care (01) ==
LOC: DI.WCP 10:11
PROVIDERS: ATTEND Physician Assistant
DX: I50.9 Heart failure, unspecified (principal); R06.02 Shortness of breath
CPT/HCPCS: 71046

== ENCOUNTER 2019-04-12 10:31 | Outpatient (CLI) | payer MEDICARE, OTHER ==
[2019-04-12 13:07] LABS: BASOPHILS # (AUTO) 0.1 10^3/uL (0.0-0.1); BASOPHILS % (AUTO) 1.9 %; EOSINOPHILS # (AUTO) 0.3 10^3/uL (0.0-0.7); EOSINOPHILS % (AUTO) 4.7 %; HGB - HEMOGLOBIN 10.5 g/dL (12.0-16.0); LYMPHOCYTES % (AUTO) 16.8 %; MEAN CORPUSCULAR HEMOGLOBIN 27.6 pg (27.0-31.0); MEAN CORPUSCULAR HGB CONC 33.2 g/dL (32.0-36.0); MEAN CORPUSCULAR VOLUME 83.1 fL (81.0-99.0); MEAN PLATELET VOLUME 8.9 fL (7.9-10.8); MONOCYTES # (AUTO) 0.6 10^3/uL (0.0-1.0); MONOCYTES % (AUTO) 10.6 %; NEUTROPHILS # (AUTO) 3.8 10^3/uL (1.5-6.6); PLT - PLATELET COUNT 166 10^3/uL (130-450); RED BLOOD COUNT 3.82 10^6/uL (4.20-5.40); RED CELL DISTRIBUTION WIDTH 17.2 % (12.0-15.0); WHITE BLOOD COUNT 5.8 x10^3/uL (4.8-10.8)
[2019-04-12 13:38] LABS: ALBUMIN 3.6 g/dL (3.2-5.5); BILIRUBIN,TOTAL 0.9 mg/dL (0.2-1.0); CALCIUM 9.4 mg/dL (8.5-10.3); CREATININE 1.3 mg/dL (0.4-1.0); FERRITIN 71.4 ng/mL (11.0-306.8); TOTAL PROTEIN 7.2 g/dL (6.7-8.2)
== END 2019-04-12 23:59 | disposition home or self-care (01) ==
LOC: LAB.WCP 10:31
PROVIDERS: ATTEND Family Medicine
DX: I50.9 Heart failure, unspecified (principal); D64.9 Anemia, unspecified
CPT/HCPCS: 36415; 80053; 82607; 82728; 83540; 84466; 85025

== ENCOUNTER 2019-04-26 09:13 | Outpatient (CLI) | payer MEDICARE, OTHER ==
--- NOTE | 2019-04-26 13:02 | DEXA Report ---
Reason: BONE DISORDER Procedure Date: 04/26/2019 Accession Number: [id number] / [id number] Procedure: DEX - Dexa Spine and/or Hip CPT Code: FULL RESULT: EXAM: Dexa Spine and/or Hip DATE: 04/26/2019 10:29 AM CLINICAL HISTORY: Postmenopausal female. Left hip replacement. TECHNIQUE: Dual energy x-ray absorptiometry (DXA) was performed on a Surgient System. Regions measured are the AP Spine, femoral neck, and if needed forearm. COMPARISON: 08/10/2013 In accordance with the International Society for Clinical Densitometry (ISCD) guidelines, data from previous exams may be reanalyzed using current recommendations and techniques. This is done to allow a more accurate basis for comparison with the current study. FINDINGS: The data for the lumbar spine is as follows: BMD (g/cm/cm) T-SCORE Z-SCORE REGION L1 1.118 -0.1 2.0 L2 1.294 0.8 2.9 L3 1.372 1.4 3.6 L4 1.408 1.7 3.9 TOTAL 1.312 1.1 3.2 NOTE: All evaluable vertebrae are used for classification The data for the right hip is as follows: BMD (g/cm/cm) T-SCORE Z-SCORE REGION Neck 0.747 -2.1 0.5 TOTAL 0.735 -2.2 0.3 NOTE: The femoral neck or total proximal femur, whichever is lowest, is used for classification. IMPRESSION: THE WHO CLASSIFICATION BASED ON THE INTERNATIONAL REFERENCE STANDARD IS OSTEOPENIA (REFERENCE RIGHT HIP TOTAL BONE MINERAL DENSITY). THE FRACTURE RISK IS INCREASED. RECOMMENDATION: Patients with diagnosis of osteoporosis or osteopenia should have regular bone mineral density assessment. For those eligible for Medicare, routine testing is allowed once every 2 years. Testing frequency can be increased for patients who have rapidly progressing disease or for those who are receiving medical therapy to restore bone mass. COMMENT: World Health Organization (WHO) definitions for osteoporosis and osteopenia: NORMAL BMD: T-score at -1.0 or higher, fracture risk is low OSTEOPENIA BMD: T-score between -1.0 and -2.5, fracture risk is increased. OSTEOPOROSIS BMD: T-score at -2.5 or lower, fracture risk is high. National Osteoporosis Foundation recommends: 1. Obtain adequate dietary calcium (at least 1200 mg per day) and vitamin D (400-800 international units per day). 2. Participate, as appropriate, in regular weightbearing and muscle-strengthening exercise. 3. Avoid tobacco use and reduce alcohol and caffeine intake. 4. For more detailed information see the website at www.NOF.org.
== END 2019-04-26 09:14 | disposition home or self-care (01) ==
LOC: DI 09:13
PROVIDERS: ATTEND Family Medicine
DX: M85.88 Other specified disorders of bone density and structure, other site (principal)
CPT/HCPCS: 77080

== ENCOUNTER 2019-04-26 09:14 | Outpatient (CLI) | payer MEDICARE, OTHER ==
--- NOTE | 2019-04-26 12:04 | Mammography Report ---
Reason: SCREENING MAMMO Procedure Date: 04/26/2019 Accession Number: [id number] / [id number] Procedure: [facility] - Screening Mammo Right w/Gildardo CPT Code: FULL RESULT: EXAM: Screening Mammo Right w/Gildardo DATE: 04/26/2019 10:26 AM CLINICAL HISTORY: Status post left mastectomy and chemotherapy for cancer TECHNIQUE: (B) - Bilateral CC and MLO views were obtained. COMPARISON: 05/16/2015, 04/30/2014, 04/04/2013 and 12/01/2010 PARENCHYMAL PATTERN: (A) - The breasts demonstrate scattered fibroglandular densities bilaterally. FINDINGS: No significant interval change. Extensive vascular calcifications as before. There are no suspicious masses, calcifications, or areas of distortion. IMPRESSION: Negative examination. BI-RADS category 1. RECOMMENDATION: (ANNUAL) - Recommend routine annual screening mammography. BI-RADS CATEGORY: (1) - Negative. STANDARD QUALIFYING STATEMENTS: 1. This examination was not reviewed with the aid of Computer-Aided Detection (CAD). 2. A negative or benign imaging report should not preclude biopsy if clinically suspicious findings are present. 3. Dense breasts may obscure an underlying neoplasm. 4. This examination was reviewed with the aid of 3D breast imaging (tomosynthesis).
== END 2019-04-26 09:15 | disposition home or self-care (01) ==
LOC: DI 09:14
PROVIDERS: ATTEND Family Medicine
DX: Z12.31 Encounter for screening mammogram for malignant neoplasm of breast (principal); Z85.3 Personal history of malignant neoplasm of breast; Z90.12 Acquired absence of left breast and nipple
CPT/HCPCS: 77063

== ENCOUNTER 2019-05-21 12:20 | Emergency (ER) | payer MEDICARE, OTHER ==
--- NOTE | 2019-05-21 14:24 | Ultrasound Report ---
Reason: LLE swelling s/p car ride Procedure Date: 05/21/2019 Accession Number: [id number] / [id number] Procedure: US - Duplex Ext Veins Left CPT Code: FULL RESULT: EXAM: LEFT LOWER EXTREMITY VENOUS ULTRASOUND EXAM DATE: 05/21/2019 01:04 PM. CLINICAL HISTORY: Left lower extremity swelling status post 5-hour car ride. COMPARISON: DUPLEX EXT VEINS LEFT 04/29/2018 12:38 PM. TECHNIQUE: Real-time sonographic vascular imaging was performed by the remote computer terminal operator through the lower extremity utilizing both color-flow and Doppler spectral analysis. Multiple cash applications representative static images were saved for review. FINDINGS: Common Femoral Vein (CFV): Normal. CFV-GSV Junction: Normal. Profunda Femoral Vein (PFV): Normal. Femoral Vein (FV) Prox: Normal. Femoral Vein (FV) Mid: Normal. Femoral Vein (FV) Dist: Normal. Popliteal Vein: Normal. Posterior Tibial Veins: Normal. Peroneal Veins: Normal. Other: None. IMPRESSION: No evidence for deep venous thrombosis. RADIA
--- NOTE | 2019-05-21 14:30 | ED Physician Documentation ---
PD HPI LOWER EXT INJURY - Stated complaint Stated Complaint: LEG PX - Chief complaint Chief Complaint: Ext Problem - History obtained from History obtained from: Patient - History of Present Illness PD HPI LOW EXT INJURY LOCATION: Left, Hip, Lower leg, Ankle Type of injury: Other (She and her drove over to [employer] and was there for a week and drove back. She noticed some swelling in her legs on the drive over and had pain in the left leg while there. She states the pain is some in the lower leg but also at the left lateral hip. The swelling continued and worsening on the drive back yesterday and today she states both legs but more on the left feel tight and cramping. She is concerned about blood clots. There is no particular injury. She is not doing excessive activity or walking.). No: Fall, Twist Timing - onset: How many weeks ago (1) Timing - duration: Weeks (1) Timing - details: Gradual onset, Still present (worse the past day), Waxing and waning Worsened by: Palpating (the lower leg and also the lateral left hip), Other (walking) Associated symptoms: Swelling. No: Weakness, Numbness Contributing factors: No: Anticoagulated Similar symptoms before: Has not had sx before Recently seen: Not recently seen Review of Systems Constitutional: denies: Fever, Chills, Myalgias Nose: denies: Rhinorrhea / runny nose, Congestion Throat: denies: Sore throat Respiratory: denies: Cough GI: denies: Abdominal Pain, Nausea, Vomiting, Diarrhea Skin: denies: Rash, Lesions Musculoskeletal: reports: Extremity swelling Neurologic: denies: Focal weakness PD PAST MEDICAL HISTORY - Past Medical History Cardiovascular: Hypertension, High cholesterol, Atrial fibrillation, Murmur, Valve disorder Respiratory: Asthma Neuro: CVA, TIA (with carotid endarterectomy 1994. 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 dopplers done regularly and neg. N/V/dizziness 07/25/11. MRA w segmental stenosis,prox intradural segmet of right vertebral. 50%. Carotids open. MRI showed some old disease in crebellar hemispheres bilaterally as well as what was seen on CT. 02/07/14 weak LLE and admitted for TIA. MRI unchanged. Seen by Neurology 03/14/14 and no changed made. To be on Statin, ASA, Plavix. ), Other (Left lower quadrant hemianopsia and repeat MRI 10/20/11 compared to TIA MRI 06/2011 and no change) Endocrine/Autoimmune: Other GI: GERD (and dysphagia starting ~ 2010. Food stuck. Seen by [facility] Chris Barba MD. EGD 08/26/17 w sidely open patent Schatzki ring, Barium swallow w Zenker's diverticulum, small HH w prom B ring.), Hemorrhoids, Other (Fecal occult blood positive stools November 2018. 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 SOFTENER SERVICER: Hysterectomy, Mastectomy Cardiovascular: Valve replacement, Other HEENT: Cataracts (right eye 10/16/12), Tonsil/Adenoidectomy, Other (Blepharoplasty 11/25/15) Derm: Skin grafts, Skin cancer surgery - Present Medications Home Medications: Ambulatory Orders Medication Instructions Recorded Confirmed Multivit,Calc,Mins/Folic Acid 200 mcg PO DAILY #30 tablet 11/20/18 01/07/19 [One-A-Day Proactive 65 Plus Tb] Rosuvastatin Calcium [Crestor] 10 mg PO DAILY #30 tablet 11/20/18 01/07/19 Pantoprazole [Protonix] 40 mg PO DAILY PRN 12/12/18 01/07/19 Cholecalciferol (Vitamin D3) 2,000 unit PO DAILY 01/08/19 01/08/19 [Vitamin D3] Ferrous Sulfate 325 mg PO DAILYWM 01/08/19 01/08/19 guaiFENesin [Guaifenesin] 400 mg PO Q4H PRN 01/08/19 01/08/19 Aspirin EC [Ecotrin] 325 mg PO DAILY #30 tablet 01/11/19 Furosemide [Lasix] 40 mg PO MOWEFR #15 tablet 01/11/19 Metoprolol Succinate [Toprol Xl] 50 mg PO BID #60 tab.er.24h 01/11/19 Sodium Bicarbonate 650 mg PO DAILY #30 tablet 01/11/19 Tamsulosin [Flomax] 0.4 mg PO DAILY capsule 01/11/19 hydrALAZINE [Apresoline] 50 mg PO BID #60 tablet 01/11/19 - Allergies Allergies/Adverse Reactions: Allergies Allergy/AdvReac Type Severity Reaction Status Date / Time Sulfa (Sulfonamide Allergy Intermediate Rash Verified 01/07/19 20:11 Antibiotics) celecoxib [From Celebrex] Allergy Unknown Verified 01/07/19 20:11 pollen extracts Allergy Unknown Verified 01/07/19 20:11 propoxyphene [From Darvon] Allergy Unknown Verified 01/07/19 20:11 alfuzosin AdvReac Intermediate Nausea/Vomi Verified 01/08/19 11:11 ting/Diarrh ea hydrocodone AdvReac Nausea Verified 01/07/19 20:11 - Social History Does the pt smoke?: No Smoking Status: Never smoker Does the pt drink ETOH?: No Does the pt have substance abuse?: No - Immunizations Immunizations are current?: Yes - POLST Patient has POLST: No POLST Status: Full Code PD ED PE NORMAL - Vitals Vital signs reviewed: Yes - General General: Alert and oriented X 3, No acute distress (seems uncomfortable when standing up.), Well developed/nourished - Cardiac Cardiac: RRR, No murmur - Respiratory Respiratory: Clear bilaterally - Abdomen Abdomen: Soft, Non tender - Back Back: No CVA TTP, No spinal TTP - Derm Derm: Normal color, Warm and dry - Extremities Extremities: Other (There is some edema in both lower legs from the knees down but a little bit more on the left side. There is tenderness to palpation in the left calf area. There is no skin sores, redness, warmth. There is focal tenderness over the left lateral hip at the greater trochanteric bursa. There is no redness nor rash at the area. Prior hip replacement surgical scar is noted without any redness. There is good color and capillary refill in the toes. Dorsalis pedis pulses palpable. She is able to move the toes and ankle without pain. Movement of the knee and weightbearing because pain in the upper lower leg and also the left lateral hip. There is not any tenderness nor effusion of the knee. Stress testing at knee is without ligamentous pain nor laxity.) - Neuro Neuro: Alert and oriented X 3, No motor deficit, Normal speech Results - Vitals Vitals: Vital Signs - 24 hr 05/21/19 05/21/19 12:22 15:18 Temperature 36.7 C 36.3 C L Heart Rate 56 L 53 L Respiratory 18 18 Rate Blood Pressure 173/67 H 189/87 H O2 Saturation 97 100 Oxygen O2 Source [With Activity] Room air O2 Source Room air - Rads (name of study) duplex U/S left leg Radiology: Prelim report reviewed (no DVT), See rad report PD MEDICAL DECISION MAKING - ED course Complexity details: considered differential (No DVT seen on ultrasound. She has good pulse and capillary refill so it does not seem like a vascular insufficiency. There is edema of both legs. She has clear lungs no history of CHF. I think her edema was dependent from the car ride and is having pain because of the swelling. She also has some trochanteric bursa tenderness and that is accounting for some of the pain with walking.), d/w patient Departure - Departure Disposition: 01 Home, Self Care Clinical Impression: Leg edema, Left leg pain, Trochanteric bursitis of left hip Condition: Stable Record reviewed to determine appropriate education?: Yes Follow-Up: Margret Christianson DO [Primary Care Provider] - Comments: Your blood pressure was higher today than your usual but may be related to pain. See how it is over the next several days or so. Your ultrasound does not show any signs of blood clots. I presume the edema was from your head legs hanging down during the driving. Rest and elevate them often when resting. Use your compressive socks at home over the next several days during the day (he can remove them for bedtime). Your leg pain can be from the swelling in the legs and it also seems like some element of bursitis of the hip. Use some ibuprofen twice daily for the next several days. Add Tylenol if needed for pains. Use your walker at home to help support your walking. Recheck if not improved over the next several days to week. Discharge Date/Time: 05/21/19 16:05
[2019-05-21] MEDS ORDERED: TRIAMCINOLONE 40 MG/ML VIAL IM STA (15:02)
[2019-05-21] MEDS ORDERED: ACETAMINOPHEN 325 MG TABLET PO STA (15:02)
[2019-05-21] MEDS ORDERED: traMADol 50 MG TABLET PO STA (15:02)
[2019-05-21 15:19] VITALS: BP 189/87
== END 2019-05-21 16:05 | disposition home or self-care (01) ==
LOC: ED 12:20
DX: R60.0 Localized edema (principal); M79.605 Pain in left leg; M70.62 Trochanteric bursitis, left hip; I10 Essential (primary) hypertension; Z86.73 Personal history of transient ischemic attack (TIA), and cerebral infarction without residual deficits
CPT/HCPCS: 93971; 99282; 99283; A9270

== ENCOUNTER 2019-08-24 07:28 | Emergency (ER) | payer MEDICARE, OTHER ==
[2019-08-24] MEDS ORDERED: OXYMETAZOLINE HCL 100 SPRAYS BOTTLE NAS ONE (07:56)
--- NOTE | 2019-08-24 08:36 | ED Physician Documentation ---
PD HPI HEENT - Stated complaint Stated Complaint: NOSE BLEED - Chief complaint Chief Complaint: Heent - History obtained from History obtained from: Patient, Family - History of Present Illness Timing - onset: How many hours ago (1.5) Timing - details: Still present Location: Nose Similar symptoms before: Diagnosis (Similar nosebleed occurred 2 weeks.) - Additional information Additional information: The patient is an 89-year-old female who presents with left sided nosebleed that started about one and a half hours prior to arrival soon after she from bed. It has continued to bleed since that time. She denies any traumatic injury. She reports history of similar nosebleed 2 weeks ago, but it stopped spontaneously that time. She takes one full aspirin daily, but no other anti-coagulant medication. She is treated for hypertension with metoprolol and hydralazine, but has not taken her antihypertensive medication yet this morning. 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 : Other HEENT: Chronic vision loss, Dental implants Psych: None Musculoskeletal: Osteoarthritis, Rheumatoid arthritis, Osteopenia Derm: Other - Past Surgical History Past Surgical History: Yes General: Colonoscopy Ortho: Hip replacement, Knee replacement /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: Hysterectomy, Mastectomy Cardiovascular: Valve replacement, Other HEENT: Cataracts, Tonsil/Adenoidectomy, Other Derm: Skin grafts, Skin cancer surgery - Present Medications Home Medications: Ambulatory Orders Medication Instructions Recorded Confirmed Multivit,Calc,Mins/Folic Acid 200 mcg PO DAILY #30 tablet 11/20/18 08/24/19 [One-A-Day Proactive 65 Plus Tb] Rosuvastatin Calcium [Crestor] 10 mg PO DAILY #30 tablet 11/20/18 08/24/19 Pantoprazole [Protonix] 40 mg PO DAILY PRN 12/12/18 08/24/19 Cholecalciferol (Vitamin D3) 2,000 unit PO DAILY 01/08/19 08/24/19 [Vitamin D3] Ferrous Sulfate 325 mg PO DAILYWM 01/08/19 08/24/19 Aspirin EC [Ecotrin] 325 mg PO DAILY #30 tablet 01/11/19 08/24/19 Furosemide [Lasix] 40 mg PO MOWEFR #15 tablet 01/11/19 08/24/19 Metoprolol Succinate [Toprol Xl] 50 mg PO BID #60 tab.er.24h 01/11/19 08/24/19 Sodium Bicarbonate 650 mg PO DAILY #30 tablet 01/11/19 08/24/19 hydrALAZINE [Apresoline] 50 mg PO BID #60 tablet 01/11/19 08/24/19 Albuterol 2.5 mg INH Q4H PRN 08/24/19 08/24/19 Ubidecarenone [Co Q-10] 30 mg PO 08/24/19 cephALEXin [Cephalexin] 500 mg PO TID #15 tablet 08/24/19 - Allergies Allergies/Adverse Reactions: Allergies Allergy/AdvReac Type Severity Reaction Status Date / Time Sulfa (Sulfonamide Allergy Intermediate Rash Verified 08/24/19 07:53 Antibiotics) celecoxib [From Celebrex] Allergy Unknown Verified 08/24/19 07:53 pollen extracts Allergy Unknown Verified 08/24/19 07:53 propoxyphene [From Darvon] Allergy Unknown Verified 08/24/19 07:53 alfuzosin AdvReac Intermediate Nausea/Vomi Verified 08/24/19 07:53 ting/Diarrh ea hydrocodone AdvReac Nausea Verified 08/24/19 07:53 - Social History Does the pt smoke?: No Smoking Status: Never smoker Does the pt drink ETOH?: No Does the pt have substance abuse?: No - Immunizations Immunizations are current?: Yes - POLST Patient has POLST: No POLST Status: Full Code PD ED PE NORMAL - Vitals Vital signs reviewed: Yes (hypertensive) - General General: Alert and oriented X 3, Well developed/nourished - HEENT HEENT: Atraumatic, Other (Left anterior epistaxis, with ongoing bleeding.) - Neck Neck: No adenopathy, No JVD - Cardiac Cardiac: RRR - Respiratory Respiratory: No respiratory distress, Clear bilaterally - Abdomen Abdomen: Soft, Non tender - Derm Derm: No rash - Extremities Extremities: No edema - Neuro Neuro: Alert and oriented X 3, No motor deficit, Normal speech Results - Vitals Vitals: Oxygen O2 Source [With Activity] Room air O2 Source Room air - Labs Labs: Laboratory Tests 08/24/19 08:14 WBC 8.1 RBC 3.27 L Hgb 9.3 L Hct 28.8 L MCV 88.1 MCH 28.4 MCHC 32.3 RDW 16.9 H Plt Count 175 MPV 10.2 Neut # (Auto) 5.8 Lymph # (Auto) 1.0 L [place] # (Auto) 1.0 Eos # (Auto) 0.2 Baso # (Auto) 0.1 Absolute Nucleated RBC 0.00 Nucleated RBC % 0.0 Procedures - Epistaxis Site: Left, Anterior Preparation: Afrin, Lidocaine, Clamp / pressure applied Treatment: Anterior rhinorocket Other: Observed - no bleeding, Pt tolerated well, O2 sat WNL, Antibiotics prescribed PD MEDICAL DECISION MAKING - ED course Complexity details: reviewed old records, reviewed results, re-evaluated patient , considered differential, d/w patient, d/w family ED course: The patient's presentation is significant for left anterior epistaxis. CBC revealed anemia with a hemoglobin of 9.3, hematocrit 28.8. This is similar to previous blood count levels. Bleeding was controlled with administration of Afrin nasal spray, topical lidocaine, and a nose clip. A Merocel sponge was inserted without complication. The patient was observed for one half hour and had no recurrent bleeding. Further treatment included administration of metoprolol 50 mg orally and hydralazine 50 mg orally. At the time of discharge she remained hypertensive, but improved from the time of arrival. She is being discharged with prescription for cephalexin. I discussed with her and her family the expected course of healing, removal of nasal sponge in 3 days, as well as potentially worrisome signs or symptoms that should prompt reevaluation in the emergency department. Departure - Departure Disposition: 01 Home, Self Care Clinical Impression: Anterior epistaxis Anemia Qualifiers: Anemia type: unspecified type Qualified Code(s): D64.9 - Anemia, unspecified Hypertension Qualifiers: Hypertension type: unspecified Qualified Code(s): I10 - Essential (primary) hypertension Condition: Stable Instructions: ED Nosebleed Follow-Up: Scheidt,Judye A, DO [Primary Care Provider] - Prescriptions: cephALEXin [Cephalexin] 500 mg PO TID #15 tablet Comments: Keep the nasal packing in place for the next 3 days. Take cephalexin 3 times daily as prescribed. Follow-up for removal of the nasal packing in 3 days. Return to the emergency department if you develop recurrent persistent bleeding despite the nasal pack, or otherwise worsening symptoms. Discharge Date/Time: 08/24/19 10:09
[2019-08-24 08:41] LABS: BASOPHILS # (AUTO) 0.1 10^3/uL (0.0-0.1); BASOPHILS % (AUTO) 0.9 %; EOSINOPHILS # (AUTO) 0.2 10^3/uL (0.0-0.7); EOSINOPHILS % (AUTO) 2.4 %; HGB - HEMOGLOBIN 9.3 g/dL (12.0-16.0); LYMPHOCYTES % (AUTO) 12.3 %; MEAN CORPUSCULAR HEMOGLOBIN 28.4 pg (27.0-31.0); MEAN CORPUSCULAR HGB CONC 32.3 g/dL (32.0-36.0); MEAN CORPUSCULAR VOLUME 88.1 fL (81.0-99.0); MEAN PLATELET VOLUME 10.2 fL (7.9-10.8); MONOCYTES % (AUTO) 12.6 %; NEUTROPHILS # (AUTO) 5.8 10^3/uL (1.5-6.6); NEUTROPHILS % (AUTO) 71.2 %; PLT - PLATELET COUNT 175 10^3/uL (130-450); RED BLOOD COUNT 3.27 10^6/uL (4.20-5.40); RED CELL DISTRIBUTION WIDTH 16.9 % (12.0-15.0); WHITE BLOOD COUNT 8.1 x10^3/uL (4.8-10.8)
[2019-08-24] MEDS ORDERED: METOPROLOL SUCCINATE 50 MG TABLET PO STA (08:59)
[2019-08-24] MEDS ORDERED: hydrALAZINE 25 MG TABLET PO STA (09:02)
[2019-08-24 10:02] VITALS: BP 201/67
== END 2019-08-24 10:09 | disposition home or self-care (01) ==
LOC: ED 07:28
DX: R04.0 Epistaxis (principal); D64.9 Anemia, unspecified; I10 Essential (primary) hypertension; Z79.82 Long term (current) use of aspirin
CPT/HCPCS: 30901; 36415; 85025; 99283; A9270

== ENCOUNTER 2019-10-26 07:13 | Outpatient (CLI) | payer MEDICARE, OTHER ==
[2019-10-26 18:35] LABS: HGB - HEMOGLOBIN 10.9 g/dL (12.0-16.0); MEAN CORPUSCULAR HEMOGLOBIN 28.2 pg (27.0-31.0); MEAN CORPUSCULAR HGB CONC 29.4 g/dL (32.0-36.0); MEAN CORPUSCULAR VOLUME 95.9 fL (81.0-99.0); MEAN PLATELET VOLUME 11.4 fL (7.9-10.8); RED BLOOD COUNT 3.87 10^6/uL (4.20-5.40); RED CELL DISTRIBUTION WIDTH 16.4 % (12.0-15.0); WHITE BLOOD COUNT 5.7 x10^3/uL (4.8-10.8)
[2019-10-26 18:44] LABS: CALCIUM 9.3 mg/dL (8.5-10.3); CREATININE 1.6 mg/dL (0.4-1.0)
== END 2019-10-26 23:59 | disposition home or self-care (01) ==
LOC: LAB.WCP 07:13
PROVIDERS: ATTEND Family Medicine
DX: I50.9 Heart failure, unspecified (principal)
CPT/HCPCS: 36415; 80048; 83880; 85027

== ENCOUNTER 2019-11-09 10:11 | Outpatient (CLI) | payer MEDICARE, OTHER | END 2019-11-09 10:12 | disposition home or self-care (01) | LOC: DI 10:11 | PROVIDERS: ATTEND Family Medicine | DX: I50.9 Heart failure, unspecified (principal); I08.1 Rheumatic disorders of both mitral and tricuspid valves; I27.20 Pulmonary hypertension, unspecified; Z95.2 Presence of prosthetic heart valve; R18.8 Other ascites | CPT/HCPCS: 93306 ==

== ENCOUNTER 2019-12-26 14:09 | Outpatient (CLI) | payer MEDICARE, OTHER ==
--- NOTE | 2019-12-27 10:29 | XRAY Report ---
Reason: CONGESTIVE HEART FAILURE Procedure Date: 12/26/2019 Accession Number: [id number] / [id number] Procedure: WCP - Chest 2 View X-Ray CPT Code: 93986 Final Report FULL RESULT: EXAM: CHEST RADIOGRAPHY EXAM DATE: 12/26/2019 02:09 PM. CLINICAL HISTORY: Congestive heart failure. Cough, dyspnea on exertion, swelling. COMPARISON: CHEST 2 VIEW 03/20/2019 10:05 AM. TECHNIQUE: 2 views. FINDINGS: Lungs/Pleura: No focal opacities evident. There is a small right pleural effusion. No left pleural effusion. No pneumothorax. Normal volumes. Mediastinum: There is stable mild enlargement of the cardiac silhouette. A prosthetic valve ring is present. There is extensive atherosclerotic calcification of the aortic arch. Other: The patient is post median sternotomy with intact sternal cerclage wires. No acute osseous abnormality. IMPRESSION: 1. Small right pleural effusion. 2. Stable mild cardiomegaly. 3. No pulmonary vascular congestion appreciated. RADIA
== END 2019-12-26 23:59 | disposition home or self-care (01) ==
LOC: DI.WCP 14:09
PROVIDERS: ATTEND Family Medicine
DX: I50.9 Heart failure, unspecified (principal); J90 Pleural effusion, not elsewhere classified
CPT/HCPCS: 71046

== ENCOUNTER 2019-12-26 15:23 | Outpatient (CLI) | payer MEDICARE, OTHER ==
[2019-12-26 15:56] LABS: ALBUMIN 3.5 g/dL (3.2-5.5); ALBUMIN/GLOBULIN RATIO 0.8 (1.0-2.2); BILIRUBIN,TOTAL 1.1 mg/dL (0.2-1.0); CALCIUM 8.9 mg/dL (8.5-10.3); CREATININE 1.5 mg/dL (0.4-1.0); TOTAL PROTEIN 8.1 g/dL (6.7-8.2)
== END 2019-12-26 15:24 | disposition home or self-care (01) ==
LOC: LAB 15:23
PROVIDERS: ATTEND Family Medicine
DX: I50.9 Heart failure, unspecified (principal)
CPT/HCPCS: 36415; 80053; 83880

== ENCOUNTER 2019-12-31 11:10 | Outpatient (CLI) | payer MEDICARE, OTHER ==
--- NOTE | 2020-01-07 15:48 | XRAY Report ---
Reason: CONGESTIVE HEART FAILURE Procedure Date: 12/31/2019 Accession Number: [id number] / [id number] Procedure: WCP - Chest 2 View X-Ray CPT Code: 59677 Final Report FULL RESULT: EXAM: CHEST RADIOGRAPHY EXAM DATE: 12/31/2019 11:10 AM CLINICAL HISTORY: Short of breath, follow-up pleural effusion. COMPARISON: CHEST 2 VIEW 12/26/2019 1:44 PM. TECHNIQUE: 2 views. FINDINGS: Lungs/Pleura: No overt edema currently. Stable small right pleural effusion with adjacent atelectasis. No gross pneumothorax. Mediastinum: Stable borderline heart size. Stable calcified thoracic aorta. Other: Previous median sternotomy. IMPRESSION: 1. Borderline cardiomegaly without overt heart failure. 2. Stable small right pleural effusion with adjacent atelectasis. RADIA
== END 2019-12-31 23:59 | disposition home or self-care (01) ==
LOC: DI.WCP 11:10
PROVIDERS: ATTEND Family Medicine
DX: I50.9 Heart failure, unspecified (principal)
CPT/HCPCS: 71046

== ENCOUNTER 2020-01-01 08:00 | Outpatient (CLI) | payer MEDICARE, OTHER ==
[2020-01-01 19:04] LABS: CALCIUM 9.1 mg/dL (8.5-10.3)
== END 2020-01-01 23:59 | disposition home or self-care (01) ==
LOC: LAB.WCP 08:00
PROVIDERS: ATTEND Family Medicine
DX: I11.0 Hypertensive heart disease with heart failure (principal); I50.9 Heart failure, unspecified
CPT/HCPCS: 36415; 80048; 83880

== ENCOUNTER 2020-01-08 08:00 | Outpatient (CLI) | payer MEDICARE, OTHER ==
[2020-01-08 19:23] LABS: CALCIUM 9.3 mg/dL (8.5-10.3); CREATININE 1.9 mg/dL (0.4-1.0)
== END 2020-01-08 23:59 | disposition home or self-care (01) ==
LOC: LAB.WCP 08:00
PROVIDERS: ATTEND Internal Medicine Nephrology
DX: N05.9 Unspecified nephritic syndrome with unspecified morphologic changes (principal)
CPT/HCPCS: 80048

== ENCOUNTER 2020-01-14 15:03 | Outpatient (CLI) | payer MEDICARE, OTHER ==
--- NOTE | 2020-01-15 04:40 | XRAY Report ---
Reason: PLEURAL EFFUSION Procedure Date: 01/14/2020 Accession Number: [id number] / [id number] Procedure: WCP - Chest 2 View X-Ray CPT Code: 63240 Final Report FULL RESULT: EXAM: CHEST RADIOGRAPHY EXAM DATE: 01/14/2020 03:03 PM. CLINICAL HISTORY: PLEURAL EFFUSION. COMPARISON: CHEST 2 VIEW 12/31/2019 10:32 AM. TECHNIQUE: 2 views. FINDINGS: Sternotomy wires are seen in the midline. The valvular ring is reidentified. Atherosclerotic plaque calcifications are seen in the aorta. The heart is mildly enlarged. There is no focal consolidation. The small right pleural effusion is unchanged. There is no pneumothorax. Degenerative changes are reidentified in the spine. IMPRESSION: Small right pleural effusion, unchanged. RADIA
== END 2020-01-14 23:59 | disposition home or self-care (01) ==
LOC: DI.WCP 15:03
PROVIDERS: ATTEND Family Medicine
DX: J90 Pleural effusion, not elsewhere classified (principal)
CPT/HCPCS: 71046

== ENCOUNTER 2020-01-23 10:40 | Outpatient (CLI) | payer MEDICARE, OTHER ==
[2020-01-23 19:08] LABS: CALCIUM 9.1 mg/dL (8.5-10.3); CREATININE 1.9 mg/dL (0.4-1.0)
== END 2020-01-23 23:59 | disposition home or self-care (01) ==
LOC: LAB.WCP 10:40
PROVIDERS: ATTEND Internal Medicine Nephrology
DX: N05.9 Unspecified nephritic syndrome with unspecified morphologic changes (principal)
CPT/HCPCS: 36415; 80048

== ENCOUNTER 2020-01-30 08:00 | Outpatient (CLI) | payer MEDICARE, OTHER ==
[2020-01-30 19:04] LABS: CALCIUM 9.1 mg/dL (8.5-10.3); CREATININE 2.2 mg/dL (0.4-1.0)
== END 2020-01-30 23:59 | disposition home or self-care (01) ==
LOC: LAB.WCP 08:00
PROVIDERS: ATTEND Internal Medicine Nephrology
DX: N05.9 Unspecified nephritic syndrome with unspecified morphologic changes (principal)
CPT/HCPCS: 36415; 80048

== ENCOUNTER 2020-01-30 21:00 | Emergency (ER) | payer MEDICARE, OTHER ==
[2020-01-30 21:59] LABS: BASOPHILS # (AUTO) 0.1 10^3/uL (0.0-0.1); BASOPHILS % (AUTO) 0.8 %; EOSINOPHILS # (AUTO) 0.2 10^3/uL (0.0-0.7); EOSINOPHILS % (AUTO) 2.4 %; HGB - HEMOGLOBIN 10.2 g/dL (12.0-16.0); LYMPHOCYTES # (AUTO) 0.7 10^3/uL (1.5-3.5); LYMPHOCYTES % (AUTO) 9.3 %; MEAN CORPUSCULAR HEMOGLOBIN 30.2 pg (27.0-31.0); MEAN CORPUSCULAR VOLUME 91.4 fL (81.0-99.0); MONOCYTES # (AUTO) 0.8 10^3/uL (0.0-1.0); MONOCYTES % (AUTO) 9.4 %; NEUTROPHILS # (AUTO) 6.2 10^3/uL (1.5-6.6); NEUTROPHILS % (AUTO) 77.6 %; PLT - PLATELET COUNT 193 10^3/uL (130-450); RED BLOOD COUNT 3.38 10^6/uL (4.20-5.40); RED CELL DISTRIBUTION WIDTH 16.4 % (12.0-15.0)
[2020-01-30 22:15] LABS: ALBUMIN 3.5 g/dL (3.2-5.5); ALBUMIN/GLOBULIN RATIO 0.8 (1.0-2.2); BILIRUBIN,TOTAL 1.4 mg/dL (0.2-1.0); CALCIUM 8.9 mg/dL (8.5-10.3); CREATININE 2.2 mg/dL (0.4-1.0); TOTAL PROTEIN 8.1 g/dL (6.7-8.2)
[2020-01-30] MEDS ORDERED: POTASSIUM CHLORIDE 20 MEQ TABLET PO STA (22:21)
--- NOTE | 2020-01-30 22:46 | ED Physician Documentation ---
History of Present Illness - Stated complaint Stated Complaint: ABNORMAL LABS - Chief complaint Chief Complaint: General - History obtained from History obtained from: Patient, Family - History of Present Illness Timing: Today - Additonal information Additional information: 89-year-old female with chronic renal failure over the past year had routine blood work done today and was asked by the on-call liability claims manager to come to the emergency department for potassium. The patient's is taking torsemide she has recently changed from Lasix to torsemide and she does have potassium at home she is taking 20 mEq/day. She is under the care of Dr. ARTUR Byrne and Dr. Eula Christianson. She states that otherwise she does not feel ill. She has had problems with congestive heart failure related to renal failure. 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 Review of Systems Constitutional: denies: Fever, Chills, Myalgias Eyes: denies: Decreased vision Ears: denies: Ear pain Nose: denies: Rhinorrhea / runny nose, Congestion Throat: denies: Sore throat Cardiac: denies: Chest pain / pressure, Palpitations Respiratory: reports: Dyspnea, Cough GI: denies: Abdominal Pain, Nausea, Vomiting : denies: Dysuria, Frequency Musculoskeletal: denies: Neck pain, Back pain, Extremity pain, Extremity swelling PD PAST MEDICAL HISTORY - Past Medical History Cardiovascular: Hypertension, High cholesterol, Atrial fibrillation, Murmur, Valve disorder Respiratory: Asthma Neuro: CVA, TIA, Other Endocrine/Autoimmune: Other GI: GERD, Hemorrhoids, Other [employer] DEVELOPER: Breast cancer : Other HEENT: Chronic vision loss, Dental implants Psych: None Musculoskeletal: Osteoarthritis, Rheumatoid arthritis, Osteopenia Derm: Other - Past Surgical History Past Surgical History: Yes General: Colonoscopy Ortho: Hip replacement, Knee replacement /[employer] DEVELOPER: Hysterectomy, Mastectomy Cardiovascular: Valve replacement, Other HEENT: Cataracts, Tonsil/Adenoidectomy, Other Derm: Skin grafts, Skin cancer surgery - Present Medications Home Medications: Ambulatory Orders Medication Instructions Recorded Confirmed Multivit,Calc,Mins/Folic Acid 200 mcg PO DAILY #30 tablet 11/20/18 08/24/19 [One-A-Day Proactive 65 Plus Tb] Rosuvastatin Calcium [Crestor] 10 mg PO DAILY #30 tablet 11/20/18 08/24/19 Pantoprazole [Protonix] 40 mg PO DAILY PRN 12/12/18 08/24/19 Cholecalciferol (Vitamin D3) 2,000 unit PO DAILY 01/08/19 08/24/19 [Vitamin D3] Ferrous Sulfate 325 mg PO DAILYWM 01/08/19 08/24/19 Aspirin EC [Ecotrin] 325 mg PO DAILY #30 tablet 01/11/19 08/24/19 Furosemide [Lasix] 40 mg PO MOWEFR #15 tablet 01/11/19 08/24/19 Metoprolol Succinate [Toprol Xl] 50 mg PO BID #60 tab.er.24h 01/11/19 08/24/19 Sodium Bicarbonate 650 mg PO DAILY #30 tablet 01/11/19 08/24/19 hydrALAZINE [Apresoline] 50 mg PO BID #60 tablet 01/11/19 08/24/19 Albuterol 2.5 mg INH Q4H PRN 08/24/19 08/24/19 Ubidecarenone [Co Q-10] 30 mg PO 08/24/19 cephALEXin [Cephalexin] 500 mg PO TID #15 tablet 08/24/19 - Allergies Allergies/Adverse Reactions: Allergies Allergy/AdvReac Type Severity Reaction Status Date / Time Sulfa (Sulfonamide Allergy Intermediate Rash Verified 08/24/19 07:53 Antibiotics) celecoxib [From Celebrex] Allergy Unknown Verified 08/24/19 07:53 pollen extracts Allergy Unknown Verified 08/24/19 07:53 propoxyphene [From Darvon] Allergy Unknown Verified 08/24/19 07:53 alfuzosin AdvReac Intermediate Nausea/Vomi Verified 08/24/19 07:53 ting/Diarrh ea hydrocodone AdvReac Nausea Verified 08/24/19 07:53 spironolactone AdvReac hyperkalemi Verified 08/27/19 07:28 [From Aldactone] a telmisartan AdvReac renal Verified 08/27/19 07:28 issues - Social History Does the pt smoke?: No Smoking Status: Never smoker Does the pt drink ETOH?: No Does the pt have substance abuse?: No - Immunizations Immunizations are current?: Yes - POLST Patient has POLST: No POLST Status: Full Code PD ED PE NORMAL - Vitals Vital signs reviewed: Yes (hypertensive ) - General General: No acute distress, Well developed/nourished - HEENT HEENT: Atraumatic, PERRL, EOMI - Neck Neck: Supple, no meningeal sign, No bony TTP - Cardiac Cardiac: RRR, No murmur - Respiratory Respiratory: No respiratory distress, Clear bilaterally - Abdomen Abdomen: Soft, Non tender, Other (The abdomen is distended with a fluid wave. ) - Back Back: No CVA TTP, No spinal TTP - Derm Derm: Warm and dry, Other (bronze color to the skin ) - Extremities Extremities: No deformity, Other (There is tightness to the skin of the left calf without significant edema. ) - Neuro Neuro: Alert and oriented X 3, human service coordinator 2-12 intact, No motor deficit, No sensory deficit, Normal speech Eye Opening: Spontaneous Motor: Obeys Commands Verbal: Oriented GCS Score: 15 - Psych Psych: Normal mood, Normal affect Results - Vitals Vitals: Vital Signs - 24 hr 01/30/20 01/30/20 21:03 23:01 Temperature 36.4 C L Heart Rate 57 L 79 Respiratory 20 Rate Blood Pressure 155/67 H 157/66 H O2 Saturation 95 98 Oxygen O2 Source [] Room air O2 Source Room air - EKG (time done) 2121 Rate: Rate (enter#) (56) QRS: LVH Compare to prior EKG: Changed from prior EKG (SPT 01-07-2019 the rate has decreased and the LVH strain pattern has resolved. ) Computer interpretation: Agree with computer - Labs Labs: Laboratory Tests 01/30/20 01/30/20 01/30/20 21:56 21:56 21:56 WBC 8.0 RBC 3.38 L Hgb 10.2 L Hct 30.9 L MCV 91.4 MCH 30.2 MCHC 33.0 RDW 16.4 H Plt Count 193 MPV 10.0 Neut # (Auto) 6.2 Lymph # (Auto) 0.7 L [place] # (Auto) 0.8 Eos # (Auto) 0.2 Baso # (Auto) 0.1 Absolute Nucleated RBC 0.00 Nucleated RBC % 0.0 Sodium 136 Potassium 3.0 L Chloride 91 L Carbon Dioxide 30 Anion Gap 15.0 H BUN 78 H Creatinine 2.2 H Estimated GFR (MDRD) 21 L Glucose 132 H Lactic Acid 1.6 Calcium 8.9 Total Bilirubin 1.4 H AST 45 H ALT 30 Alkaline Phosphatase 133 H Total Protein 8.1 Albumin 3.5 Globulin 4.6 H Albumin/Globulin Ratio 0.8 L Lipase 42 Procedures - Bedside sono Bedside sono by EMP: With use of bedside ultrasound the abdomen is imaged for the purpose of documenting the presence of ascites. Ascites is present. - IVC sono (time) 2214 Bedside IVC sono: IVC measures (cm) (1.87), IVC collapsed c insp (cm) (1.87), Euvolemia, High CVP (non-collapsing but under 2.5) PD MEDICAL DECISION MAKING - ED course Complexity details: reviewed old records, reviewed results, re-evaluated patient, considered differential, d/w patient, d/w family ED course: 89-year-old female who is on torsemide for fluid retention has ascites and does not appear to have much in the way of peripheral edema today she has clear lungs and her inferior vena cava is 1.87 without collapse indicating a good volume but with elevated central venous pressure. She does not appear to be in acute failure. Her potassium on repeat today is 3.0 ( she does have potassium at home 10meq bid) and she is administered 40 mEq of potassium orally. I have asked her to talk to Dr. Jimenez about increasing her potassium. Departure - Departure Disposition: 01 Home, Self Care Clinical Impression: Hypokalemia Condition: Stable Instructions: ED Potassium Deficiency Follow-Up: Margret Christianson DO [Primary Care Provider] - Comments: Today in the emergency department on repeat examination your potassium was 3.0. I suspect the low potassium has to do with the change in your diuretic and I would like you to contact Dr. Byrne about adjusting your dose of potassium. Today on examination we did find that you have ascites in your abdomen and your volume status was normal. Discharge Date/Time: 01/30/20 23:01
[2020-01-30 23:01] VITALS: BP 157/66
== END 2020-01-30 23:01 | disposition home or self-care (01) ==
LOC: ED 21:00
DX: E87.6 Hypokalemia (principal); I12.9 Hypertensive chronic kidney disease with stage 1 through stage 4 chronic kidney disease, or unspecified chronic kidney disease; N18.9 Chronic kidney disease, unspecified; R18.8 Other ascites; N05.9 Unspecified nephritic syndrome with unspecified morphologic changes
CPT/HCPCS: 36415; 80048; 80053; 83605; 83690; 85025; 93005; 99283; A9270

== ENCOUNTER 2020-02-05 08:00 | Outpatient (CLI) | payer MEDICARE, OTHER ==
[2020-02-05 19:06] LABS: CALCIUM 9.2 mg/dL (8.5-10.3); CREATININE 2.3 mg/dL (0.4-1.0)
== END 2020-02-05 23:59 | disposition home or self-care (01) ==
LOC: LAB.WCP 08:00
PROVIDERS: ATTEND Internal Medicine Nephrology
DX: N05.9 Unspecified nephritic syndrome with unspecified morphologic changes (principal); E87.6 Hypokalemia
CPT/HCPCS: 36415; 80048

== ENCOUNTER 2020-02-12 10:40 | Outpatient (CLI) | payer MEDICARE, OTHER ==
[2020-02-12 12:55] LABS: CREATININE 2.9 mg/dL (0.4-1.0)
== END 2020-02-12 23:59 | disposition home or self-care (01) ==
LOC: LAB.WCP 10:40
PROVIDERS: ATTEND Internal Medicine Nephrology
DX: N05.9 Unspecified nephritic syndrome with unspecified morphologic changes (principal)
CPT/HCPCS: 36415; 80048

== ENCOUNTER 2020-03-12 11:30 | Outpatient (CLI) | payer MEDICARE, OTHER ==
[2020-03-12 16:55] LABS: HGB - HEMOGLOBIN 9.5 g/dL (12.0-16.0); MEAN CORPUSCULAR HEMOGLOBIN 29.7 pg (27.0-31.0); MEAN CORPUSCULAR HGB CONC 31.5 g/dL (32.0-36.0); MEAN CORPUSCULAR VOLUME 94.4 fL (81.0-99.0); MEAN PLATELET VOLUME 10.7 fL (7.9-10.8); RED BLOOD COUNT 3.2 10^6/uL (4.20-5.40); RED CELL DISTRIBUTION WIDTH 15.2 % (12.0-15.0); WHITE BLOOD COUNT 5.6 x10^3/uL (4.8-10.8)
[2020-03-12 16:59] LABS: CALCIUM 8.9 mg/dL (8.5-10.3); CREATININE 2.9 mg/dL (0.4-1.0)
== END 2020-03-12 23:59 | disposition home or self-care (01) ==
LOC: LAB.WCP 11:30
PROVIDERS: ATTEND Internal Medicine Nephrology
DX: N05.9 Unspecified nephritic syndrome with unspecified morphologic changes (principal); D70.9 Neutropenia, unspecified; D63.1 Anemia in chronic kidney disease; N18.9 Chronic kidney disease, unspecified
CPT/HCPCS: 36415; 80048; 85027

== ENCOUNTER 2020-04-01 08:00 | Outpatient (CLI) | payer MEDICARE, OTHER ==
[2020-04-01 13:15] LABS: HGB - HEMOGLOBIN 9.1 g/dL (12.0-16.0); MEAN CORPUSCULAR HGB CONC 32.3 g/dL (32.0-36.0); MEAN CORPUSCULAR VOLUME 93.1 fL (81.0-99.0); MEAN PLATELET VOLUME 10.2 fL (7.9-10.8); RED BLOOD COUNT 3.03 10^6/uL (4.20-5.40); RED CELL DISTRIBUTION WIDTH 14.9 % (12.0-15.0); WHITE BLOOD COUNT 5.7 x10^3/uL (4.8-10.8)
[2020-04-01 13:31] LABS: CALCIUM 8.6 mg/dL (8.5-10.3); CREATININE 2.8 mg/dL (0.4-1.0); PHOSPHORUS 5.4 mg/dL (2.5-4.6)
== END 2020-04-01 23:59 | disposition home or self-care (01) ==
LOC: LAB.WCP 08:00
PROVIDERS: ATTEND Internal Medicine Nephrology
DX: N05.9 Unspecified nephritic syndrome with unspecified morphologic changes (principal); I50.32 Chronic diastolic (congestive) heart failure; D70.9 Neutropenia, unspecified; D63.1 Anemia in chronic kidney disease; E83.30 Disorder of phosphorus metabolism, unspecified; N25.81 Secondary hyperparathyroidism of renal origin; N18.9 Chronic kidney disease, unspecified
CPT/HCPCS: 36415; 80048; 83880; 83970; 84100; 85025; 85027